=== PATIENT | female | born 1960 | race Caucasian/White ===

== ENCOUNTER 2019-07-09 10:36 | Emergency (ER) | payer SELFPAY ==
[~2019-07-09] VITALS: Ht 167.7 cm; Wt 79.4 kg
[2019-07-09 11:09] LABS: BASOPHILS % (AUTO) 0 % (0-10); EOSINOPHILS # (AUTO) 0.1 10^3/uL (0.0-0.3); EOSINOPHILS % (AUTO) 2 % (0-10); HEMATOCRIT 46 % (35-52); HEMOGLOBIN 15.2 G/DL (11.5-16.0); LYMPHOCYTES # (AUTO) 2.1 X 10^3 (1.0-4.0); LYMPHOCYTES % (AUTO) 29 % (12-44); MEAN CORPUSCULAR HEMOGLOBIN 31 PG (25-34); MEAN CORPUSCULAR HGB CONC 33 G/DL (32-36); MEAN CORPUSCULAR VOLUME 95 FL (80-99); MEAN PLATELET VOLUME 9.7 FL (7.4-10.4); MONOCYTES # (AUTO) 0.8 X 10^3 (0.0-1.0); MONOCYTES % (AUTO) 11 % (0-12); NEUTROPHILS # (AUTO) 4.1 X 10^3 (1.8-7.8); NEUTROPHILS % (AUTO) 57 % (42-75); PLATELET COUNT 349 10^3/uL (130-400); RED CELL DISTRIBUTION WIDTH 14.4 % (10.0-14.5); WHITE BLOOD COUNT 7.2 10^3/uL (4.3-11.0)
[2019-07-09] MEDS ORDERED: NS IV 1000 ML 1,000 ML ONE (11:12)
[2019-07-09] MEDS ORDERED: fentaNYL INJECTION 100 MCG/2 ML AMP IVP ONE (11:15)
[2019-07-09] MEDS ORDERED: NS IV 1000 ML 1,000 ML IV SCH (11:17)
--- NOTE | 2019-07-09 11:17 | ED General ---
General Chief Complaint: Respiratory Problems Stated Complaint: SOA Nursing Triage Note: pt amb to rm 9 with complaint of right sided rib pain and soa. states has been going on since june 06. has had a sore throat and fever during this time period. Nursing Sepsis Screen: No Definite Risk Source of Information: Patient Exam Limitations: No Limitations History of Present Illness Date Seen by Provider: Jul 09, 2019 Time Seen by Provider: 11:00 Initial Comments This 58-year-old woman presents to the emergency room with fairly excruciating pain in the right lower chest and chest wall. She first noticed the pain on June 06. She has a history of breast cancer and mastectomy on the right side. She has not seen an oncologist for 6 years and quit taking tamoxifen about 5 years ago because she could not afford it. She reports one day of fever in the past month. She is also had cough and sore throat which have now improved. She has no rash in the area of pain. Her chest wall is tender to palpation. Allergies and Home Medications Allergies Coded Allergies: No Known Drug Allergies (Unverified , 07/09/19) Home Medications Docusate Sodium 100 Mg Capsule, 100 MG PO DAILY Prescribed by: BLUE SANTOYO on 07/09/19 1312 Oxycodone HCl/Acetaminophen 1 Each Tablet, 1 TAB PO Q4H PRN for PAIN-MODERATE (5-7) Prescribed by: BLUE SANTOYO on 07/09/19 1313 Patient Home Medication List Home Medication List Reviewed: Yes Review of Systems Review of Systems Constitutional: see HPI EENTM: no symptoms reported Respiratory: see HPI Cardiovascular: no symptoms reported Gastrointestinal: no symptoms reported Genitourinary: no symptoms reported : No Musculoskeletal: see HPI Skin: no symptoms reported Psychiatric/Neurological: No Symptoms Reported Hematologic/Lymphatic: No Symptoms Reported Immunological/Allergic: no symptoms reported Past Yrzgwqz-Dzjxxu-Faxsjm Hx Past Med/Social Hx: Reviewed Nursing Past Med/Soc Hx Patient Social History Alcohol Use: Denies Use Recreational Drug Use: No Smoking Status: Current Everyday Smoker Type Used: Cigarettes Recent Foreign Travel: No Contact w/Someone Who Travel: No Recent Infectious Disease Expo: No Recent Hopitalizations: No Immunizations Up To Date Tetanus Booster (TDap): Unknown Seasonal Allergies Seasonal Allergies: No Past Medical History Surgeries: Yes Breast Respiratory: No Cardiac: No Neurological: No Genitourinary: No Gastrointestinal: No Musculoskeletal: No Endocrine: No HEENT: No Cancer: Yes Breast Did You Recieve Any Treatments: Yes What Type of Treatment Did You: Surgical Intervention Psychosocial: No Integumentary: No Blood Disorders: No Adverse Reaction/Blood Tranf: No Physical Exam Vital Signs Vital Signs - First Documented 07/09/19 10:36 Temp 36.2 Pulse 84 Resp 22 B/P (MAP) 118/79 (92) Pulse Ox 94 O2 Delivery Room Air Capillary Refill : Less Than 3 Seconds Height, Weight, BMI Height: '" Weight: lbs. oz. kg; 28.00 BMI Method: General Appearance: WD/WN, Mild Distress HEENT: PERRL/EOMI, TMs Normal, Normal ENT Inspection, Pharynx Normal Neck: Normal Inspection; No JVD Respiratory: No Accessory Muscle Use, No Respiratory Distress, Other (chest wall tender to palpation over the right lower anterior and lateral chest. No masses apparent. There are rubs and wheezes heard on the right. Left lung is clear.) Cardiovascular: Regular Rate, Rhythm, No Edema, No Murmur Gastrointestinal: Normal Bowel Sounds, Non Tender, Soft Extremity: Normal Inspection, No Pedal Edema Neurologic/Psychiatric: Alert, Oriented x3, No Motor/Sensory Deficits, Normal Mood/Affect, governor assembler hydraulic II-XII Norm as Tested Skin: Normal Color, Warm/Dry Progress/Results/Core Measures Suspected Sepsis Recent Fever Within 48 Hours: No Infection Criteria Present: None New/Unexplained Altered Menta: No Sepsis Screen: No Definite Risk SIRS Temperature: Pulse: 84 Respiratory Rate: 22 Laboratory Tests 07/09/19 10:49: White Blood Count 7.2 Blood Pressure 118 /79 Mean: 92 Laboratory Tests 07/09/19 10:49: Creatinine 0.81, Platelet Count 349, Total Bilirubin 0.5 Results/Orders Lab Results Laboratory Tests Test 07/09/19 10:49 Range/Units White Blood Count 7.2 4.3-11.0 10^3/uL Red Blood Count 4.86 4.35-5.85 10^6/uL Hemoglobin 15.2 11.5-16.0 G/DL Hematocrit 46 35-52 % Mean Corpuscular Volume 95 80-99 FL Mean Corpuscular Hemoglobin 31 25-34 PG Mean Corpuscular Hemoglobin Concent 33 32-36 G/DL Red Cell Distribution Width 14.4 10.0-14.5 % Platelet Count 349 130-400 10^3/uL Mean Platelet Volume 9.7 7.4-10.4 FL Neutrophils (%) (Auto) 57 42-75 % Lymphocytes (%) (Auto) 29 12-44 % Monocytes (%) (Auto) 11 0-12 % Eosinophils (%) (Auto) 2 0-10 % Basophils (%) (Auto) 0 0-10 % Neutrophils # (Auto) 4.1 1.8-7.8 X 10^3 Lymphocytes # (Auto) 2.1 1.0-4.0 X 10^3 Monocytes # (Auto) 0.8 0.0-1.0 X 10^3 Eosinophils # (Auto) 0.1 0.0-0.3 10^3/uL Basophils # (Auto) 0.0 0.0-0.1 10^3/uL D-Dimer < 0.27 0.00-0.49 UG/ML Sodium Level 141 135-145 MMOL/L Potassium Level 4.1 3.6-5.0 MMOL/L Chloride Level 107 98-107 MMOL/L Carbon Dioxide Level 21 21-32 MMOL/L Anion Gap 13 5-14 MMOL/L Blood Urea Nitrogen 13 7-18 MG/DL Creatinine 0.81 0.60-1.30 MG/DL Estimat Glomerular Filtration Rate > 60 BUN/Creatinine Ratio 16 Glucose Level 111 H 70-105 MG/DL Calcium Level 8.9 8.5-10.1 MG/DL Corrected Calcium 8.7 8.5-10.1 MG/DL Total Bilirubin 0.5 0.1-1.0 MG/DL Aspartate Amino Transf (AST/SGOT) 17 5-34 U/L Alanine Aminotransferase (ALT/SGPT) 13 0-55 U/L Alkaline Phosphatase 92 40-136 U/L C-Reactive Protein High Sensitivity 0.68 H 0.00-0.50 MG/DL Total Protein 7.0 6.4-8.2 GM/DL Albumin 4.3 3.2-4.5 GM/DL Group A Streptococcus Screen NEGATIVE NEGATIVE Micro Results Microbiology 07/09/19 Influenza Types A,B Antigen (ADRIAN) - Final, Complete My Orders Orders - BLUE RUDOLPH MD Cbc With Automated Diff (07/09/19 11:02) Comprehensive Metabolic Panel (07/09/19 11:02) Hs C Reactive Protein (07/09/19 11:02) Fibrin Degradation Products (07/09/19 11:02) Chest 1 View, Ap/Pa Only (07/09/19 11:02) Rapid Strep A Screen (07/09/19 11:02) Influenza A And B Antigens (07/09/19 11:02) Ed Iv/Invasive Line Start (07/09/19 11:02) Fentanyl Injection (Sublimaze Injection (07/09/19 11:15) Ns Iv 1000 Ml (Sodium Chloride 0.9%) (07/09/19 11:17) Ns Iv 1000 Ml (Sodium Chloride 0.9%) (07/09/19 11:12) Ct Chest W (07/09/19 11:39) Iohexol Injection (Omnipaque 350 Mg/Ml 1 (07/09/19 11:45) Received Contrast (Hold Metformin- Contr (07/09/19 11:45) Ns (Ivpb) (Sodium Chloride 0.9% Ivpb Bag (07/09/19 11:45) Oxycodone/Apap 5/325mg Tablet (Percocet (07/09/19 13:00) Ketorolac Injection (Toradol Injection) (07/09/19 13:00) Medications Given in ED Current Medications Medications Dose Ordered Sig/Ramona Route Start Time Stop Time Status Last Admin Dose Admin Fentanyl Citrate 50 mcg ONCE ONCE IVP 07/09/19 11:15 07/09/19 11:16 DC 07/09/19 11:24 50 MCG Iohexol 75 ml ONCE ONCE IV 07/09/19 11:45 07/09/19 11:50 DC 07/09/19 13:06 75 ML Ketorolac Tromethamine 15 mg ONCE ONCE IVP 07/09/19 13:00 07/09/19 13:01 DC 07/09/19 13:05 15 MG Oxycodone/ Acetaminophen 1 tab ONCE ONCE PO 07/09/19 13:00 07/09/19 13:01 DC 07/09/19 13:04 1 TAB Sodium Chloride 100 ml ONCE ONCE IV 07/09/19 11:45 07/09/19 11:50 DC 07/09/19 13:06 80 ML Vital Signs/I&O 07/09/19 10:36 Temp 36.2 Pulse 84 Resp 22 B/P (MAP) 118/79 (92) Pulse Ox 94 O2 Delivery Room Air Capillary Refill : Less Than 3 Seconds Blood Pressure Mean: 92 Progress Note #1: Time: 11:22 Progress Note Patient was seen and examined. Labs and x-ray have been ordered. Patient does desire pain control. Fentanyl was ordered. Progress Note #2: Time: 13:19 Progress Note Chest x-ray revealed a nodular density in the right lung. X-ray was followed by CT scan which showed multiple bilateral pulmonary nodules and bony lesions in the ribs and sternum as well as possibly the liver. This was highly suggestive of metastatic disease from her breast cancer. I discussed the findings with the patient and advised prompt follow-up with the Cancer Center. I spoke with Dr. Steel who would like to see her in the clinic. Patient will stop by the Cancer Center after leaving the emergency room to fill out paperwork and schedule the appointment. Patient's pain was treated with fentanyl followed by Toradol and Percocet. Diagnostic Imaging Diagonstic Imaging: CT Plain Films/CT/US/NM/MRI: chest Comments CT chest viewed by me and report reviewed. See report below: NAME: SANDY MCCALL [facility] REC#: [id number] PT STATUS: REG ER : 1960 PHYSICIAN: BLUE RUDOLPH MD ADMIT DATE: 07/09/19/ER Draft Date of Exam:07/09/19 CT CHEST W TECHNIQUE: Multiple contiguous axial images were obtained through the chest with the use of intravenous contrast. All CT scans use one or more of the following dose optimizing techniques: automated exposure control, MA and/or KvP adjustment based on a patient size and exam type, or iterative reconstruction. INDICATION: Right-sided chest pain. Further evaluation of pulmonary nodule seen on chest radiograph. COMPARISON: Chest radiograph performed earlier same day. FINDINGS: Lungs and airway: No endoluminal nodule within the trachea. There is a rounded right upper lobe pulmonary nodule measuring 2.4 x 2.1 x 2.4 cm. Additionally, there are bilateral lower lobe rounded pulmonary nodules. There are at least 2 nodules in the right lower lobe with the largest measuring 0.9 cm. The largest nodule in the left lower lobe measures 1.0 cm. Pleura: There is some soft tissue nodularity along the anterior and medial aspects of the right visceral pleura. No left pleural nodularity. No pleural effusion. Heart and mediastinum: No subclavicular or axillary lymphadenopathy. Right axillary lymph node dissection has been performed. There are a few mildly enlarged mediastinal lymph nodes with the largest patient accounting representative lymph node measuring 1.1 cm in the lower right paratracheal position. No hilar lymphadenopathy. No juxtaphrenic lymphadenopathy. Small sliding-type hiatal hernia. Normal caliber thoracic aorta. Heart is normal in size without pericardial effusion. Upper abdomen: Subcentimeter hypodensity in the left hepatic lobe is too small to characterize. Musculoskeletal: Erosive changes involving the right medial aspect of sternal body are noted. There is also ill-defined infiltrative type appearance of the anterior and lateral aspect of the right 3rd rib. No pathologic fracture within the thoracic spine. Subcutaneous soft tissue nodule in the middle one 3rd of the back, located just left of midline measures 1.1 x 2.1 cm and may represent a sebaceous cyst. IMPRESSION: 1. Numerous bilateral pulmonary nodules, mediastinal lymphadenopathy and right pleural nodular thickening are features highly suspicious for metastatic disease. Given the right mastectomy, breast cancer would be the most likely etiology. 2. Irregular destructive changes in the mediastinum and right anterior 3rd rib could represent metastatic disease involvement versus a radiation induced changes. 3. Subcentimeter nodule within the liver is incompletely evaluated on this exam. Recommend a follow-up CT abdomen without and with IV contrast utilizing the liver protocol. Alternatively, MRI of the abdomen utilizing liver protocol could be utilized. Dictated on workstation # [id number] Dict: 07/09/19 1222 Trans: 07/09/19 1239 [facility] [id number] Interpreted by: CLAIRE MEDINA MD Diagonstic Imaging: Xray Plain Films/CT/US/NM/MRI: chest Comments Chest x-ray viewed by me and report reviewed. See report below: NAME: SANDY MCCALL MED REC#: [id number] PT STATUS: REG ER : 1960 PHYSICIAN: BLUE RUDOLPH MD ADMIT DATE: 07/09/19/ER Signed Date of Exam:07/09/19 CHEST 1 VIEW, AP/PA ONLY INDICATION: Pain, shortness of air COMPARISON: None available TECHNIQUE: Single frontal radiograph of the chest dated 07/09/2019. FINDINGS: The cardiac silhouette is within normal limits in size. No significant pulmonary vascular congestion. Surgical clips are seen overlying the right axillary region. Asymmetric density overlying the right chest is noted which may relate to right breast surgery. 2.6 cm round nodule is noted overlying the right hilar region. Additional 1.2 cm nodule is noted overlying the right lung base. Additional questionable 0.7 cm nodule overlying the left upper lung. No pleural effusion. No pneumothorax. No acute osseous abnormality. IMPRESSION: Dominant 2.6 cm right-sided pulmonary nodule with additional questionable subcentimeter bilateral pulmonary nodules. These are of uncertain etiology, though metastatic disease/malignancy should be considered. Recommend a CT of the chest, preferably with contrast for further evaluation. Postsurgical changes associated with the right axilla and likely right breast. Report was called to [facility] ER by [email or web address] at 11:50 am. Dictated by: Dictated on workstation # [id number] Dict: 07/09/19 1144 Trans: 07/09/19 1158 YAZMIN [id number] Interpreted by: DAVID VARGAS MD Electronically signed by: DAVID VARGAS MD 07/09/19 1158 Departure Impression Primary Impression: Chest wall pain Additional Impressions: Pulmonary nodules Rib lesion History of breast cancer Disposition: HOME, SELF-CARE Condition: Stable Departure-Patient Inst. Decision time for Depature: 13:13 Referrals: VERNON STEEL Patient Instructions: Bone Metastasis Add. Discharge Instructions: Go directly to the Cancer Center from the emergency room to sign a release for medical information and to arrange an appointment time. Dr. Steel would like to see you tomorrow. For pain you may try ibuprofen up to 400 mg every 6 hours as needed. For pain not controlled by ibuprofen use Percocet as prescribed. When you take Percocet, use the Colace stool softener to prevent constipation. Return to care if you have worsening symptoms not controlled by your medications or you develop new concerning symptoms. All discharge instructions reviewed with patient and/or family. Voiced understanding. Scripts Docusate Sodium (Colace) 100 Mg Capsule 100 MG PO DAILY, #30 CAP Prov: BLUE RUDOLPH MD 07/09/19 Oxycodone HCl/Acetaminophen (Percocet 5-325 mg Tablet) 1 Each Tablet 1 TAB PO Q4H PRN for PAIN-MODERATE (5-7) MDD 6 TABS, #20 TAB Prov: BLUE RUDOLPH MD 07/09/19 Copy Copies To 1: VERNON STEEL JOSHUA T MD Jul 09, 2019 11:17
--- OUTSIDE RECORDS SUMMARY | 2019-07-09 11:24 | XMS REPORT ---
Author Author Lora Irvin Doctor Organization [facility] Address Unknown Phone Unavailable Care Team Providers Care Oil Well Directional Surveyor Name Role Phone Migration, Doctor Unavailable Unavailable PROBLEMS Type Condition ICD9-CM Code NZK43-IB Code Onset Dates Condition S tatus SNOMED Code Problem Cigarette nicotine dependence without complication F17.210 Active 96842652 Problem History of breast cancer Z85.3 Activ e 634656290 Problem Lumbago with sciatica, left side M54.42 Active 663451154 Problem Lumbago with sciatica, right side M54.41 Active [id number] ALLERGIES No Information ENCOUNTERS Encounter Location Date Diagnosis [place] [address] [address] May, [facility] [address] [address] Jan, [place] [address] [address] Jan, Right foot pain M79.671 ; History of tommy ast cancer Z85.3 ; Plantar fasciitis of left foot M72.2 and Cigarette nicotine dependence without complication F17.210 [facility]ALK [facility] [address] [facility] [id number] [place] [address] Jan, Lumbago with sciatica, left side M54.42 and Lumbago with sciatica, right side M54.41 [facility] [address] [address] Jul, [facility] [address] [address] Jul, Dylon CHAVEZ [address] [facility] [id number] [facility] [place] [id number] Feb, [facility] [address] [address] Feb, [facility] [address] [facility] [id number] [place] [id number] Feb, [facility] [address] [id number] [place] [address] Feb, [facility] [address] [id number] [place] [address] August, [facility] [address] [id number] [place] [address] August, [facility] [address] [id number] [place] [address] August, [facility] [address] [id number] [place] [address] August, [facility] [address] [id number] [place] [address] August, [facility] [address] [facility] [id number] [place] [id number] August, [facility] [address] [id number] [place] [address] Mar, [facility] [address] [facility] [place] [address] Mar, [facility] [address] [facility] [place] [address] Jan, [facility] [address] [facility] [place] [address] 15 Jan, 2013 [facility] [address] [facility] [place] [address] 14 Jan, 2013 [facility] [address] [facility] [place] [address] 14 Jan, 2013 [facility] [address] [facility] [place] [address] Jan, [facility] [address] [facility] [id number] [place] [id number] 07 Jan, 2013 [facility] [address] [facility] [place] [address] 23 Dec, 2012 [facility] [address] [place] [id number] [place] [id number] Dec, [facility] [address] [id number] [place] [address] 16 Dec, 2012 [facility] [address] [id number] [place] [address] Nov, [facility] [address] [facility] [place] [address] Oct, [facility] [address] [id number] [place] [address] Oct, [facility] [address] [place] [id number] [place] [address] Sep, [facility] [address] [place] [id number] [place] [address] 24 Sep, 2012 [facility] [address] [place] [id number] [place]AC[place] [id number] Sep, [facility] [address] [place] [id number] [place] [address] Sep, [facility] [address] [place] [id number] [place] [id number] Sep, [facility] [address] [place] [id number] [place] [address] 10 Sep, 2012 [facility] [address] [place] [id number] [place] [address] 07 Sep, 2012 [facility] [address] [place] [id number] [place] [id number] 04 Sep, 2012 [facility] [address] [facility] [place] [address] 03 Sep, 2012 [facility] [address] [place] [id number] [place] [address] August, [facility] [address] [id number] [place] [address] August, [facility] [address] [id number] [place] [address] Feb, Dylon CHAVEZ [address] [facility] [id number] JACQUI [place] [id number] Jan, [facility] [address] [id number] [place] [address] Jan, [facility] [address] [facility] [place] [address] Oct, [facility] [address] [facility] [place] [address] Oct, Dylon CHAVEZ [address] [facility] [id number] [place]AC[place] [id number] Sep, IMMUNIZATIONS No Known Immunizations SOCIAL HISTORY Never Assessed REASON FOR VISIT PLAN OF CARE VITAL SIGNS MEDICATIONS Unknown Medications RESULTS No Results PROCEDURES No Known procedures INSTRUCTIONS MEDICATIONS ADMINISTERED No Known Medications MEDICAL (GENERAL) HISTORY Type Description Date Medical History DDD Medical History COPD Medical History Breast cancer Medical History hiatal hernia Surgical History Rt breast mastectomy Surgical History Lt thumb
--- OUTSIDE RECORDS SUMMARY | 2019-07-09 11:24 | XMS REPORT ---
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 03910080785199527 Problem Lumbago with sciatica, left side M54.42 Active 313248346 Problem Lumbago with sciatica, right side M54.41 Active 579032669311449 Problem Cigarette nicotine dependence without complication F17.210 Active 82638446 ALLERGIES No Information ENCOUNTERS Encounter Location Date Diagnosis [facility] [id number] [place] [address] May, Chest wall pain R07.89 [place] [address] [address] May, Plantar fasciitis, bilateral M72.2 ; Tar eriberto coalition of left foot Q66.89 and Neuroma D36.10 [place] [address] [address] Jan, [address] [address] Jan, Right foot pain M79.671 ; History of tommy ast cancer Z85.3 ; Plantar fasciitis of left foot M72.2 and Cigarette nicotine dependence without complication F17.210 [facility] [id number] [place] [address] Jan, Lumbago with sciatica, left side M54.42 and Lumbago with sciatica, right side M54.41 [place] [address] [address] Jul, [facility] [address] [id number] [place] [address] Jul, Dylon [facility] [address] [facility] [place] [id number] [place] [id number] Feb, [facility] [address] [id number] [place] [address] Feb, zjorjeHUANG [facility] [address] [facility] [place] [id number] [place] [id number] Feb, [facility] [id number] [place] [address] Feb, [facility] [id number] [place] [address] August, [facility] [id number] [place] [address] August, [facility] [id number] [place] [address] August, [facility] [id number] [place] [address] August, [facility] [id number] [place] [address] August, lorrieHUANG [facility] [address] [facility] [place] [id number] [place] [id number] August, [facility] [id number] [place] [address] Mar, [facility] [address] [id number] [place] [address] Mar, [facility] [id number] [place] [address] Jan, [facility] [id number] [place] [address] Jan, [facility] [id number] [place] [address] 14 Jan, 2013 [facility] [address] [id number] [place] [address] 14 Jan, 2013 [facility] [address] [id number] [place] [address] 11 Jan, 2013 [facility] [address] [id number] COFFEYVIYady [place] [id number] Jan, [facility] [id number] [place] [address] 23 Dec, 2012 [facility] [address] [facility] [place] [id number] [place] [id number] Dec, [facility] [address] [id number] [place] [address] 16 Dec, 2012 [facility] [address] [id number] [place] [address] Nov, [facility] [id number] [place] [address] Oct, [facility] [address] [id number] [place] [address] Oct, [facility] [id number] [place] [address] Sep, [facility] [address] [id number] [place] [address] 24 Sep, 2012 [facility] [address] [id number] [place] [id number] 14 Sep, 2012 [facility] [address] [id number] [place] [address] 13 Sep, 2012 [facility] [address] [id number] [place] [id number] 12 Sep, 2012 [facility] [address] [id number] [place] [address] 10 Sep, 2012 [facility] [id number] [place] [address] Sep, [place] [id number] [facility] [place] [id number] [facility] [place] [id number] Sep, [facility] [address] [id number] [place] [address] Sep, [facility] [address] [id number] [place] [address] August, [facility] [id number] [place] [address] August, [facility] [address] [id number] [place] [address] Feb, [address] [id number] [place] [id number] Jan, [facility] [address] [id number] [place] [address] Jan, [facility] [address] [id number] [place] [address] Oct, [facility] [address] [id number] [place] [address] Oct, [place] [address] [facility] [place] [id number] [place] [id number] Sep, IMMUNIZATIONS No Known Immunizations SOCIAL HISTORY Never Assessed REASON FOR VISIT PLAN OF CARE VITAL SIGNS MEDICATIONS No Known Medications RESULTS No Results PROCEDURES No Known procedures INSTRUCTIONS MEDICATIONS ADMINISTERED No Known Medications MEDICAL (GENERAL) HISTORY Type Description Date Medical History DDD Medical History COPD Medical History Breast cancer Medical History hiatal hernia Surgical History Rt breast mastectomy Surgical History Lt thumb
--- OUTSIDE RECORDS SUMMARY | 2019-07-09 11:24 | XMS REPORT ---
Author Author Lora Irvin Doctor Organization [facility] Address Unknown Phone Unavailable Care Team Providers Care Automatic Drilling Machine Operator Name Role Phone Migration, Doctor Unavailable Unavailable PROBLEMS Type Condition ICD9-CM Code RPN46-JA Code Onset Dates Condition S tatus SNOMED Code Problem Cigarette nicotine dependence without complication F17.210 Active 63884465 Problem History of breast cancer Z85.3 Activ e 101790028 Problem Lumbago with sciatica, left side M54.42 Active 907434615 Problem Lumbago with sciatica, right side M54.41 Active [id number] ALLERGIES No Information ENCOUNTERS Encounter Location Date Diagnosis [place] [address] [address] May, [facility] [address] [address] Jan, [place] [address] [address] Jan, Right foot pain M79.671 ; History of tommy ast cancer Z85.3 ; Plantar fasciitis of left foot M72.2 and Cigarette nicotine dependence without complication F17.210 [facility] WALK IN [facility] [address] [facility] [id number] [address] [place] [address] Jan, Lumbago with sciatica, left side M54.42 and Lumbago with sciatica, right side M54.41 [facility] [address] [address] Jul, [facility] [address] [address] Jul, Dylon CHAVEZ [address] [facility] [id number] [facility] [place] [id number] Feb, [facility] [address] [address] Feb, [facility] [address] [facility] [id number] [place] [id number] Feb, [facility] [address] [id number] [place] [address] Feb, [facility] [address] [id number] [place] [address] August, [facility] [address] [id number] [place] [address] August, [facility] [address] [id number] [place] [address] August, [facility] [address] [id number] [place] [address] August, [facility] [address] [id number] [place] [address] August, [facility] [address] [facility] [id number] NISHJONATAN [place] [id number] August, [facility] [address] [id number] [place] [address] Mar, [facility] [address] [id number] [place] [address] Mar, [facility] [address] [id number] [place] [address] Jan, [facility] [address] [id number] [place] [address] 15 Jan, 2013 [facility] [address] [id number] [place] [address] 14 Jan, 2013 [facility] [address] [id number] [place] [address] 14 Jan, 2013 [facility] [address] [id number] [place] [address] Jan, [facility] [address] [facility] [id number] [place] [id number] 07 Jan, 2013 [facility] [address] [facility] [place] [address] 23 Dec, 2012 [facility] [address] [id number] COFFEYJONATAN [place] [id number] Dec, [facility] [address] [id number] [place] [address] 16 Dec, 2012 [facility] [address] [id number] [place] [address] Nov, [facility] [address] [id number] [place] [address] Oct, [facility] [address] [id number] [place] [address] Oct, [facility] [id number] [place] [address] Sep, [facility] [id number] [place] [address] 24 Sep, 2012 [facility] [address] [id number] JACQUI [place] [id number] Sep, [facility] [address] [id number] [place] [address] Sep, [facility] [address] [id number] [place] [address] Sep, [facility] [id number] [place] [address] 10 Sep, 2012 [facility] [address] [id number] [place] [address] 07 Sep, 2012 [facility] [address] [id number] [place] [id number] 04 Sep, 2012 [facility] [address] [facility] [place] [address] 03 Sep, 2012 [facility] [id number] [place] [address] August, [facility] [address] [facility] [place] [address] August, [facility] [address] [facility] [place] [address] Feb, Dylon CHAVEZ [address] [facility] [id number] [place]ACQUI [place] [id number] Jan, [facility] [address] [id number] [place] [address] Jan, [facility] [address] [id number] [place] [address] Oct, [facility] [address] [id number] [place] [address] Oct, Dylon CHAVEZ [address] [facility] [id number] JACQUI [place] [id number] Sep, IMMUNIZATIONS No Known Immunizations SOCIAL HISTORY [...]
--- OUTSIDE RECORDS SUMMARY | 2019-07-09 11:24 | XMS REPORT ---
Author Author Lora Irvin Doctor Organization [facility] Address Unknown Phone Unavailable Care Team Providers Care Supervisor Screen Making Name Role Phone Migration, Doctor Unavailable Unavailable PROBLEMS Type Condition ICD9-CM Code [id number] Code Onset Dates Condition S tatus SNOMED Code Problem History of breast cancer Z85.3 Activ e 992455168 Problem Tarsal coalition of left foot Q66.89 Active 97343440575732494 Problem Lumbago with sciatica, left side M54.42 Active 503864797 Problem Lumbago with sciatica, right side M54.41 Active 323531527621074 Problem Cigarette nicotine dependence without complication F17.210 Active 25275493 ALLERGIES No Information ENCOUNTERS Encounter Location Date Diagnosis [facility] WALK IN [facility] [id number] [address] [place] [address] May, Chest wall pain R07.89 [place] [address] [address] May, Plantar fasciitis, bilateral M72.2 ; Tar eriberto coalition of left foot Q66.89 and Neuroma D36.10 [place] [address] [address] Jan, [address] [address] Jan, Right foot pain M79.671 ; History of tommy ast cancer Z85.3 ; Plantar fasciitis of left foot M72.2 and Cigarette nicotine dependence without complication F17.210 [facility] WALK IN [facility] [id number] [place] [address] Jan, Lumbago with sciatica, left side M54.42 and Lumbago with sciatica, right side M54.41 [place] [address] [address] Jul, [facility] [address] [id number] [place] [address] Jul, [facility] [address] [facility] [id number] [place] [id number] Feb, [facility] [address] [id number] [place] [address] Feb, zjorjeHUANG SASSAFRAS [address] [facility] [id number] [place] [id number] Feb, [facility] [id number] [place] [address] Feb, [facility] [id number] [place] [address] August, [facility] [id number] [place] [address] August, [facility] [id number] [place] [address] August, [facility] [id number] [place] [address] August, [facility] [id number] [place] [address] August, [facility]HUANG [facility] [address] [facility] [id number] [place] [id number] August, [facility] [id number] [place] [address] Mar, [facility] [address] [id number] [place] [address] Mar, [facility] [id number] [place] [address] Jan, [facility] [id number] [place] [address] Jan, [facility] [id number] [place] [address] 14 Jan, 2013 [facility] [address] [id number] [place] [address] 14 Jan, 2013 [facility] [address] [id number] [place] [address] 11 Jan, 2013 [facility] [address] [id number] COFFEYVIYady [place] [id number] Jan, [facility] [id number] [place] [address] 23 Dec, 2012 [facility] [address] [facility] [id number] [place] [id number] Dec, [facility] [address] [id number] [place] [address] 16 Dec, 2012 [facility] [address] [id number] [place] [address] Nov, [facility] [id number] [place] [address] Oct, [facility] [address] [id number] [place] [address] Oct, [facility] [id number] [place] [address] Sep, [facility] [address] [id number] [place] [address] 24 Sep, 2012 [facility] [address] [id number] [place] [id number] 14 Sep, 2012 [facility] [address] [id number] [place] [address] 13 Sep, 2012 [facility] [address] [id number] [place] [id number] 12 Sep, 2012 [facility] [address] [id number] [place] [address] 10 Sep, 2012 [facility] [id number] [place] [address] Sep, [place] [id number] [facility] [id number] [facility] [place] [id number] Sep, [facility] [address] [id number] [place] [address] Sep, [facility] [address] [id number] [place] [address] August, [facility] [id number] [place] [address] August, [facility] [address] [id number] [place] [address] Feb, [address] [id number][place] [id number] Jan, [facility] [address] [id number] [place] [address] Jan, [facility] [address] [id number] [place] [address] Oct, [facility] [address] [id number] [place] [address] Oct, [place] [address] [facility] [id number] [place] [id number] Sep, IMMUNIZATIONS No Known Immunizations SOCIAL HISTORY [...]
--- OUTSIDE RECORDS SUMMARY | 2019-07-09 11:24 | XMS REPORT ---
Author Author Lora Irvin Doctor Organization [facility] Address Unknown Phone Unavailable Care Team Providers Care Oxygen Therapist Name Role Phone Migration, Doctor Unavailable Unavailable PROBLEMS Type Condition ICD9-CM Code BET33-FE Code Onset Dates Condition S tatus SNOMED Code Problem Cigarette nicotine dependence without complication F17.210 Active 17856686 Problem History of breast cancer Z85.3 Activ e 817628092 Problem Lumbago with sciatica, left side M54.42 Active 839323742 Problem Lumbago with sciatica, right side M54.41 Active [id number] ALLERGIES No Information ENCOUNTERS Encounter Location Date Diagnosis [place] [address] [address] May, [facility] [address] [address] Jan, [place] [address] [address] Jan, Right foot pain M79.671 ; History of tommy ast cancer Z85.3 ; Plantar fasciitis of left foot M72.2 and Cigarette nicotine dependence without complication F17.210 [facility] [address] [facility] [id number] [place] [address] Jan, Lumbago with sciatica, left side M54.42 and Lumbago with sciatica, right side M54.41 [facility] [address] [address] Jul, [facility] [address] [address] Jul, Dylon CHAVEZ [address] [facility] [id number] [facility] [place] [id number] Feb, [facility] [address] [address] Feb, [facility] [address] [facility] [id number] [place] [id number] Feb, [facility] [address] [id number] [place] [address] Feb, [facility] [address] [id number] [place] [address] August, [facility] [address] [id number] [place] [address] August, [facility] [address] [id number] [place] [address] August, [facility] [address] [id number] [place] [address] August, [facility] [address] [id number] [place] [address] August, [facility] [address] [facility] [id number] [place] [id number] August, [facility] [address] [id number] [place] [address] Mar, [facility] [address] [id number] [place] [address] Mar, [facility] [address] [id number] [place] [address] Jan, [facility] [address] [id number] [place] [address] 15 Jan, 2013 [facility] [address] [id number] [place] [address] 14 Jan, 2013 [facility] [address] [id number] [place] [address] 14 Jan, 2013 [facility] [address] [id number] [place] [address] Jan, [facility] [address] [facility] [id number] [place] [id number] 07 Jan, 2013 [facility] [address] [id number] [place] [address] 23 Dec, 2012 [facility] [address] [place] [id number] [place] [id number] Dec, [facility] [address] [id number] [place] [address] 16 Dec, 2012 [facility] [address] [id number] [place] [address] Nov, [facility] [address] [id number] [place] [address] Oct, [facility] [address] [id number] [place] [address] Oct, [facility] [address] [place] [id number] [place] [address] Sep, [facility] [address] [place] [id number] [place] [address] 24 Sep, 2012 [facility] [address] [place] [id number] [place] [id number] Sep, [facility] [address] [place] [id number] [place] [address] Sep, [facility] [address] [place] [id number] [place] [id number] Sep, [facility] [address] [place] [id number] [place] [address] 10 Sep, 2012 [facility] [address] [place] [id number] [place] [address] 07 Sep, 2012 [facility] [address] [place] [id number] [place] [id number] 04 Sep, 2012 [facility] [address] [id number] [place] [address] 03 Sep, 2012 [facility] [address] [place] [id number] [place] [address] August, [facility] [address] [facility] [id number] [place] [address] August, [facility] [address] [id number] [place] [address] Feb, [facility] [address] [facility] [id number] [place] [id number] Jan, [facility] [address] [id number] [place] [address] Jan, [facility] [address] [id number] [place] [address] Oct, [facility] [address] [id number] [place] [address] Oct, [facility] [address] [facility] [id number] [place] [id number] Sep, IMMUNIZATIONS No Known Immunizations SOCIAL HISTORY Never Assessed REASON FOR VISIT PLAN OF CARE VITAL SIGNS Height 64 in 2013-08-15 Weight 178.2 lbs 2013-08-15 Temperature 97.6 degrees Fahrenheit 2013-08-15 Heart Rate 80 bpm 2013-08-15 Respiratory Rate 20 2013-08-15 Blood pressure systolic 122 mmHg 2013-08-15 Blood pressure diastolic 78 mmHg 2013-08-15 MEDICATIONS Unknown Medications RESULTS No Results PROCEDURES Procedure Date Ordered Result Body Site MEASURE BLOOD OXYGEN LEVEL August 15, 2013 INSTRUCTIONS MEDICATIONS ADMINISTERED No Known Medications MEDICAL (GENERAL) HISTORY Type Description Date Medical History DDD Medical History COPD Medical History Breast cancer Medical History hiatal hernia Surgical History Rt breast mastectomy Surgical History Lt thumb
[2019-07-09 11:25] LABS: ALANINE AMINOTRANSFERASE 13 U/L (0-55); ALBUMIN 4.3 GM/DL (3.2-4.5); ALKALINE PHOSPHATASE 92 U/L (40-136); BILIRUBIN,TOTAL 0.5 MG/DL (0.1-1.0); BUN/CREATININE RATIO 16; CALCIUM 8.9 MG/DL (8.5-10.1); CARBON DIOXIDE 21 MMOL/L (21-32); CHLORIDE 107 MMOL/L (98-107); CREATININE SERUM 0.81 MG/DL (0.60-1.30); GFR ESTIMATED > 60; GLUCOSE 111 MG/DL (70-105); POTASSIUM 4.1 MMOL/L (3.6-5.0); SODIUM 141 MMOL/L (135-145)
--- NOTE | 2019-07-09 11:33 | NUR ---
Patient is awake and alert, sitting on bed. Fentanyl given IV and NS infusing. Call light within reach. Patient denies any other needs at this time.
[2019-07-09] MEDS ORDERED: HOLD METFORMIN - RECEIVED CONTRAST 20 ML VIAL IV SCH (11:45)
[2019-07-09] MEDS ORDERED: IOHEXOL 350 MG/ML 100 ML (OMNIPAQUE 350) VIAL IV ONE (11:45)
[2019-07-09] MEDS ORDERED: NS 100 ML (IVPB) BAG IV ONE (11:45)
--- NOTE | 2019-07-09 11:51 | Diagnostic Imaging Report ---
INDICATION: Pain, shortness of air COMPARISON: None available TECHNIQUE: Single frontal radiograph of the chest dated 07/09/2019. FINDINGS: The cardiac silhouette is within normal limits in size. No significant pulmonary vascular congestion. Surgical clips are seen overlying the right axillary region. Asymmetric density overlying the right chest is noted which may relate to right breast surgery. 2.6 cm round nodule is noted overlying the right hilar region. Additional 1.2 cm nodule is noted overlying the right lung base. Additional questionable 0.7 cm nodule overlying the left upper lung. No pleural effusion. No pneumothorax. No acute osseous abnormality. IMPRESSION: Dominant 2.6 cm right-sided pulmonary nodule with additional questionable subcentimeter bilateral pulmonary nodules. These are of uncertain etiology, though metastatic disease/malignancy should be considered. Recommend a CT of the chest, preferably with contrast for further evaluation. Postsurgical changes associated with the right axilla and likely right breast. Report was called to Ammon Amezquita/[facility] ER by neto at 11:50 am. Dictated by: Dictated on workstation # [id number]
--- NOTE | 2019-07-09 12:16 | NUR ---
RN went with patient to CT to assist physical therapy technician. Patient has difficulty with lying flat and states she can't breathe with lying flat. Patientplaced on NC at 4 LPM under her facemask and patient was able to tolerate the CT scan.
--- NOTE | 2019-07-09 12:39 | Diagnostic Imaging Report ---
CT CHEST W TECHNIQUE: Multiple contiguous axial images were obtained through the chest with the use of intravenous contrast. All CT scans use one or more of the following dose optimizing techniques: automated exposure control, MA and/or KvP adjustment based on a patient size and exam type, or iterative reconstruction. INDICATION: Right-sided chest pain. Further evaluation of pulmonary nodule seen on chest radiograph. COMPARISON: Chest radiograph performed earlier same day. FINDINGS: Lungs and airway: No endoluminal nodule within the trachea. There is a rounded right upper lobe pulmonary nodule measuring 2.4 x 2.1 x 2.4 cm. Additionally, there are bilateral lower lobe rounded pulmonary nodules. There are at least 2 nodules in the right lower lobe with the largest measuring 0.9 cm. The largest nodule in the left lower lobe measures 1.0 cm. Pleura: There is some soft tissue nodularity along the anterior and medial aspects of the right visceral pleura. No left pleural nodularity. No pleural effusion. Heart and mediastinum: No subclavicular or axillary lymphadenopathy. Right axillary lymph node dissection has been performed. There are a few mildly enlarged mediastinal lymph nodes with the largest construction sales representative lymph node measuring 1.1 cm in the lower right paratracheal position. No hilar lymphadenopathy. No juxtaphrenic lymphadenopathy. Small sliding-type hiatal hernia. Normal caliber thoracic aorta. Heart is normal in size without pericardial effusion. Upper abdomen: Subcentimeter hypodensity in the left hepatic lobe is too small to characterize. Musculoskeletal: Erosive changes involving the right medial aspect of sternal body are noted. There is also ill-defined infiltrative type appearance of the anterior and lateral aspect of the right 3rd rib. No pathologic fracture within the thoracic spine. Subcutaneous soft tissue nodule in the middle one 3rd of the back, located just left of midline measures 1.1 x 2.1 cm and may represent a sebaceous cyst. IMPRESSION: 1. Numerous bilateral pulmonary nodules, mediastinal lymphadenopathy and right pleural nodular thickening are features highly suspicious for metastatic disease. Given the right mastectomy, breast cancer would be the most likely etiology. 2. Irregular destructive changes in the mediastinum and right anterior 3rd rib could represent metastatic disease involvement versus a radiation induced changes. 3. Subcentimeter nodule within the liver is incompletely evaluated on this exam. Recommend a follow-up CT abdomen without and with IV contrast utilizing the liver protocol. Alternatively, MRI of the abdomen utilizing liver protocol could be utilized. Dictated by: Dictated on workstation # [id number]
[2019-07-09] MEDS ORDERED: KETOROLAC 30 MG/ML VIAL IVP ONE (13:00)
[2019-07-09] MEDS ORDERED: oxyCODONE/APAP 5/325MG (PERCOCET 5) TABLET PO ONE (13:00)
[2019-07-09] MEDS ORDERED: DOCU-143 PO (13:12)
[2019-07-09] MEDS ORDERED: OXYC1TAB87 PO (13:12)
[2019-07-09 13:29] VITALS: BP 151/99
== END 2019-07-09 13:30 | disposition home or self-care (01) ==
LOC: ER 10:37
DX: R07.89 Other chest pain (principal); R91.8 Other nonspecific abnormal finding of lung field; M89.9 Disorder of bone, unspecified; Z85.3 Personal history of malignant neoplasm of breast
CPT/HCPCS: 36415; 71045; 71260; 80053; 85025; 85379; 86141; 86300; 87430; 87804

== ENCOUNTER → 2019-07-12 | Outpatient (CLI) | payer OTHER ==
[~2019-07-12] MED LIST: CATHETER FLUSH 10 ML SYR IV PRN; DOCU-143 PO; OXYC1TAB87 PO
--- NOTE | 2019-07-12 08:12 | Diagnostic Imaging Report ---
PROCEDURE: CT abdomen and pelvis with and without contrast. TECHNIQUE: Precontrast acquisitions were acquired through the abdomen and pelvis. Multiple contiguous axial images were obtained through the abdomen and pelvis after the administration of intravenous contrast. Auto Exposure Controls were utilized during the CT exam to meet ALARA standards for radiation dose reduction. INDICATION: History breast cancer with metastatic disease. COMPARISON: 07/12/2019 FINDINGS: Included portions of the lung bases show small right effusion. Previously described right middle and lower lobe pulmonary nodules are again noted. These have been described in further detail on previous CT chest dated 07/09/2019. CT ABDOMEN: Moderate air and stool is noted scattered throughout the colon. Normal appendix is identified. Small bowel loops are nondistended. Area of abnormal hypodensity and hypoenhancement is noted within the inferior margins of the right lobe of the liver near the junction of segments 5 and 6. It measures 1.6 x 1.2 cm. Benign cyst is also noted within the lateral margins of segment 3 of the liver. The kidneys, adrenal glands, spleen, and pancreas have a normal CT appearance. There is no loculated fluid collection, free fluid, no free air within the abdomen. No abnormal mesenteric or retroperitoneal adenopathy is seen. Moderate scattered calcified aortic arterial atherosclerosis is noted. Osseous structures show no acute abnormalities. CT PELVIS: Urinary bladder is grossly unremarkable. There is no loculated fluid collection, free fluid, no free air within the pelvis. No abnormal adenopathy is seen. Osseous structures show no acute abnormalities. IMPRESSION: 1. Single suspicious lesion within the right lobe of the liver. Given the history of multiple pulmonary nodules seen on previous CT chest, findings are concerning for metastatic disease. 2. Moderate air and stool scattered throughout the colon. Please correlate for underlying constipation. 3. Redemonstration of previously described right middle and right lower lobe pulmonary nodules as well as small right pleural effusion. Dictated by: Dictated on workstation # [id number]
--- NOTE | 2019-07-12 10:33 | Diagnostic Imaging Report ---
Examination: Nuclear medicine whole body bone scan Indication: Right rib pain in patient with history of right breast cancer. Followup of abnormal findings on recent chest CT. Technique: Three hours following the intravenous administration of 26.70 mCi of Tc99m MDP, whole body imaging in the anterior and posterior views as well as spot images of the skull and thorax were performed. Comparison: Chest CT performed on 07/09/[address] abdomen and pelvis performed on 07/12/2019. Findings: There is mild increased activity in the right anterior 3rd rib, which corresponds with findings on prior chest CT. There is also mild increased low-level activity involving the left posterior 9th rib. More intense foci of activity are demonstrated in the right anterior 6th and 7th ribs near the costochondral junction. There is also a focus of increased activity in the inferior aspect of the sternum. There is suggestion of a small focus of increased activity in the left anterior calvarium. Distribution of radionuclide is otherwise homogenous throughout the visualized skeleton without focal areas of decreased or increased activity identified. Soft tissue activity is normal. Both kidneys excrete normally. Impression: Multifocal uptake involving the right 3rd, 6th and 7th ribs, the left 9th rib, inferior sternum, and left anterior calvarium are concerning for metastatic disease. More focal/intense activity involving the right anterior 6th and 7th ribs may reflect superimposed pathologic fractures. Dictated by: Dictated on workstation # [id number]
== END ==
LOC: CARD 06:33
PROVIDERS: ATTEND Internal Medicine Hematology & Oncology
DX: C50.919 Malignant neoplasm of unspecified site of unspecified female breast (principal); C79.51 Secondary malignant neoplasm of bone; R91.8 Other nonspecific abnormal finding of lung field; K76.9 Liver disease, unspecified; J90 Pleural effusion, not elsewhere classified
CPT/HCPCS: 74178; 78306

== ENCOUNTER 2019-07-15 08:32 | Outpatient (CLI) | payer SELFPAY ==
[2019-07-15] VITALS (14 sets, daily range): BP systolic 101–143; BP diastolic 63–95
[~2019-07-15] VITALS: Ht 170.2 cm; Wt 79.4 kg
[~2019-07-15 08:32] MED LIST changes: -CATHETER FLUSH 10 ML SYR IV PRN
[2019-07-15] MEDS ORDERED: NS IV 1000 ML 1,000 ML IV STA (08:37)
[2019-07-15] MEDS ORDERED: fentaNYL INJECTION 100 MCG/2 ML AMP IVP ONE (08:45)
[2019-07-15] MEDS ORDERED: LIDOCAINE 1% INJ 20 ML 20 ML VIAL INJ ONE (08:45)
[2019-07-15] MEDS ORDERED: MIDAZOLAM 2 MG/2 ML (VERSED) VIAL IVP ONE (08:45)
[2019-07-15 09:13] LABS: HEMOGLOBIN 14.1 G/DL (11.5-16.0); MEAN PLATELET VOLUME 9.4 FL (7.4-10.4); RED CELL DISTRIBUTION WIDTH 14.7 % (10.0-14.5); WHITE BLOOD COUNT 9.2 10^3/uL (4.3-11.0)
[2019-07-15 09:30] LABS: INR 0.9 (0.8-1.4); PROTHROMBIN TIME PATIENT 12.2 SEC (12.2-14.7)
[2019-07-15] MEDS ORDERED: fentaNYL INJECTION 100 MCG/2 ML AMP ONE (10:19)
[2019-07-15] MEDS ORDERED: MIDAZOLAM 2 MG/2 ML (VERSED) VIAL ONE (10:19)
[2019-07-15] MEDS ORDERED: NS IV 1000 ML 1,000 ML ONE (10:20)
[2019-07-15] MEDS ORDERED: HYDROcodone/APAP 5 MG/325 MG (LORTAB) TAB PO PRN (11:30)
--- NOTE | 2019-07-15 11:52 | Diagnostic Imaging Report ---
INDICATION: Liver mass. Patient presents for CT-guided biopsy. TECHNIQUE: All CT scans use one or more of the following dose optimizing techniques: automated exposure control, MA and/or KvP adjustment based on a patient size and exam type, or iterative reconstruction. Patient is brought to the CT suite placed on table in the supine position. Axial imaging through the abdomen was performed to evaluate appropriate entry site. Procedure was performed utilizing conscious sedation with radiology nursing and constant patient monitoring. Patient was administered a total of 100 mcg of fentanyl intravenously and 1 mg of Versed intravenously. Total procedure time was 18 minutes. Right abdomen was prepped and draped in usual sterile fashion. Small amount of 1% lidocaine was utilized for local anesthesia. A 18-gauge coaxial Temno needle was advanced into the right lobe of liver. Tip was placed along the margin of the low-density nodule in the inferior right lobe. Total of 3 core biopsies were obtained. Needle was then repositioned and 2 additional core biopsies were obtained. Needle was removed during injection of a blood patch. Hemostasis was obtained using manual compression. A follow-up imaging shows no complicating features. Patient tolerated procedure well and left the Department in stable condition. IMPRESSION: CT-guided core biopsy of a right lobe liver lesion, utilizing conscious sedation. Pathology results are currently pending. Dictated by: Dictated on workstation # [id number]
--- NOTE | 2019-07-15 12:10 | Pre-Op Note & Conscious Sedat ---
Pre-Operative Progress Note H&P Reviewed The H&P was reviewed, patient examined and no changes noted. Date H&P Reviewed: Jul 15, 2019 Time H&P Reviewed: 09:00 Pre-Op Diagnosis: Liver mass Conscious Sedation Pre-Proced Time 09:00 ASA Score 2 For ASA 3 and 4: Consider anesthesia and medical clearance. Also, for patients with a history of failed moderate sedation consider anesthesia. Airway Lungs Heart ASA score ASA 1: a normal healthy patient ASA 2: a patient with a mild systemic disease (mid diabetes, controlled hypertension, obesity ASA 3: a patient with a severe systemic disease that limits activity (angina, COPD, prior Myocardial infarction) ASA 4: a patient with an incapacitating disease that is a constant threat to life (CHF, renal failure) ASA 5: a moribund patient not expected to survive 24 hrs. (ruptured aneurysm) ASA 6: a declared brain- patient whose organs are being harvested. For emergent operations, add the letter E after the classification Mallampati Classification Grade 2 Sedation Plan Analgesia, Amnesia, Plan communicated to team members, Discussed options with patient/fam, Discussed risks with patient/fam The patient is an appropriate candidate to undergo the planned procedure, sedation, and anesthesia. The patient immediately re-assessed prior to indication. RONALD CHINCHILLA MD Jul 15, 2019 12:09
== END 2019-07-15 13:30 | disposition home or self-care (01) ==
LOC: SDC 08:32
PROVIDERS: ATTEND Internal Medicine Hematology & Oncology
DX: K76.9 Liver disease, unspecified (principal); C50.919 Malignant neoplasm of unspecified site of unspecified female breast; C79.51 Secondary malignant neoplasm of bone
CPT/HCPCS: 36415; 77012; 85027; 85610; 85730; 99156; 99157

== ENCOUNTER 2019-08-07 06:01 | Outpatient (RCR) | payer MEDICAID ==
[~2019-08-07] VITALS: Ht 165.1 cm; Wt 82.3 kg
== END 2019-08-07 10:49 | disposition home or self-care (01) ==
LOC: PREOP 06:01 → EDSTATUS 09:30 → PREOP 10:49
PROVIDERS: ATTEND Surgery
DX: Z01.818 Encounter for other preprocedural examination (principal)

== ENCOUNTER → 2019-09-10 | Outpatient (CLI) | payer MEDICAID ==
[~2019-09-10] MED LIST changes: +CATHETER FLUSH 10 ML SYR IV PRN; +HOLD METFORMIN - RECEIVED CONTRAST 20 ML VIAL IV SCH; +IOHEXOL 350 MG/ML 100 ML (OMNIPAQUE 350) VIAL IV ONE; +NS 100 ML (IVPB) BAG IV ONE
--- NOTE | 2019-09-10 16:17 | Diagnostic Imaging Report ---
PROCEDURE: CT angiography of the chest with contrast. TECHNIQUE: Multiple contiguous axial images were obtained through the chest after uneventful bolus administration of intravenous contrast. 3D reconstructed CTA MIP acquisitions were also performed. Auto Exposure Controls were utilized during the CT exam to meet ALARA standards for radiation dose reduction. INDICATION: Chest pain, shortness of air, and history of breast cancer. COMPARISON: Exam compared with chest CT 07/09/2019. FINDINGS: There are no intraluminal pulmonary arterial filling defects. There are no findings of pulmonary arterial embolus. The thoracic aorta is patent and nonaneurysmal. Chest wall irregularity and destructive changes to the distal right third rib, an unchanged finding. Presumed metastatic disease to the lower right sternum unchanged. There have been improvements in the pulmonary parenchymal metastatic disease. The dominant mass in the right middle lobe is 1.9 cm long axis today, previously 2.5 cm. Smaller lung nodules have either shown similar reduction or are no longer apparent. Paratracheal and precarinal mediastinal lymphadenopathy not convincingly changed. No abnormal tissue along the internal mammary chains. The right breast is surgically absent. The left breast extends outside the [id number]. No axillary adenopathy. No thoracic effusion or pneumothorax. Lateral sector low-density left hepatic lobe nodule unchanged, indeterminate. IMPRESSION: Improvements in pulmonary parenchymal metastatic disease. No real change in mediastinal adenopathy or destructive changes to the sternum and right third rib. Left hepatic lobe nodule indeterminate and unchanged. Negative for PE. Dictated by: Dictated on workstation # [id number]
== END ==
LOC: RAD 15:38
PROVIDERS: ATTEND Nurse Practitioner Adult Health
DX: C50.919 Malignant neoplasm of unspecified site of unspecified female breast (principal); C78.00 Secondary malignant neoplasm of unspecified lung; K76.89 Other specified diseases of liver
CPT/HCPCS: 71275

== ENCOUNTER 2019-10-01 12:26 | Outpatient (RCR) | payer MEDICAID, OTHER ==
[2019-08-01 13:59] LABS: BASOPHILS % (AUTO) 1 % (0-10); EOSINOPHILS # (AUTO) 0.2 10^3/uL (0.0-0.3); EOSINOPHILS % (AUTO) 3 % (0-10); HEMATOCRIT 44 % (35-52); HEMOGLOBIN 14.4 G/DL (11.5-16.0); LYMPHOCYTES # (AUTO) 1.7 X 10^3 (1.0-4.0); LYMPHOCYTES % (AUTO) 26 % (12-44); MEAN CORPUSCULAR HEMOGLOBIN 31 PG (25-34); MEAN CORPUSCULAR HGB CONC 32 G/DL (32-36); MEAN CORPUSCULAR VOLUME 96 FL (80-99); MEAN PLATELET VOLUME 9.3 FL (7.4-10.4); MONOCYTES # (AUTO) 0.7 X 10^3 (0.0-1.0); MONOCYTES % (AUTO) 10 % (0-12); NEUTROPHILS # (AUTO) 4.1 X 10^3 (1.8-7.8); NEUTROPHILS % (AUTO) 61 % (42-75); PLATELET COUNT 307 10^3/uL (130-400); RED CELL DISTRIBUTION WIDTH 14.7 % (10.0-14.5); WHITE BLOOD COUNT 6.7 10^3/uL (4.3-11.0)
[2019-08-01 14:18] LABS: ALANINE AMINOTRANSFERASE 14 U/L (0-55); ALBUMIN 4.2 GM/DL (3.2-4.5); ALKALINE PHOSPHATASE 80 U/L (40-136); BILIRUBIN,TOTAL 0.4 MG/DL (0.1-1.0); BUN/CREATININE RATIO 16; CALCIUM 9.1 MG/DL (8.5-10.1); CARBON DIOXIDE 27 MMOL/L (21-32); CHLORIDE 103 MMOL/L (98-107); CREATININE SERUM 0.73 MG/DL (0.60-1.30); GFR ESTIMATED > 60; GLUCOSE 102 MG/DL (70-105); POTASSIUM 4.5 MMOL/L (3.6-5.0); SODIUM 139 MMOL/L (135-145); TOTAL PROTEIN 6.9 GM/DL (6.4-8.2)
[2019-08-20 14:22] LABS: BASOPHILS # (AUTO) 0.1 10^3/uL (0.0-0.1); BASOPHILS % (AUTO) 1 % (0-10); EOSINOPHILS # (AUTO) 0.1 10^3/uL (0.0-0.3); EOSINOPHILS % (AUTO) 3 % (0-10); HEMATOCRIT 41 % (35-52); HEMOGLOBIN 13.3 G/DL (11.5-16.0); LYMPHOCYTES # (AUTO) 1.7 X 10^3 (1.0-4.0); LYMPHOCYTES % (AUTO) 32 % (12-44); MEAN CORPUSCULAR HEMOGLOBIN 31 PG (25-34); MEAN CORPUSCULAR HGB CONC 32 G/DL (32-36); MEAN CORPUSCULAR VOLUME 97 FL (80-99); MEAN PLATELET VOLUME 9.3 FL (7.4-10.4); MONOCYTES # (AUTO) 0.4 X 10^3 (0.0-1.0); MONOCYTES % (AUTO) 8 % (0-12); NEUTROPHILS # (AUTO) 2.9 X 10^3 (1.8-7.8); NEUTROPHILS % (AUTO) 56 % (42-75); PLATELET COUNT 274 10^3/uL (130-400); RED CELL DISTRIBUTION WIDTH 14.4 % (10.0-14.5); WHITE BLOOD COUNT 5.2 10^3/uL (4.3-11.0)
[2019-08-20 14:40] LABS: BUN/CREATININE RATIO 22; CALCIUM 8.7 MG/DL (8.5-10.1); CARBON DIOXIDE 26 MMOL/L (21-32); CHLORIDE 103 MMOL/L (98-107); CREATININE SERUM 0.73 MG/DL (0.60-1.30); GFR ESTIMATED > 60; GLUCOSE 92 MG/DL (70-105); POTASSIUM 4.2 MMOL/L (3.6-5.0); SODIUM 138 MMOL/L (135-145)
[2019-08-27 14:25] LABS: BASOPHILS % (AUTO) 1 % (0-10); EOSINOPHILS # (AUTO) 0.2 10^3/uL (0.0-0.3); EOSINOPHILS % (AUTO) 3 % (0-10); HEMATOCRIT 38 % (35-52); HEMOGLOBIN 12.3 G/DL (11.5-16.0); LYMPHOCYTES # (AUTO) 1.7 X 10^3 (1.0-4.0); LYMPHOCYTES % (AUTO) 38 % (12-44); MEAN CORPUSCULAR HEMOGLOBIN 31 PG (25-34); MEAN CORPUSCULAR HGB CONC 32 G/DL (32-36); MEAN CORPUSCULAR VOLUME 97 FL (80-99); MEAN PLATELET VOLUME 9.1 FL (7.4-10.4); MONOCYTES # (AUTO) 0.3 X 10^3 (0.0-1.0); MONOCYTES % (AUTO) 7 % (0-12); NEUTROPHILS # (AUTO) 2.2 X 10^3 (1.8-7.8); NEUTROPHILS % (AUTO) 50 % (42-75); PLATELET COUNT 321 10^3/uL (130-400); RED CELL DISTRIBUTION WIDTH 14.4 % (10.0-14.5); WHITE BLOOD COUNT 4.4 10^3/uL (4.3-11.0)
[2019-08-27 14:41] LABS: BUN/CREATININE RATIO 16; CALCIUM 8.7 MG/DL (8.5-10.1); CARBON DIOXIDE 27 MMOL/L (21-32); CHLORIDE 107 MMOL/L (98-107); CREATININE SERUM 0.74 MG/DL (0.60-1.30); GFR ESTIMATED > 60; GLUCOSE 94 MG/DL (70-105); SODIUM 141 MMOL/L (135-145)
[2019-09-03 11:32] LABS: BASOPHILS # (AUTO) 0.1 10^3/uL (0.0-0.1); BASOPHILS % (AUTO) 1 % (0-10); EOSINOPHILS # (AUTO) 0.1 10^3/uL (0.0-0.3); EOSINOPHILS % (AUTO) 2 % (0-10); HEMATOCRIT 41 % (35-52); HEMOGLOBIN 13.4 G/DL (11.5-16.0); LYMPHOCYTES # (AUTO) 1.3 X 10^3 (1.0-4.0); LYMPHOCYTES % (AUTO) 32 % (12-44); MEAN CORPUSCULAR HEMOGLOBIN 32 PG (25-34); MEAN CORPUSCULAR HGB CONC 33 G/DL (32-36); MEAN CORPUSCULAR VOLUME 98 FL (80-99); MEAN PLATELET VOLUME 9.5 FL (7.4-10.4); MONOCYTES # (AUTO) 0.4 X 10^3 (0.0-1.0); MONOCYTES % (AUTO) 9 % (0-12); NEUTROPHILS # (AUTO) 2.3 X 10^3 (1.8-7.8); NEUTROPHILS % (AUTO) 56 % (42-75); PLATELET COUNT 310 10^3/uL (130-400); RED CELL DISTRIBUTION WIDTH 15.1 % (10.0-14.5); WHITE BLOOD COUNT 4.1 10^3/uL (4.3-11.0)
[2019-09-03 11:52] LABS: BUN/CREATININE RATIO 17; CALCIUM 8.9 MG/DL (8.5-10.1); CARBON DIOXIDE 25 MMOL/L (21-32); CHLORIDE 107 MMOL/L (98-107); CREATININE SERUM 0.78 MG/DL (0.60-1.30); GFR ESTIMATED > 60; GLUCOSE 127 MG/DL (70-105); POTASSIUM 4.2 MMOL/L (3.6-5.0); SODIUM 142 MMOL/L (135-145)
[2019-09-10 14:47] LABS: BASOPHILS % (AUTO) 1 % (0-10); EOSINOPHILS # (AUTO) 0.1 10^3/uL (0.0-0.3); EOSINOPHILS % (AUTO) 1 % (0-10); HEMATOCRIT 41 % (35-52); HEMOGLOBIN 13.2 G/DL (11.5-16.0); LYMPHOCYTES # (AUTO) 1.5 X 10^3 (1.0-4.0); LYMPHOCYTES % (AUTO) 22 % (12-44); MEAN CORPUSCULAR HEMOGLOBIN 32 PG (25-34); MEAN CORPUSCULAR HGB CONC 33 G/DL (32-36); MEAN CORPUSCULAR VOLUME 98 FL (80-99); MEAN PLATELET VOLUME 9.2 FL (7.4-10.4); MONOCYTES # (AUTO) 1.1 X 10^3 (0.0-1.0); MONOCYTES % (AUTO) 16 % (0-12); NEUTROPHILS # (AUTO) 4.1 X 10^3 (1.8-7.8); NEUTROPHILS % (AUTO) 60 % (42-75); PLATELET COUNT 294 10^3/uL (130-400); RED CELL DISTRIBUTION WIDTH 15.6 % (10.0-14.5); WHITE BLOOD COUNT 6.8 10^3/uL (4.3-11.0)
[2019-09-10 15:18] LABS: ALANINE AMINOTRANSFERASE 29 U/L (0-55); ALKALINE PHOSPHATASE 77 U/L (40-136); BILIRUBIN,TOTAL 0.3 MG/DL (0.1-1.0); BUN/CREATININE RATIO 21; CARBON DIOXIDE 26 MMOL/L (21-32); CHLORIDE 105 MMOL/L (98-107); GFR ESTIMATED > 60; GLUCOSE 104 MG/DL (70-105); POTASSIUM 4.4 MMOL/L (3.6-5.0); SODIUM 141 MMOL/L (135-145); TOTAL PROTEIN 6.7 GM/DL (6.4-8.2)
[2019-09-17 15:09] LABS: BASOPHILS # (AUTO) 0.1 10^3/uL (0.0-0.1); BASOPHILS % (AUTO) 1 % (0-10); EOSINOPHILS # (AUTO) 0.1 10^3/uL (0.0-0.3); EOSINOPHILS % (AUTO) 2 % (0-10); HEMATOCRIT 38 % (35-52); HEMOGLOBIN 12.5 G/DL (11.5-16.0); LYMPHOCYTES # (AUTO) 1.3 X 10^3 (1.0-4.0); LYMPHOCYTES % (AUTO) 16 % (12-44); MEAN CORPUSCULAR HEMOGLOBIN 32 PG (25-34); MEAN CORPUSCULAR HGB CONC 33 G/DL (32-36); MEAN CORPUSCULAR VOLUME 97 FL (80-99); MEAN PLATELET VOLUME 9.3 FL (7.4-10.4); MONOCYTES # (AUTO) 0.6 X 10^3 (0.0-1.0); MONOCYTES % (AUTO) 8 % (0-12); NEUTROPHILS # (AUTO) 6.3 X 10^3 (1.8-7.8); NEUTROPHILS % (AUTO) 74 % (42-75); PLATELET COUNT 290 10^3/uL (130-400); RED CELL DISTRIBUTION WIDTH 15.3 % (10.0-14.5); WHITE BLOOD COUNT 8.5 10^3/uL (4.3-11.0)
[2019-09-17 15:26] LABS: BUN/CREATININE RATIO 11; CALCIUM 8.4 MG/DL (8.5-10.1); CARBON DIOXIDE 26 MMOL/L (21-32); CHLORIDE 105 MMOL/L (98-107); CREATININE SERUM 0.72 MG/DL (0.60-1.30); GFR ESTIMATED > 60; GLUCOSE 93 MG/DL (70-105); POTASSIUM 3.9 MMOL/L (3.6-5.0); SODIUM 139 MMOL/L (135-145)
[2019-09-24 14:54] LABS: BASOPHILS # (AUTO) 0.1 10^3/uL (0.0-0.1); BASOPHILS % (AUTO) 2 % (0-10); EOSINOPHILS # (AUTO) 0.2 10^3/uL (0.0-0.3); EOSINOPHILS % (AUTO) 4 % (0-10); HEMATOCRIT 37 % (35-52); HEMOGLOBIN 12.3 G/DL (11.5-16.0); LYMPHOCYTES # (AUTO) 1.5 X 10^3 (1.0-4.0); LYMPHOCYTES % (AUTO) 29 % (12-44); MEAN CORPUSCULAR HEMOGLOBIN 32 PG (25-34); MEAN CORPUSCULAR HGB CONC 33 G/DL (32-36); MEAN CORPUSCULAR VOLUME 98 FL (80-99); MEAN PLATELET VOLUME 9.4 FL (7.4-10.4); MONOCYTES # (AUTO) 0.6 X 10^3 (0.0-1.0); MONOCYTES % (AUTO) 11 % (0-12); NEUTROPHILS # (AUTO) 2.9 X 10^3 (1.8-7.8); NEUTROPHILS % (AUTO) 55 % (42-75); PLATELET COUNT 391 10^3/uL (130-400); RED CELL DISTRIBUTION WIDTH 15.8 % (10.0-14.5); WHITE BLOOD COUNT 5.3 10^3/uL (4.3-11.0)
[2019-09-24 15:14] LABS: BUN/CREATININE RATIO 20; CALCIUM 9.6 MG/DL (8.5-10.1); CARBON DIOXIDE 27 MMOL/L (21-32); CHLORIDE 104 MMOL/L (98-107); CREATININE SERUM 0.81 MG/DL (0.60-1.30); GFR ESTIMATED > 60; GLUCOSE 110 MG/DL (70-105); SODIUM 141 MMOL/L (135-145)
[~2019-10-01] VITALS: Ht 165.1 cm; Wt 80.7 kg
[~2019-10-01 12:26] MED LIST changes: -CATHETER FLUSH 10 ML SYR IV PRN; -HOLD METFORMIN - RECEIVED CONTRAST 20 ML VIAL IV SCH; -IOHEXOL 350 MG/ML 100 ML (OMNIPAQUE 350) VIAL IV ONE; -NS 100 ML (IVPB) BAG IV ONE; +NS IV 1000 ML (CANCER CTR) IV SCH; +ONDANSETRON MDV (CANCER CENTER 16 MG, DEXAMETHASONE INJECTION 10 MG in NS (IVPB) CANCER... IV SCH; +PACLitaxel PROTEIN 170 MG in EMPTY IV BAG (PVC) CANCER CTR 1 EA IV SCH; +ZOLEDRONIC ACID (CANCER CTR) 4 MG in NS (IVPB) CANCER CENTER 100 ML IV SCH
[2019-10-01 12:41] LABS: BASOPHILS # (AUTO) 0.1 10^3/uL (0.0-0.1); BASOPHILS % (AUTO) 2 % (0-10); EOSINOPHILS # (AUTO) 0.1 10^3/uL (0.0-0.3); EOSINOPHILS % (AUTO) 3 % (0-10); HEMATOCRIT 38 % (35-52); HEMOGLOBIN 12.3 G/DL (11.5-16.0); LYMPHOCYTES # (AUTO) 1.5 X 10^3 (1.0-4.0); LYMPHOCYTES % (AUTO) 32 % (12-44); MEAN CORPUSCULAR HEMOGLOBIN 32 PG (25-34); MEAN CORPUSCULAR HGB CONC 32 G/DL (32-36); MEAN CORPUSCULAR VOLUME 100 FL (80-99); MEAN PLATELET VOLUME 9.6 FL (7.4-10.4); MONOCYTES # (AUTO) 0.4 X 10^3 (0.0-1.0); MONOCYTES % (AUTO) 8 % (0-12); NEUTROPHILS # (AUTO) 2.5 X 10^3 (1.8-7.8); NEUTROPHILS % (AUTO) 55 % (42-75); PLATELET COUNT 322 10^3/uL (130-400); WHITE BLOOD COUNT 4.6 10^3/uL (4.3-11.0)
[2019-10-01 12:57] LABS: BUN/CREATININE RATIO 17; CALCIUM 8.3 MG/DL (8.5-10.1); CARBON DIOXIDE 27 MMOL/L (21-32); CHLORIDE 107 MMOL/L (98-107); CREATININE SERUM 0.78 MG/DL (0.60-1.30); GFR ESTIMATED > 60; GLUCOSE 116 MG/DL (70-105); POTASSIUM 4.6 MMOL/L (3.6-5.0); SODIUM 141 MMOL/L (135-145)
== END 2019-10-08 | disposition home or self-care (01) ==
LOC: ONC 12:26
PROVIDERS: ATTEND Internal Medicine Hematology & Oncology
DX: Z51.0 Encounter for antineoplastic radiation therapy (principal); C50.919 Malignant neoplasm of unspecified site of unspecified female breast; C79.51 Secondary malignant neoplasm of bone
CPT/HCPCS: 36591; 77290; 77295; 77300; 77334; 77336; 77417; 80048; 80053; 82306; 85025; 96367; 96375; 96413; 99204; 99213; 99214

== ENCOUNTER → 2019-10-31 | Outpatient (CLI) | payer MEDICAID ==
[~2019-10-31] MED LIST changes: +BARIUM SUSPENSION 2.1% (VANILLA SILQ) 450 ML PO ONE; +CATHETER FLUSH 10 ML SYR IV PRN; +HOLD METFORMIN - RECEIVED CONTRAST 20 ML VIAL IV SCH; +IOHEXOL 350 MG/ML 100 ML (OMNIPAQUE 350) VIAL IV ONE; +NS 100 ML (IVPB) BAG IV ONE; -NS IV 1000 ML (CANCER CTR) IV SCH; -ONDANSETRON MDV (CANCER CENTER 16 MG, DEXAMETHASONE INJECTION 10 MG in NS (IVPB) CANCER... IV SCH; -PACLitaxel PROTEIN 170 MG in EMPTY IV BAG (PVC) CANCER CTR 1 EA IV SCH; -ZOLEDRONIC ACID (CANCER CTR) 4 MG in NS (IVPB) CANCER CENTER 100 ML IV SCH
--- NOTE | 2019-10-31 14:11 | Diagnostic Imaging Report ---
EXAMINATION: CT chest with contrast, CT abdomen with and without contrast. TECHNIQUE: Precontrast acquisitions were acquired through the abdomen. Multiple contiguous axial images were obtained through the chest and abdomen after administration of intravenous contrast. All CT scans use one or more of the following dose optimizing techniques: automated exposure control, MA and/or KvP adjustment based on a patient size and exam type, or iterative reconstruction. HISTORY: Breast cancer. COMPARISON: 09/10/2019, 07/12/2019. FINDINGS: There is no edema or pneumonia. No pleural effusion. No pneumothorax. There is a stable right upper lobe nodule measuring 16 x 13 mm, unchanged from prior study. There is a stable right lower lobe nodule measuring 7 mm. There is a stable 6 mm left lower lobe. No new nodules are seen. There has been a right mastectomy and right axillary lymph node dissection. Left port catheter tip terminates in the superior vena cava. Heart size is normal. There are no coronary artery calcifications. No pericardial effusion. Aorta is normal in caliber. There is no axillary or supraclavicular lymphadenopathy. 12 mm right upper paratracheal lymph node is stable. 7 mm segment two lesion in the liver is unchanged. No new liver lesions are seen. 12 mm segment six lesion is also stable. There is no biliary ductal dilation. Gallbladder is normal. Pancreas is normal. Spleen is normal. Adrenal glands are normal. The kidneys are normal. There is no hydronephrosis. Visualized bowel is normal in caliber without obstruction or inflammation. No free fluid or air. No abdominal lymphadenopathy. Aorta is normal in caliber without aneurysm. Sternal lesion is unchanged. Right third rib lesion is also unchanged. There is a healing pathologic fracture of the right fourth rib. IMPRESSION: 1. Stable pulmonary and hepatic metastatic disease. Stable mediastinal lymphadenopathy and osseous lesions. Dictated by: Dictated on workstation # [id number]
--- NOTE | 2019-10-31 17:10 | Diagnostic Imaging Report ---
INDICATION: Breast cancer. COMPARISON: Nuclear medicine bone scan of 07/12/2019. CT chest, abdomen, and pelvis from 10/31/2019. TECHNIQUE: Anterior and posterior scintigraphic images of the whole body were obtained 3 hours after the intravenous injection of 27.0 mCi of Tc-99m MDP. FINDINGS: Abnormal radiotracer uptake involving anterior right third rib is unchanged. Abnormal uptake in the right anterior sixth and seventh rib persists and is associated with healing fractures seen on CT. Abnormal avid tracer activity in the sternum, corresponding to blastic sclerotic lesions. No abnormal radiotracer activity in the calvarium. No new left-sided rib lesions. No appendicular skeletal abnormal radiotracer artery. IMPRESSION: 1. The right-sided rib and sternal lesions are all stable since 07/29/2019. Dictated by: Dictated on workstation # [id number]
== END ==
LOC: CARD 11:35
PROVIDERS: ATTEND Internal Medicine Hematology & Oncology
DX: C50.919 Malignant neoplasm of unspecified site of unspecified female breast (principal); C78.00 Secondary malignant neoplasm of unspecified lung; C79.51 Secondary malignant neoplasm of bone
CPT/HCPCS: 71260; 74170; 78306; A9503

== ENCOUNTER → 2019-12-17 | Outpatient (CLI) | payer MEDICAID ==
[~2019-12-17] MED LIST changes: -BARIUM SUSPENSION 2.1% (VANILLA SILQ) 450 ML PO ONE; -CATHETER FLUSH 10 ML SYR IV PRN; -HOLD METFORMIN - RECEIVED CONTRAST 20 ML VIAL IV SCH; -IOHEXOL 350 MG/ML 100 ML (OMNIPAQUE 350) VIAL IV ONE; -NS 100 ML (IVPB) BAG IV ONE; +RT-ALBUTEROL SULF 2.5 MG/3 ML PRE-MIX VIAL INH ONE
== END ==
LOC: RT 10:10
PROVIDERS: ATTEND Nurse Practitioner Family
DX: J44.9 Chronic obstructive pulmonary disease, unspecified (principal); C50.919 Malignant neoplasm of unspecified site of unspecified female breast; R91.8 Other nonspecific abnormal finding of lung field
CPT/HCPCS: 94060; 94726; 94729

== ENCOUNTER → 2019-12-31 | Outpatient (CLI) | payer MEDICAID ==
[~2019-12-31] MED LIST changes: -RT-ALBUTEROL SULF 2.5 MG/3 ML PRE-MIX VIAL INH ONE
--- NOTE | 2019-12-31 18:39 | Diagnostic Imaging Report ---
HISTORY: Left foot pain and swelling. History of bone metastases. COMPARISON: None. TECHNIQUE: Three views of the left foot. FINDINGS: There is moderate soft tissue swelling about the left foot. Alignment appears normal. Joint spaces are preserved. No cortical erosions are seen. An os peroneum is noted. No sclerotic or lytic lesions are identified in the left foot. IMPRESSION: 1. Soft tissue swelling about the left foot with no acute osseous abnormality seen. Dictated by: Dictated on workstation # [id number]
== END ==
LOC: RAD 15:26
PROVIDERS: ATTEND Nurse Practitioner Adult Health
DX: M79.89 Other specified soft tissue disorders (principal); M79.672 Pain in left foot; C50.919 Malignant neoplasm of unspecified site of unspecified female breast; C78.00 Secondary malignant neoplasm of unspecified lung; C78.7 Secondary malignant neoplasm of liver and intrahepatic bile duct; Z85.830 Personal history of malignant neoplasm of bone
CPT/HCPCS: 73630

== ENCOUNTER → 2020-01-07 | Outpatient (RCR) | payer MEDICAID ==
[2019-10-09 10:00] LABS: BASOPHILS # (AUTO) 0.1 10^3/uL (0.0-0.1); BASOPHILS % (AUTO) 1 % (0-10); EOSINOPHILS # (AUTO) 0.1 10^3/uL (0.0-0.3); EOSINOPHILS % (AUTO) 2 % (0-10); HEMATOCRIT 40 % (35-52); HEMOGLOBIN 13.2 G/DL (11.5-16.0); LYMPHOCYTES # (AUTO) 1.5 X 10^3 (1.0-4.0); LYMPHOCYTES % (AUTO) 21 % (12-44); MEAN CORPUSCULAR HEMOGLOBIN 33 PG (25-34); MEAN CORPUSCULAR HGB CONC 33 G/DL (32-36); MEAN CORPUSCULAR VOLUME 100 FL (80-99); MONOCYTES % (AUTO) 15 % (0-12); NEUTROPHILS # (AUTO) 4.2 X 10^3 (1.8-7.8); NEUTROPHILS % (AUTO) 61 % (42-75); PLATELET COUNT 308 10^3/uL (130-400); WHITE BLOOD COUNT 6.9 10^3/uL (4.3-11.0)
[2019-10-09 10:20] LABS: ALANINE AMINOTRANSFERASE 35 U/L (0-55); ALKALINE PHOSPHATASE 74 U/L (40-136); BILIRUBIN,TOTAL 0.3 MG/DL (0.1-1.0); BUN/CREATININE RATIO 13; CALCIUM 8.8 MG/DL (8.5-10.1); CARBON DIOXIDE 24 MMOL/L (21-32); CHLORIDE 108 MMOL/L (98-107); CREATININE SERUM 0.78 MG/DL (0.60-1.30); GFR ESTIMATED > 60; GLUCOSE 95 MG/DL (70-105); POTASSIUM 4.3 MMOL/L (3.6-5.0); SODIUM 143 MMOL/L (135-145); TOTAL PROTEIN 6.8 GM/DL (6.4-8.2)
[2019-10-15 13:58] LABS: BASOPHILS # (AUTO) 0.1 10^3/uL (0.0-0.1); BASOPHILS % (AUTO) 1 % (0-10); EOSINOPHILS # (AUTO) 0.1 10^3/uL (0.0-0.3); EOSINOPHILS % (AUTO) 2 % (0-10); HEMATOCRIT 38 % (35-52); HEMOGLOBIN 12.7 G/DL (11.5-16.0); LYMPHOCYTES # (AUTO) 1.5 X 10^3 (1.0-4.0); LYMPHOCYTES % (AUTO) 22 % (12-44); MEAN CORPUSCULAR HEMOGLOBIN 33 PG (25-34); MEAN CORPUSCULAR HGB CONC 34 G/DL (32-36); MEAN CORPUSCULAR VOLUME 99 FL (80-99); MEAN PLATELET VOLUME 9.7 FL (7.4-10.4); MONOCYTES # (AUTO) 0.7 X 10^3 (0.0-1.0); MONOCYTES % (AUTO) 10 % (0-12); NEUTROPHILS # (AUTO) 4.5 X 10^3 (1.8-7.8); NEUTROPHILS % (AUTO) 65 % (42-75); PLATELET COUNT 299 10^3/uL (130-400); WHITE BLOOD COUNT 6.9 10^3/uL (4.3-11.0)
[2019-10-15 14:21] LABS: BUN/CREATININE RATIO 14; CALCIUM 8.7 MG/DL (8.5-10.1); CARBON DIOXIDE 25 MMOL/L (21-32); CHLORIDE 106 MMOL/L (98-107); CREATININE SERUM 0.79 MG/DL (0.60-1.30); GFR ESTIMATED > 60; GLUCOSE 107 MG/DL (70-105); POTASSIUM 4.2 MMOL/L (3.6-5.0); SODIUM 141 MMOL/L (135-145)
[2019-10-22 14:09] LABS: BASOPHILS # (AUTO) 0.1 10^3/uL (0.0-0.1); BASOPHILS % (AUTO) 1 % (0-10); EOSINOPHILS # (AUTO) 0.2 10^3/uL (0.0-0.3); EOSINOPHILS % (AUTO) 2 % (0-10); HEMATOCRIT 38 % (35-52); HEMOGLOBIN 12.8 G/DL (11.5-16.0); LYMPHOCYTES # (AUTO) 1.9 X 10^3 (1.0-4.0); LYMPHOCYTES % (AUTO) 29 % (12-44); MEAN CORPUSCULAR HEMOGLOBIN 34 PG (25-34); MEAN CORPUSCULAR HGB CONC 34 G/DL (32-36); MEAN CORPUSCULAR VOLUME 101 FL (80-99); MEAN PLATELET VOLUME 9.3 FL (7.4-10.4); MONOCYTES # (AUTO) 0.5 X 10^3 (0.0-1.0); MONOCYTES % (AUTO) 7 % (0-12); NEUTROPHILS % (AUTO) 60 % (42-75); PLATELET COUNT 326 10^3/uL (130-400); WHITE BLOOD COUNT 6.6 10^3/uL (4.3-11.0)
[2019-10-22 14:40] LABS: BUN/CREATININE RATIO 11; CALCIUM 8.5 MG/DL (8.5-10.1); CARBON DIOXIDE 25 MMOL/L (21-32); CHLORIDE 109 MMOL/L (98-107); CREATININE SERUM 0.76 MG/DL (0.60-1.30); GFR ESTIMATED > 60; GLUCOSE 92 MG/DL (70-105); SODIUM 142 MMOL/L (135-145)
[2019-10-29 10:00] LABS: BASOPHILS # (AUTO) 0.1 10^3/uL (0.0-0.1); BASOPHILS % (AUTO) 1 % (0-10); EOSINOPHILS # (AUTO) 0.1 10^3/uL (0.0-0.3); EOSINOPHILS % (AUTO) 2 % (0-10); HEMATOCRIT 39 % (35-52); HEMOGLOBIN 12.6 G/DL (11.5-16.0); LYMPHOCYTES # (AUTO) 1.2 X 10^3 (1.0-4.0); LYMPHOCYTES % (AUTO) 22 % (12-44); MEAN CORPUSCULAR HEMOGLOBIN 33 PG (25-34); MEAN CORPUSCULAR HGB CONC 32 G/DL (32-36); MEAN CORPUSCULAR VOLUME 101 FL (80-99); MEAN PLATELET VOLUME 9.6 FL (7.4-10.4); MONOCYTES # (AUTO) 0.6 X 10^3 (0.0-1.0); MONOCYTES % (AUTO) 10 % (0-12); NEUTROPHILS # (AUTO) 3.5 X 10^3 (1.8-7.8); NEUTROPHILS % (AUTO) 65 % (42-75); PLATELET COUNT 339 10^3/uL (130-400); WHITE BLOOD COUNT 5.4 10^3/uL (4.3-11.0)
[2019-10-29 10:14] LABS: BUN/CREATININE RATIO 13; CALCIUM 8.7 MG/DL (8.5-10.1); CARBON DIOXIDE 25 MMOL/L (21-32); CHLORIDE 109 MMOL/L (98-107); GFR ESTIMATED > 60; GLUCOSE 97 MG/DL (70-105); POTASSIUM 4.7 MMOL/L (3.6-5.0); SODIUM 141 MMOL/L (135-145)
[2019-11-05 14:37] LABS: BASOPHILS # (AUTO) 0.1 10^3/uL (0.0-0.1); BASOPHILS % (AUTO) 1 % (0-10); EOSINOPHILS # (AUTO) 0.1 10^3/uL (0.0-0.3); EOSINOPHILS % (AUTO) 2 % (0-10); HEMATOCRIT 40 % (35-52); LYMPHOCYTES # (AUTO) 1.9 X 10^3 (1.0-4.0); LYMPHOCYTES % (AUTO) 24 % (12-44); MEAN CORPUSCULAR HEMOGLOBIN 33 PG (25-34); MEAN CORPUSCULAR HGB CONC 33 G/DL (32-36); MEAN CORPUSCULAR VOLUME 102 FL (80-99); MEAN PLATELET VOLUME 9.4 FL (7.4-10.4); MONOCYTES % (AUTO) 13 % (0-12); NEUTROPHILS # (AUTO) 4.6 X 10^3 (1.8-7.8); NEUTROPHILS % (AUTO) 60 % (42-75); PLATELET COUNT 300 10^3/uL (130-400); WHITE BLOOD COUNT 7.7 10^3/uL (4.3-11.0)
[2019-11-05 15:01] LABS: ALANINE AMINOTRANSFERASE 24 U/L (0-55); ALBUMIN 4.1 GM/DL (3.2-4.5); ALKALINE PHOSPHATASE 74 U/L (40-136); BILIRUBIN,TOTAL 0.4 MG/DL (0.1-1.0); BUN/CREATININE RATIO 14; CALCIUM 9.2 MG/DL (8.5-10.1); CARBON DIOXIDE 26 MMOL/L (21-32); CHLORIDE 109 MMOL/L (98-107); CREATININE SERUM 0.84 MG/DL (0.60-1.30); GFR ESTIMATED > 60; GLUCOSE 88 MG/DL (70-105); POTASSIUM 4.6 MMOL/L (3.6-5.0); SODIUM 143 MMOL/L (135-145); TOTAL PROTEIN 6.6 GM/DL (6.4-8.2)
[2019-11-12 13:34] LABS: BASOPHILS # (AUTO) 0.1 10^3/uL (0.0-0.1); BASOPHILS % (AUTO) 2 % (0-10); EOSINOPHILS # (AUTO) 0.2 10^3/uL (0.0-0.3); EOSINOPHILS % (AUTO) 2 % (0-10); HEMATOCRIT 37 % (35-52); HEMOGLOBIN 12.3 G/DL (11.5-16.0); LYMPHOCYTES # (AUTO) 1.9 X 10^3 (1.0-4.0); LYMPHOCYTES % (AUTO) 29 % (12-44); MEAN CORPUSCULAR HEMOGLOBIN 33 PG (25-34); MEAN CORPUSCULAR HGB CONC 33 G/DL (32-36); MEAN CORPUSCULAR VOLUME 101 FL (80-99); MEAN PLATELET VOLUME 9.7 FL (7.4-10.4); MONOCYTES # (AUTO) 0.6 X 10^3 (0.0-1.0); MONOCYTES % (AUTO) 9 % (0-12); NEUTROPHILS # (AUTO) 3.8 X 10^3 (1.8-7.8); NEUTROPHILS % (AUTO) 58 % (42-75); PLATELET COUNT 289 10^3/uL (130-400); WHITE BLOOD COUNT 6.6 10^3/uL (4.3-11.0)
[2019-11-12 13:54] LABS: BUN/CREATININE RATIO 14; CALCIUM 8.3 MG/DL (8.5-10.1); CARBON DIOXIDE 23 MMOL/L (21-32); CHLORIDE 110 MMOL/L (98-107); CREATININE SERUM 0.78 MG/DL (0.60-1.30); GFR ESTIMATED > 60; GLUCOSE 145 MG/DL (70-105); POTASSIUM 3.7 MMOL/L (3.6-5.0); SODIUM 143 MMOL/L (135-145)
[2019-11-19 13:57] LABS: BASOPHILS # (AUTO) 0.1 10^3/uL (0.0-0.1); BASOPHILS % (AUTO) 1 % (0-10); EOSINOPHILS # (AUTO) 0.1 10^3/uL (0.0-0.3); EOSINOPHILS % (AUTO) 3 % (0-10); HEMATOCRIT 36 % (35-52); HEMOGLOBIN 11.8 G/DL (11.5-16.0); LYMPHOCYTES # (AUTO) 1.6 X 10^3 (1.0-4.0); LYMPHOCYTES % (AUTO) 36 % (12-44); MEAN CORPUSCULAR HEMOGLOBIN 34 PG (25-34); MEAN CORPUSCULAR HGB CONC 33 G/DL (32-36); MEAN CORPUSCULAR VOLUME 103 FL (80-99); MEAN PLATELET VOLUME 9.6 FL (7.4-10.4); MONOCYTES # (AUTO) 0.3 X 10^3 (0.0-1.0); MONOCYTES % (AUTO) 8 % (0-12); NEUTROPHILS # (AUTO) 2.3 X 10^3 (1.8-7.8); NEUTROPHILS % (AUTO) 52 % (42-75); PLATELET COUNT 298 10^3/uL (130-400); WHITE BLOOD COUNT 4.3 10^3/uL (4.3-11.0)
[2019-11-19 14:15] LABS: BUN/CREATININE RATIO 14; CARBON DIOXIDE 24 MMOL/L (21-32); CHLORIDE 110 MMOL/L (98-107); CREATININE SERUM 0.83 MG/DL (0.60-1.30); GFR ESTIMATED > 60; GLUCOSE 150 MG/DL (70-105); POTASSIUM 3.9 MMOL/L (3.6-5.0); SODIUM 142 MMOL/L (135-145)
[2019-11-26 08:25] LABS: BASOPHILS # (AUTO) 0.1 10^3/uL (0.0-0.1); BASOPHILS % (AUTO) 2 % (0-10); EOSINOPHILS # (AUTO) 0.1 10^3/uL (0.0-0.3); EOSINOPHILS % (AUTO) 2 % (0-10); HEMATOCRIT 37 % (35-52); HEMOGLOBIN 12.1 G/DL (11.5-16.0); LYMPHOCYTES # (AUTO) 1.5 X 10^3 (1.0-4.0); LYMPHOCYTES % (AUTO) 27 % (12-44); MEAN CORPUSCULAR HEMOGLOBIN 33 PG (25-34); MEAN CORPUSCULAR HGB CONC 32 G/DL (32-36); MEAN CORPUSCULAR VOLUME 102 FL (80-99); MEAN PLATELET VOLUME 9.5 FL (7.4-10.4); MONOCYTES # (AUTO) 0.5 X 10^3 (0.0-1.0); MONOCYTES % (AUTO) 8 % (0-12); NEUTROPHILS # (AUTO) 3.3 X 10^3 (1.8-7.8); NEUTROPHILS % (AUTO) 61 % (42-75); PLATELET COUNT 298 10^3/uL (130-400); WHITE BLOOD COUNT 5.4 10^3/uL (4.3-11.0)
[2019-11-26 08:42] LABS: BUN/CREATININE RATIO 20; CALCIUM 8.7 MG/DL (8.5-10.1); CARBON DIOXIDE 23 MMOL/L (21-32); CHLORIDE 110 MMOL/L (98-107); CREATININE SERUM 0.75 MG/DL (0.60-1.30); GFR ESTIMATED > 60; GLUCOSE 112 MG/DL (70-105); POTASSIUM 4.2 MMOL/L (3.6-5.0); SODIUM 140 MMOL/L (135-145)
[2019-12-03 14:16] LABS: BASOPHILS # (AUTO) 0.1 10^3/uL (0.0-0.1); BASOPHILS % (AUTO) 2 % (0-10); EOSINOPHILS # (AUTO) 0.1 10^3/uL (0.0-0.3); EOSINOPHILS % (AUTO) 2 % (0-10); HEMATOCRIT 37 % (35-52); HEMOGLOBIN 11.8 G/DL (11.5-16.0); LYMPHOCYTES # (AUTO) 1.6 X 10^3 (1.0-4.0); LYMPHOCYTES % (AUTO) 24 % (12-44); MEAN CORPUSCULAR HEMOGLOBIN 33 PG (25-34); MEAN CORPUSCULAR HGB CONC 32 G/DL (32-36); MEAN CORPUSCULAR VOLUME 103 FL (80-99); MEAN PLATELET VOLUME 9.3 FL (7.4-10.4); MONOCYTES # (AUTO) 0.9 X 10^3 (0.0-1.0); MONOCYTES % (AUTO) 14 % (0-12); NEUTROPHILS # (AUTO) 3.8 X 10^3 (1.8-7.8); NEUTROPHILS % (AUTO) 59 % (42-75); PLATELET COUNT 298 10^3/uL (130-400); WHITE BLOOD COUNT 6.5 10^3/uL (4.3-11.0)
[2019-12-03 14:39] LABS: ALANINE AMINOTRANSFERASE 19 U/L (0-55); ALBUMIN 3.9 GM/DL (3.2-4.5); ALKALINE PHOSPHATASE 62 U/L (40-136); BILIRUBIN,TOTAL 0.3 MG/DL (0.1-1.0); BUN/CREATININE RATIO 13; CALCIUM 9.3 MG/DL (8.5-10.1); CARBON DIOXIDE 29 MMOL/L (21-32); CHLORIDE 108 MMOL/L (98-107); CREATININE SERUM 0.88 MG/DL (0.60-1.30); GFR ESTIMATED > 60; GLUCOSE 124 MG/DL (70-105); POTASSIUM 4.1 MMOL/L (3.6-5.0); SODIUM 144 MMOL/L (135-145); TOTAL PROTEIN 6.4 GM/DL (6.4-8.2)
[2019-12-10 13:26] LABS: BASOPHILS # (AUTO) 0.1 10^3/uL (0.0-0.1); BASOPHILS % (AUTO) 1 % (0-10); EOSINOPHILS # (AUTO) 0.2 10^3/uL (0.0-0.3); EOSINOPHILS % (AUTO) 2 % (0-10); HEMATOCRIT 41 % (35-52); HEMOGLOBIN 13.2 G/DL (11.5-16.0); LYMPHOCYTES # (AUTO) 2.3 X 10^3 (1.0-4.0); LYMPHOCYTES % (AUTO) 27 % (12-44); MEAN CORPUSCULAR HEMOGLOBIN 33 PG (25-34); MEAN CORPUSCULAR HGB CONC 33 G/DL (32-36); MEAN CORPUSCULAR VOLUME 102 FL (80-99); MONOCYTES # (AUTO) 0.7 X 10^3 (0.0-1.0); MONOCYTES % (AUTO) 8 % (0-12); NEUTROPHILS # (AUTO) 5.4 X 10^3 (1.8-7.8); NEUTROPHILS % (AUTO) 63 % (42-75); PLATELET COUNT 283 10^3/uL (130-400); WHITE BLOOD COUNT 8.7 10^3/uL (4.3-11.0)
[2019-12-10 13:47] LABS: BUN/CREATININE RATIO 16; CARBON DIOXIDE 27 MMOL/L (21-32); CHLORIDE 105 MMOL/L (98-107); CREATININE SERUM 0.82 MG/DL (0.60-1.30); GFR ESTIMATED > 60; GLUCOSE 126 MG/DL (70-105); POTASSIUM 3.8 MMOL/L (3.6-5.0); SODIUM 141 MMOL/L (135-145)
[2019-12-31 15:48] LABS: BASOPHILS # (AUTO) 0.1 10^3/uL (0.0-0.1); BASOPHILS % (AUTO) 1 % (0-10); EOSINOPHILS # (AUTO) 0.2 10^3/uL (0.0-0.3); EOSINOPHILS % (AUTO) 3 % (0-10); HEMATOCRIT 39 % (35-52); HEMOGLOBIN 12.4 g/dL (11.5-16.0); LYMPHOCYTES % (AUTO) 32 % (12-44); MEAN CORPUSCULAR HEMOGLOBIN 32 pg (25-34); MEAN CORPUSCULAR HGB CONC 32 g/dL (32-36); MEAN CORPUSCULAR VOLUME 102 fL (80-99); MEAN PLATELET VOLUME 9.4 fL (9.0-12.2); MONOCYTES # (AUTO) 0.5 10^3/uL (0.0-1.0); MONOCYTES % (AUTO) 9 % (0-12); NEUTROPHILS # (AUTO) 3.3 10^3/uL (1.8-7.8); NEUTROPHILS % (AUTO) 53 % (42-75); PLATELET COUNT 266 10^3/uL (130-400); WHITE BLOOD COUNT 6.3 10^3/uL (4.3-11.0)
[2019-12-31 16:01] LABS: ALANINE AMINOTRANSFERASE 12 U/L (0-55); ALBUMIN 3.7 GM/DL (3.2-4.5); ALKALINE PHOSPHATASE 65 U/L (40-136); BILIRUBIN,TOTAL 0.3 MG/DL (0.1-1.0); BUN/CREATININE RATIO 11; CALCIUM 8.5 MG/DL (8.5-10.1); CARBON DIOXIDE 26 MMOL/L (21-32); CHLORIDE 108 MMOL/L (98-107); GFR ESTIMATED > 60; GLUCOSE 94 MG/DL (70-105); POTASSIUM 4.2 MMOL/L (3.6-5.0); SODIUM 144 MMOL/L (135-145); TOTAL PROTEIN 6.1 GM/DL (6.4-8.2); URIC ACID 4.2 MG/DL (2.6-7.2)
[~2020-01-07] MED LIST changes: +ALTEPLASE 2 MG (CATHFLO) CANCER CENTER IV ONE; +NS IV 1000 ML (CANCER CTR) IV SCH; +PACLitaxel PROTEIN 150 MG in EMPTY IV BAG (PVC) CANCER CTR 1 EA IV SCH; +PACLitaxel PROTEIN 170 MG in EMPTY IV BAG (PVC) CANCER CTR 1 EA IV SCH; +ZOLEDRONIC ACID (CANCER CTR) 4 MG in NS (IVPB) CANCER CENTER 100 ML IV SCH
[2020-01-07 09:20] LABS: BASOPHILS % (AUTO) 1 % (0-10); EOSINOPHILS # (AUTO) 0.1 10^3/uL (0.0-0.3); EOSINOPHILS % (AUTO) 1 % (0-10); HEMATOCRIT 44 % (35-52); HEMOGLOBIN 14.1 g/dL (11.5-16.0); LYMPHOCYTES # (AUTO) 1.5 10^3/uL (1.0-4.0); LYMPHOCYTES % (AUTO) 31 % (12-44); MEAN CORPUSCULAR HEMOGLOBIN 33 pg (25-34); MEAN CORPUSCULAR HGB CONC 32 g/dL (32-36); MEAN CORPUSCULAR VOLUME 103 fL (80-99); MEAN PLATELET VOLUME 9.1 fL (9.0-12.2); MONOCYTES # (AUTO) 0.2 10^3/uL (0.0-1.0); MONOCYTES % (AUTO) 4 % (0-12); NEUTROPHILS # (AUTO) 3.1 10^3/uL (1.8-7.8); NEUTROPHILS % (AUTO) 63 % (42-75); PLATELET COUNT 284 10^3/uL (130-400); WHITE BLOOD COUNT 4.9 10^3/uL (4.3-11.0)
[2020-01-07 09:35] LABS: CALCIUM 8.6 MG/DL (8.5-10.1); CREATININE SERUM 1.07 MG/DL (0.60-1.30); POTASSIUM 4.5 MMOL/L (3.6-5.0)
== END | disposition home or self-care (01) ==
LOC: ONC 10-09 09:39
PROVIDERS: ATTEND Internal Medicine Hematology & Oncology
DX: C50.919 Malignant neoplasm of unspecified site of unspecified female breast (principal); C79.51 Secondary malignant neoplasm of bone
CPT/HCPCS: 80053; 85025; 96367; 96375; 96413; G0463; 36591; 36593; 80048; 82306; 84550; 86300; 96365

== ENCOUNTER 2020-04-07 10:20 | Outpatient (RCR) | payer MEDICAID ==
[2020-01-14 09:00] LABS: BASOPHILS % (AUTO) 1 % (0-10); EOSINOPHILS % (AUTO) 1 % (0-10); HEMATOCRIT 40 % (35-52); HEMOGLOBIN 13.2 g/dL (11.5-16.0); LYMPHOCYTES # (AUTO) 1.4 10^3/uL (1.0-4.0); LYMPHOCYTES % (AUTO) 42 % (12-44); MEAN CORPUSCULAR HEMOGLOBIN 33 pg (25-34); MEAN CORPUSCULAR HGB CONC 33 g/dL (32-36); MEAN CORPUSCULAR VOLUME 100 fL (80-99); MEAN PLATELET VOLUME 9.2 fL (9.0-12.2); MONOCYTES # (AUTO) 0.2 10^3/uL (0.0-1.0); MONOCYTES % (AUTO) 6 % (0-12); NEUTROPHILS # (AUTO) 1.6 10^3/uL (1.8-7.8); NEUTROPHILS % (AUTO) 50 % (42-75); PLATELET COUNT 160 10^3/uL (130-400); WHITE BLOOD COUNT 3.3 10^3/uL (4.3-11.0)
[2020-01-14 09:15] LABS: BUN/CREATININE RATIO 18; CALCIUM 8.4 MG/DL (8.5-10.1); CARBON DIOXIDE 19 MMOL/L (21-32); CHLORIDE 109 MMOL/L (98-107); CREATININE SERUM 0.85 MG/DL (0.60-1.30); GFR ESTIMATED > 60; GLUCOSE 104 MG/DL (70-105); POTASSIUM 3.9 MMOL/L (3.6-5.0); SODIUM 140 MMOL/L (135-145)
[2020-01-21 09:34] LABS: BASOPHILS # (AUTO) 0.1 10^3/uL (0.0-0.1); BASOPHILS % (AUTO) 2 % (0-10); EOSINOPHILS % (AUTO) 2 % (0-10); HEMATOCRIT 42 % (35-52); HEMOGLOBIN 13.5 g/dL (11.5-16.0); LYMPHOCYTES # (AUTO) 1.1 10^3/uL (1.0-4.0); LYMPHOCYTES % (AUTO) 41 % (12-44); MEAN CORPUSCULAR HEMOGLOBIN 33 pg (25-34); MEAN CORPUSCULAR HGB CONC 32 g/dL (32-36); MEAN CORPUSCULAR VOLUME 103 fL (80-99); MEAN PLATELET VOLUME 9.6 fL (9.0-12.2); MONOCYTES # (AUTO) 0.2 10^3/uL (0.0-1.0); MONOCYTES % (AUTO) 7 % (0-12); NEUTROPHILS # (AUTO) 1.3 10^3/uL (1.8-7.8); NEUTROPHILS % (AUTO) 49 % (42-75); PLATELET COUNT 184 10^3/uL (130-400); WHITE BLOOD COUNT 2.7 10^3/uL (4.3-11.0)
[2020-01-21 09:59] LABS: ALANINE AMINOTRANSFERASE 15 U/L (0-55); ALBUMIN 4.2 GM/DL (3.2-4.5); ALKALINE PHOSPHATASE 59 U/L (40-136); BILIRUBIN,TOTAL 0.4 MG/DL (0.1-1.0); BUN/CREATININE RATIO 17; CALCIUM 8.7 MG/DL (8.5-10.1); CARBON DIOXIDE 24 MMOL/L (21-32); CHLORIDE 108 MMOL/L (98-107); CREATININE SERUM 0.84 MG/DL (0.60-1.30); GFR ESTIMATED > 60; GLUCOSE 107 MG/DL (70-105); POTASSIUM 4.3 MMOL/L (3.6-5.0); SODIUM 143 MMOL/L (135-145); TOTAL PROTEIN 6.9 GM/DL (6.4-8.2)
[2020-01-29 08:22] LABS: BASOPHILS # (AUTO) 0.1 10^3/uL (0.0-0.1); BASOPHILS % (AUTO) 2 % (0-10); EOSINOPHILS # (AUTO) 0.1 10^3/uL (0.0-0.3); EOSINOPHILS % (AUTO) 1 % (0-10); HEMATOCRIT 43 % (35-52); HEMOGLOBIN 13.8 g/dL (11.5-16.0); LYMPHOCYTES % (AUTO) 37 % (12-44); MEAN CORPUSCULAR HEMOGLOBIN 33 pg (25-34); MEAN CORPUSCULAR HGB CONC 32 g/dL (32-36); MEAN CORPUSCULAR VOLUME 103 fL (80-99); MONOCYTES # (AUTO) 0.7 10^3/uL (0.0-1.0); MONOCYTES % (AUTO) 12 % (0-12); NEUTROPHILS # (AUTO) 2.6 10^3/uL (1.8-7.8); NEUTROPHILS % (AUTO) 48 % (42-75); PLATELET COUNT 320 10^3/uL (130-400); WHITE BLOOD COUNT 5.4 10^3/uL (4.3-11.0)
[2020-01-29 08:34] LABS: BUN/CREATININE RATIO 15; CARBON DIOXIDE 25 MMOL/L (21-32); CHLORIDE 104 MMOL/L (98-107); CREATININE SERUM 0.84 MG/DL (0.60-1.30); GFR ESTIMATED > 60; GLUCOSE 117 MG/DL (70-105); POTASSIUM 4.1 MMOL/L (3.6-5.0); SODIUM 140 MMOL/L (135-145)
[2020-02-05 09:20] LABS: BASOPHILS # (AUTO) 0.1 10^3/uL (0.0-0.1); BASOPHILS % (AUTO) 2 % (0-10); EOSINOPHILS # (AUTO) 0.1 10^3/uL (0.0-0.3); EOSINOPHILS % (AUTO) 2 % (0-10); HEMATOCRIT 42 % (35-52); HEMOGLOBIN 13.4 g/dL (11.5-16.0); LYMPHOCYTES # (AUTO) 1.4 10^3/uL (1.0-4.0); LYMPHOCYTES % (AUTO) 32 % (12-44); MEAN CORPUSCULAR HEMOGLOBIN 33 pg (25-34); MEAN CORPUSCULAR HGB CONC 32 g/dL (32-36); MEAN CORPUSCULAR VOLUME 105 fL (80-99); MONOCYTES # (AUTO) 0.2 10^3/uL (0.0-1.0); MONOCYTES % (AUTO) 6 % (0-12); NEUTROPHILS # (AUTO) 2.4 10^3/uL (1.8-7.8); NEUTROPHILS % (AUTO) 57 % (42-75); PLATELET COUNT 333 10^3/uL (130-400); WHITE BLOOD COUNT 4.2 10^3/uL (4.3-11.0)
[2020-02-05 09:47] LABS: CALCIUM 8.5 MG/DL (8.5-10.1); CREATININE SERUM 0.99 MG/DL (0.60-1.30); POTASSIUM 4.6 MMOL/L (3.6-5.0)
[2020-02-12 08:31] LABS: BASOPHILS # (AUTO) 0.1 10^3/uL (0.0-0.1); BASOPHILS % (AUTO) 2 % (0-10); EOSINOPHILS # (AUTO) 0.1 10^3/uL (0.0-0.3); EOSINOPHILS % (AUTO) 2 % (0-10); HEMATOCRIT 42 % (35-52); HEMOGLOBIN 13.7 g/dL (11.5-16.0); LYMPHOCYTES # (AUTO) 1.3 10^3/uL (1.0-4.0); LYMPHOCYTES % (AUTO) 36 % (12-44); MEAN CORPUSCULAR HEMOGLOBIN 33 pg (25-34); MEAN CORPUSCULAR HGB CONC 33 g/dL (32-36); MEAN CORPUSCULAR VOLUME 102 fL (80-99); MONOCYTES # (AUTO) 0.3 10^3/uL (0.0-1.0); MONOCYTES % (AUTO) 7 % (0-12); NEUTROPHILS # (AUTO) 1.9 10^3/uL (1.8-7.8); NEUTROPHILS % (AUTO) 53 % (42-75); PLATELET COUNT 266 10^3/uL (130-400); WHITE BLOOD COUNT 3.7 10^3/uL (4.3-11.0)
[2020-02-12 08:55] LABS: CALCIUM 9.1 MG/DL (8.5-10.1); POTASSIUM 4.3 MMOL/L (3.6-5.0)
[2020-02-19 11:48] LABS: BASOPHILS # (AUTO) 0.1 10^3/uL (0.0-0.1); BASOPHILS % (AUTO) 2 % (0-10); EOSINOPHILS % (AUTO) 1 % (0-10); HEMATOCRIT 40 % (35-52); HEMOGLOBIN 13.2 g/dL (11.5-16.0); LYMPHOCYTES # (AUTO) 1.7 10^3/uL (1.0-4.0); LYMPHOCYTES % (AUTO) 48 % (12-44); MEAN CORPUSCULAR HEMOGLOBIN 34 pg (25-34); MEAN CORPUSCULAR HGB CONC 33 g/dL (32-36); MEAN CORPUSCULAR VOLUME 102 fL (80-99); MEAN PLATELET VOLUME 9.1 fL (9.0-12.2); MONOCYTES # (AUTO) 0.3 10^3/uL (0.0-1.0); MONOCYTES % (AUTO) 7 % (0-12); NEUTROPHILS # (AUTO) 1.5 10^3/uL (1.8-7.8); NEUTROPHILS % (AUTO) 42 % (42-75); PLATELET COUNT 177 10^3/uL (130-400); WHITE BLOOD COUNT 3.5 10^3/uL (4.3-11.0)
[2020-02-19 12:06] LABS: ALANINE AMINOTRANSFERASE 19 U/L (0-55); ALBUMIN 4.1 GM/DL (3.2-4.5); ALKALINE PHOSPHATASE 62 U/L (40-136); BILIRUBIN,TOTAL 0.4 MG/DL (0.1-1.0); BUN/CREATININE RATIO 15; CALCIUM 8.9 MG/DL (8.5-10.1); CARBON DIOXIDE 27 MMOL/L (21-32); CHLORIDE 106 MMOL/L (98-107); CREATININE SERUM 0.92 MG/DL (0.60-1.30); GFR ESTIMATED > 60; GLUCOSE 113 MG/DL (70-105); SODIUM 141 MMOL/L (135-145); TOTAL PROTEIN 6.7 GM/DL (6.4-8.2)
[2020-02-25 09:35] LABS: BASOPHILS # (AUTO) 0.1 10^3/uL (0.0-0.1); BASOPHILS % (AUTO) 2 % (0-10); EOSINOPHILS # (AUTO) 0.1 10^3/uL (0.0-0.3); EOSINOPHILS % (AUTO) 1 % (0-10); HEMATOCRIT 41 % (35-52); HEMOGLOBIN 13.2 g/dL (11.5-16.0); LYMPHOCYTES # (AUTO) 2.5 10^3/uL (1.0-4.0); LYMPHOCYTES % (AUTO) 49 % (12-44); MEAN CORPUSCULAR HEMOGLOBIN 34 pg (25-34); MEAN CORPUSCULAR HGB CONC 32 g/dL (32-36); MEAN CORPUSCULAR VOLUME 104 fL (80-99); MONOCYTES # (AUTO) 0.6 10^3/uL (0.0-1.0); MONOCYTES % (AUTO) 12 % (0-12); NEUTROPHILS # (AUTO) 1.8 10^3/uL (1.8-7.8); NEUTROPHILS % (AUTO) 36 % (42-75); PLATELET COUNT 246 10^3/uL (130-400); WHITE BLOOD COUNT 5.1 10^3/uL (4.3-11.0)
[2020-02-25 09:51] LABS: BUN/CREATININE RATIO 12; CARBON DIOXIDE 25 MMOL/L (21-32); CHLORIDE 105 MMOL/L (98-107); CREATININE SERUM 0.83 MG/DL (0.60-1.30); GFR ESTIMATED > 60; GLUCOSE 106 MG/DL (70-105); POTASSIUM 4.5 MMOL/L (3.6-5.0); SODIUM 140 MMOL/L (135-145)
[2020-03-03 09:13] LABS: BASOPHILS # (AUTO) 0.1 10^3/uL (0.0-0.1); BASOPHILS % (AUTO) 3 % (0-10); EOSINOPHILS # (AUTO) 0.1 10^3/uL (0.0-0.3); EOSINOPHILS % (AUTO) 2 % (0-10); HEMATOCRIT 41 % (35-52); HEMOGLOBIN 13.4 g/dL (11.5-16.0); LYMPHOCYTES # (AUTO) 1.6 10^3/uL (1.0-4.0); LYMPHOCYTES % (AUTO) 34 % (12-44); MEAN CORPUSCULAR HEMOGLOBIN 33 pg (25-34); MEAN CORPUSCULAR HGB CONC 33 g/dL (32-36); MEAN CORPUSCULAR VOLUME 102 fL (80-99); MEAN PLATELET VOLUME 8.8 fL (9.0-12.2); MONOCYTES # (AUTO) 0.3 10^3/uL (0.0-1.0); MONOCYTES % (AUTO) 6 % (0-12); NEUTROPHILS # (AUTO) 2.6 10^3/uL (1.8-7.8); NEUTROPHILS % (AUTO) 55 % (42-75); PLATELET COUNT 357 10^3/uL (130-400); WHITE BLOOD COUNT 4.7 10^3/uL (4.3-11.0)
[2020-03-03 09:22] LABS: CREATININE SERUM 1.04 MG/DL (0.60-1.30); POTASSIUM 4.4 MMOL/L (3.6-5.0)
[2020-03-03 14:44] LABS: SMEAR SCAN COMMENT YES
[2020-03-10 09:42] LABS: BASOPHILS # (AUTO) 0.1 10^3/uL (0.0-0.1); BASOPHILS % (AUTO) 2 % (0-10); EOSINOPHILS # (AUTO) 0.1 10^3/uL (0.0-0.3); EOSINOPHILS % (AUTO) 1 % (0-10); HEMATOCRIT 41 % (35-52); HEMOGLOBIN 13.5 g/dL (11.5-16.0); LYMPHOCYTES # (AUTO) 1.9 10^3/uL (1.0-4.0); LYMPHOCYTES % (AUTO) 40 % (12-44); MEAN CORPUSCULAR HEMOGLOBIN 34 pg (25-34); MEAN CORPUSCULAR HGB CONC 33 g/dL (32-36); MEAN CORPUSCULAR VOLUME 103 fL (80-99); MEAN PLATELET VOLUME 8.9 fL (9.0-12.2); MONOCYTES # (AUTO) 0.3 10^3/uL (0.0-1.0); MONOCYTES % (AUTO) 6 % (0-12); NEUTROPHILS # (AUTO) 2.4 10^3/uL (1.8-7.8); NEUTROPHILS % (AUTO) 51 % (42-75); PLATELET COUNT 334 10^3/uL (130-400); WHITE BLOOD COUNT 4.7 10^3/uL (4.3-11.0)
[2020-03-10 10:00] LABS: CREATININE SERUM 0.95 MG/DL (0.60-1.30); POTASSIUM 3.9 MMOL/L (3.6-5.0)
[2020-03-17 09:58] LABS: BASOPHILS # (AUTO) 0.1 10^3/uL (0.0-0.1); BASOPHILS % (AUTO) 2 % (0-10); EOSINOPHILS % (AUTO) 1 % (0-10); HEMATOCRIT 40 % (35-52); HEMOGLOBIN 13.3 g/dL (11.5-16.0); LYMPHOCYTES # (AUTO) 1.6 10^3/uL (1.0-4.0); LYMPHOCYTES % (AUTO) 44 % (12-44); MEAN CORPUSCULAR HEMOGLOBIN 34 pg (25-34); MEAN CORPUSCULAR HGB CONC 33 g/dL (32-36); MEAN CORPUSCULAR VOLUME 104 fL (80-99); MEAN PLATELET VOLUME 9.1 fL (9.0-12.2); MONOCYTES # (AUTO) 0.3 10^3/uL (0.0-1.0); MONOCYTES % (AUTO) 7 % (0-12); NEUTROPHILS # (AUTO) 1.7 10^3/uL (1.8-7.8); NEUTROPHILS % (AUTO) 46 % (42-75); PLATELET COUNT 191 10^3/uL (130-400); WHITE BLOOD COUNT 3.6 10^3/uL (4.3-11.0)
[2020-03-17 10:19] LABS: BUN/CREATININE RATIO 15; CARBON DIOXIDE 25 MMOL/L (21-32); CHLORIDE 105 MMOL/L (98-107); CREATININE SERUM 0.92 MG/DL (0.60-1.30); GFR ESTIMATED > 60; GLUCOSE 124 MG/DL (70-105); POTASSIUM 4.4 MMOL/L (3.6-5.0); SODIUM 140 MMOL/L (135-145)
[2020-03-24 14:45] LABS: BASOPHILS # (AUTO) 0.1 10^3/uL (0.0-0.1); BASOPHILS % (AUTO) 2 % (0-10); EOSINOPHILS # (AUTO) 0.1 10^3/uL (0.0-0.3); EOSINOPHILS % (AUTO) 1 % (0-10); HEMATOCRIT 39 % (35-52); HEMOGLOBIN 12.6 g/dL (11.5-16.0); LYMPHOCYTES # (AUTO) 2.2 10^3/uL (1.0-4.0); LYMPHOCYTES % (AUTO) 49 % (12-44); MEAN CORPUSCULAR HEMOGLOBIN 34 pg (25-34); MEAN CORPUSCULAR HGB CONC 33 g/dL (32-36); MEAN CORPUSCULAR VOLUME 103 fL (80-99); MEAN PLATELET VOLUME 8.9 fL (9.0-12.2); MONOCYTES # (AUTO) 0.6 10^3/uL (0.0-1.0); MONOCYTES % (AUTO) 13 % (0-12); NEUTROPHILS # (AUTO) 1.6 10^3/uL (1.8-7.8); NEUTROPHILS % (AUTO) 35 % (42-75); PLATELET COUNT 241 10^3/uL (130-400); WHITE BLOOD COUNT 4.5 10^3/uL (4.3-11.0)
[2020-03-24 15:09] LABS: ALANINE AMINOTRANSFERASE 30 U/L (0-55); ALBUMIN 4.1 GM/DL (3.2-4.5); ALKALINE PHOSPHATASE 67 U/L (40-136); BILIRUBIN,TOTAL 0.5 MG/DL (0.1-1.0); BUN/CREATININE RATIO 17; CALCIUM 8.5 MG/DL (8.5-10.1); CARBON DIOXIDE 26 MMOL/L (21-32); CHLORIDE 105 MMOL/L (98-107); CREATININE SERUM 0.81 MG/DL (0.60-1.30); GFR ESTIMATED > 60; GLUCOSE 88 MG/DL (70-105); SODIUM 141 MMOL/L (135-145); TOTAL PROTEIN 6.8 GM/DL (6.4-8.2)
[2020-03-31 10:07] LABS: BASOPHILS # (AUTO) 0.1 10^3/uL (0.0-0.1); BASOPHILS % (AUTO) 2 % (0-10); EOSINOPHILS # (AUTO) 0.1 10^3/uL (0.0-0.3); EOSINOPHILS % (AUTO) 2 % (0-10); HEMATOCRIT 42 % (35-52); HEMOGLOBIN 13.9 g/dL (11.5-16.0); LYMPHOCYTES # (AUTO) 1.9 10^3/uL (1.0-4.0); LYMPHOCYTES % (AUTO) 37 % (12-44); MEAN CORPUSCULAR HEMOGLOBIN 34 pg (25-34); MEAN CORPUSCULAR HGB CONC 33 g/dL (32-36); MEAN CORPUSCULAR VOLUME 103 fL (80-99); MEAN PLATELET VOLUME 9.1 fL (9.0-12.2); MONOCYTES # (AUTO) 0.4 10^3/uL (0.0-1.0); MONOCYTES % (AUTO) 7 % (0-12); NEUTROPHILS # (AUTO) 2.6 10^3/uL (1.8-7.8); NEUTROPHILS % (AUTO) 51 % (42-75); PLATELET COUNT 338 10^3/uL (130-400)
[2020-03-31 10:23] LABS: CALCIUM 8.5 MG/DL (8.5-10.1); CREATININE SERUM 0.95 MG/DL (0.60-1.30); POTASSIUM 4.3 MMOL/L (3.6-5.0)
[~2020-04-07 10:20] MED LIST changes: -NS IV 1000 ML (CANCER CTR) IV SCH; -PACLitaxel PROTEIN 150 MG in EMPTY IV BAG (PVC) CANCER CTR 1 EA IV SCH; -PACLitaxel PROTEIN 170 MG in EMPTY IV BAG (PVC) CANCER CTR 1 EA IV SCH
[2020-04-07 10:32] LABS: BASOPHILS # (AUTO) 0.1 10^3/uL (0.0-0.1); BASOPHILS % (AUTO) 2 % (0-10); EOSINOPHILS # (AUTO) 0.1 10^3/uL (0.0-0.3); EOSINOPHILS % (AUTO) 2 % (0-10); HEMATOCRIT 40 % (35-52); HEMOGLOBIN 13.3 g/dL (11.5-16.0); LYMPHOCYTES # (AUTO) 1.6 10^3/uL (1.0-4.0); LYMPHOCYTES % (AUTO) 41 % (12-44); MEAN CORPUSCULAR HEMOGLOBIN 35 pg (25-34); MEAN CORPUSCULAR HGB CONC 34 g/dL (32-36); MEAN CORPUSCULAR VOLUME 103 fL (80-99); MEAN PLATELET VOLUME 8.9 fL (9.0-12.2); MONOCYTES # (AUTO) 0.3 10^3/uL (0.0-1.0); MONOCYTES % (AUTO) 7 % (0-12); NEUTROPHILS # (AUTO) 1.9 10^3/uL (1.8-7.8); NEUTROPHILS % (AUTO) 48 % (42-75); PLATELET COUNT 279 10^3/uL (130-400)
[2020-04-07 10:46] LABS: BUN/CREATININE RATIO 20; CALCIUM 8.9 MG/DL (8.5-10.1); CARBON DIOXIDE 28 MMOL/L (21-32); CHLORIDE 106 MMOL/L (98-107); CREATININE SERUM 0.85 MG/DL (0.60-1.30); GFR ESTIMATED > 60; GLUCOSE 99 MG/DL (70-105); POTASSIUM 4.1 MMOL/L (3.6-5.0); SODIUM 138 MMOL/L (135-145)
== END 2020-04-13 15:08 | disposition home or self-care (01) ==
LOC: ONC 10:20
PROVIDERS: ATTEND Internal Medicine Hematology & Oncology
DX: C50.919 Malignant neoplasm of unspecified site of unspecified female breast (principal); C79.51 Secondary malignant neoplasm of bone; C78.00 Secondary malignant neoplasm of unspecified lung; C78.7 Secondary malignant neoplasm of liver and intrahepatic bile duct
CPT/HCPCS: 36591; 36593; 80048; 80053; 82306; 85025

== ENCOUNTER → 2020-04-20 | Outpatient (CLI) | payer MEDICAID ==
[~2020-04-20] MED LIST changes: -ALTEPLASE 2 MG (CATHFLO) CANCER CENTER IV ONE; +CATHETER FLUSH 10 ML SYR IV PRN; +HOLD METFORMIN - RECEIVED CONTRAST 20 ML VIAL IV SCH; +IOHEXOL 350 MG/ML 100 ML (OMNIPAQUE 350) VIAL IV ONE; +NS 100 ML (IVPB) BAG IV ONE; -ZOLEDRONIC ACID (CANCER CTR) 4 MG in NS (IVPB) CANCER CENTER 100 ML IV SCH
[2020-04-20] MEDS: CATHETER FLUSH 10 ML SYR IV PRN ×2 (10:54→11:11)
--- NOTE | 2020-04-20 12:06 | Diagnostic Imaging Report ---
PROCEDURE: CT chest and abdomen with contrast. TECHNIQUE: Multiple contiguous axial images were obtained through the chest and abdomen after the administration of intravenous contrast. Auto Exposure Controls were utilized during the CT exam to meet ALARA standards for radiation dose reduction. INDICATION: Secondary malignant neoplasm of the bone, breast cancer with metastatic disease. COMPARISON: 12/13/2019 and 07/09/2019 FINDINGS: Left-sided Port-A-Cath is in place. 1.1 cm right paratracheal lymph node is again identified and stable from the prior examination. 1.8 x 1.2 cm precarinal lymph node is present, not significantly changed from the prior exam. No new adenopathy within the chest. Right mastectomy with associated right axillary node dissection with multiple surgical clips placed within the right axilla. Scattered vascular calcifications without aneurysmal dilatation of the thoracic aorta. The heart is within normal limits in size. No pericardial effusion. Small hiatal hernia. No left pleural effusion. Small right pleural effusion is again identified, slightly improved since the prior examination. No pneumothorax. Minimal background emphysematous changes. The left lung is clear. 1.5 x 1.2 cm pulmonary nodule within the right upper lobe is present, slightly decreased in size since the prior examination. Pleural thickening with underlying reticular opacities within the most anterior aspect of the right lung is noted, increased since the prior examination, though felt to relate to postradiation changes. 0.6 cm right lower lobe pulmonary nodule, appearing minimally decreased in size since the prior examination. 0.6 cm right middle lobe pulmonary nodule, series 2, image 41 appearing minimally more prominent than the prior examination. Mild nodularity along the right hemidiaphragm within the right lower lobe is present, appearing minimally increased. The trachea is patent. Extensive sclerosis within the sternum is noted, increased since the prior examination. Irregularity and sclerosis associated with the anterolateral right third rib is again identified, appearing similar. Multiple subacute to chronic right anterolateral rib fractures are again identified, appearing similar to the prior examination. Innumerable peripherally enhancing hypodense mass lesions are noted throughout the liver, significantly increased in size and number when compared to the prior examination. In particular, mass lesion within the inferior right hepatic lobe measures 4.2 x 3.0 cm and previously measured 2.0 x 1.5 cm. These mass lesions are identified throughout both the right and left hepatic lobes. The spleen is unremarkable. The adrenal glands are unremarkable. The pancreas is unremarkable. The gallbladder is unremarkable. The kidneys are unremarkable. Advanced vascular calcifications without aneurysmal dilatation of the abdominal aorta. No bowel obstruction within the [id number]. No significant adenopathy, free air, or free fluid within the abdomen. Scattered osseous degenerative changes without acute osseous abnormality. IMPRESSION: Findings consistent with a mixed interval response to therapy. In particular, innumerable mass lesions throughout the liver are identified which are increased in size and number since the prior examination. However, the majority of previously noted pulmonary nodules have slightly decreased in size since the prior examination. Mild pulmonary nodularity along the right hemidiaphragm however has increased since the prior exam. Mediastinal adenopathy appears similar to the prior examination. Right mastectomy with associated axillary node dissection. Slightly improved small right-sided pleural effusion. Postradiation changes associated with the anterior right lung. Dictated by: Dictated on workstation # [id number]
--- NOTE | 2020-04-20 15:55 | Diagnostic Imaging Report ---
EXAM: Whole body bone scan INDICATION: Bilateral anterior rib pain. This study was performed following administration of 25.7 mCi of 99 technetium MDP. Anterior and posterior whole body images as well as lateral views of the skull, thorax and cervical spine were obtained. The prior nuclear medicine bone scan of 12/13/2019 noted abnormal uptake in the right thoracic cage and sternum. The uptake in the right 3rd rib and the sternum was felt to be suspicious for metastatic disease related to the patient's diagnosis of breast cancer. The other areas of abnormal uptake in the 6th and 7th ribs were felt to be posttraumatic in nature. On this exam, the areas of abnormal uptake seen on the prior study are again visualized and do not appear to have changed significantly. No new bony abnormality has developed. However, there is a vague area of slightly increased uptake in the soft tissues just lateral to the right kidney. This finding is of uncertain etiology but could be related to the suspected metastatic lesion seen in the right lobe of the liver on the CT abdomen/pelvis exam performed earlier today in conjunction with the study. Both kidneys do show excretion of the radiotracer. IMPRESSION: 1. The areas of abnormal uptake involving the sternum and right ribs seen previously are again evident and no different. No new bony abnormality has developed. 2. The vague area of slightly increased uptake in the soft tissues lateral to the right kidney is of uncertain etiology. The possibility that this is related to metastatic disease involving the liver should be considered. Dictated by: Dictated on workstation # [id number]
== END ==
LOC: CARD 10:36
PROVIDERS: ATTEND Nurse Practitioner Adult Health
DX: C50.911 Malignant neoplasm of unspecified site of right female breast (principal); C79.51 Secondary malignant neoplasm of bone; C78.7 Secondary malignant neoplasm of liver and intrahepatic bile duct; C78.00 Secondary malignant neoplasm of unspecified lung; R91.8 Other nonspecific abnormal finding of lung field
CPT/HCPCS: 71260; 74160; 78306; A9503

== ENCOUNTER → 2020-04-24 | Outpatient (CLI) | payer MEDICAID ==
[~2020-04-24] MED LIST changes: -CATHETER FLUSH 10 ML SYR IV PRN; -HOLD METFORMIN - RECEIVED CONTRAST 20 ML VIAL IV SCH; -IOHEXOL 350 MG/ML 100 ML (OMNIPAQUE 350) VIAL IV ONE; -NS 100 ML (IVPB) BAG IV ONE
== END ==
LOC: CARD 09:00
PROVIDERS: ATTEND Internal Medicine Hematology & Oncology
DX: C50.519 Malignant neoplasm of lower-outer quadrant of unspecified female breast (principal); I51.9 Heart disease, unspecified
CPT/HCPCS: 93306

== ENCOUNTER 2020-07-07 09:01 | Outpatient (RCR) | payer MEDICAID ==
[2020-04-14 09:42] LABS: BASOPHILS # (AUTO) 0.1 10^3/uL (0.0-0.1); BASOPHILS % (AUTO) 2 % (0-10); EOSINOPHILS % (AUTO) 1 % (0-10); HEMATOCRIT 41 % (35-52); HEMOGLOBIN 13.4 g/dL (11.5-16.0); LYMPHOCYTES # (AUTO) 1.4 10^3/uL (1.0-4.0); LYMPHOCYTES % (AUTO) 37 % (12-44); MEAN CORPUSCULAR HEMOGLOBIN 35 pg (25-34); MEAN CORPUSCULAR HGB CONC 33 g/dL (32-36); MEAN CORPUSCULAR VOLUME 106 fL (80-99); MEAN PLATELET VOLUME 9.2 fL (9.0-12.2); MONOCYTES # (AUTO) 0.3 10^3/uL (0.0-1.0); MONOCYTES % (AUTO) 8 % (0-12); NEUTROPHILS # (AUTO) 1.9 10^3/uL (1.8-7.8); NEUTROPHILS % (AUTO) 51 % (42-75); PLATELET COUNT 191 10^3/uL (130-400); WHITE BLOOD COUNT 3.7 10^3/uL (4.3-11.0)
[2020-04-14 09:56] LABS: CALCIUM 8.8 MG/DL (8.5-10.1); CREATININE SERUM 0.95 MG/DL (0.60-1.30); POTASSIUM 4.1 MMOL/L (3.6-5.0)
[2020-04-22 09:00] LABS: BASOPHILS # (AUTO) 0.1 10^3/uL (0.0-0.1); BASOPHILS % (AUTO) 1 % (0-10); EOSINOPHILS # (AUTO) 0.1 10^3/uL (0.0-0.3); EOSINOPHILS % (AUTO) 2 % (0-10); HEMATOCRIT 41 % (35-52); HEMOGLOBIN 13.5 g/dL (11.5-16.0); LYMPHOCYTES # (AUTO) 1.8 10^3/uL (1.0-4.0); LYMPHOCYTES % (AUTO) 38 % (12-44); MEAN CORPUSCULAR HEMOGLOBIN 35 pg (25-34); MEAN CORPUSCULAR HGB CONC 33 g/dL (32-36); MEAN CORPUSCULAR VOLUME 107 fL (80-99); MONOCYTES # (AUTO) 0.6 10^3/uL (0.0-1.0); MONOCYTES % (AUTO) 13 % (0-12); NEUTROPHILS # (AUTO) 2.2 10^3/uL (1.8-7.8); NEUTROPHILS % (AUTO) 46 % (42-75); PLATELET COUNT 234 10^3/uL (130-400); WHITE BLOOD COUNT 4.9 10^3/uL (4.3-11.0)
[2020-04-22 09:19] LABS: ALANINE AMINOTRANSFERASE 60 U/L (0-55); ALBUMIN 4.3 GM/DL (3.2-4.5); ALKALINE PHOSPHATASE 96 U/L (40-136); BILIRUBIN,TOTAL 0.3 MG/DL (0.1-1.0); BUN/CREATININE RATIO 18; CALCIUM 8.8 MG/DL (8.5-10.1); CARBON DIOXIDE 27 MMOL/L (21-32); CHLORIDE 104 MMOL/L (98-107); CREATININE SERUM 0.88 MG/DL (0.60-1.30); GFR ESTIMATED > 60; GLUCOSE 112 MG/DL (70-105); POTASSIUM 4.1 MMOL/L (3.6-5.0); SODIUM 139 MMOL/L (135-145); TOTAL PROTEIN 7.3 GM/DL (6.4-8.2)
--- NOTE | 2020-04-28 15:08 | Diagnostic Imaging Report ---
INDICATION: Malfunctioning port. DETAILS OF THE PROCEDURE: The patient was brought to the fluoroscopy suite and placed on the table in the supine position. The port was accessed by Oncology nursing. 20 cc of Omnipaque 300 was injected through the port during fluoroscopic observation. A total of 33 seconds of fluoroscopic time was utilized. A preliminary radiograph does show a left chest wall port with the tip overlying the SVC. No definite fracture or interruption of the port tubing is identified. The injection images demonstrate contrast flowing through the port without evidence of extravasation. There is flow of contrast from the catheter tip; however, this was met with some resistance. There does appear to be some collection of contrast along the distal aspect of the port, suggestive of a fibrin sheath. IMPRESSION: Findings are most suggestive of a fibrin sheath at the tip of the port. No fracture or interruption of the port tubing is identified. Dictated by: Dictated on workstation # [id number]
[2020-05-05 08:34] LABS: BASOPHILS # (AUTO) 0.1 10^3/uL (0.0-0.1); BASOPHILS % (AUTO) 1 % (0-10); EOSINOPHILS # (AUTO) 0.2 10^3/uL (0.0-0.3); EOSINOPHILS % (AUTO) 2 % (0-10); HEMATOCRIT 42 % (35-52); HEMOGLOBIN 13.9 g/dL (11.5-16.0); LYMPHOCYTES % (AUTO) 25 % (12-44); MEAN CORPUSCULAR HEMOGLOBIN 35 pg (25-34); MEAN CORPUSCULAR HGB CONC 33 g/dL (32-36); MEAN CORPUSCULAR VOLUME 105 fL (80-99); MONOCYTES # (AUTO) 0.6 10^3/uL (0.0-1.0); MONOCYTES % (AUTO) 8 % (0-12); NEUTROPHILS # (AUTO) 5.1 10^3/uL (1.8-7.8); NEUTROPHILS % (AUTO) 64 % (42-75); PLATELET COUNT 309 10^3/uL (130-400)
[2020-05-05 08:54] LABS: BUN/CREATININE RATIO 19; CALCIUM 8.6 MG/DL (8.5-10.1); CARBON DIOXIDE 21 MMOL/L (21-32); CHLORIDE 105 MMOL/L (98-107); CREATININE SERUM 0.81 MG/DL (0.60-1.30); GFR ESTIMATED > 60; GLUCOSE 102 MG/DL (70-105); POTASSIUM 4.4 MMOL/L (3.6-5.0); SODIUM 139 MMOL/L (135-145)
[2020-05-12 09:48] LABS: BASOPHILS # (AUTO) 0.1 10^3/uL (0.0-0.1); BASOPHILS % (AUTO) 1 % (0-10); EOSINOPHILS # (AUTO) 0.1 10^3/uL (0.0-0.3); EOSINOPHILS % (AUTO) 2 % (0-10); HEMATOCRIT 40 % (35-52); HEMOGLOBIN 13.3 g/dL (11.5-16.0); LYMPHOCYTES # (AUTO) 1.7 10^3/uL (1.0-4.0); LYMPHOCYTES % (AUTO) 25 % (12-44); MEAN CORPUSCULAR HEMOGLOBIN 36 pg (25-34); MEAN CORPUSCULAR HGB CONC 33 g/dL (32-36); MEAN CORPUSCULAR VOLUME 107 fL (80-99); MEAN PLATELET VOLUME 9.3 fL (9.0-12.2); MONOCYTES # (AUTO) 0.5 10^3/uL (0.0-1.0); MONOCYTES % (AUTO) 7 % (0-12); NEUTROPHILS # (AUTO) 4.4 10^3/uL (1.8-7.8); NEUTROPHILS % (AUTO) 65 % (42-75); PLATELET COUNT 292 10^3/uL (130-400); WHITE BLOOD COUNT 6.9 10^3/uL (4.3-11.0)
[2020-05-12 10:17] LABS: BUN/CREATININE RATIO 14; CALCIUM 8.8 MG/DL (8.5-10.1); CARBON DIOXIDE 25 MMOL/L (21-32); CHLORIDE 106 MMOL/L (98-107); CREATININE SERUM 0.83 MG/DL (0.60-1.30); GFR ESTIMATED > 60; GLUCOSE 102 MG/DL (70-105); POTASSIUM 4.2 MMOL/L (3.6-5.0); SODIUM 141 MMOL/L (135-145)
[2020-05-19 14:03] LABS: BASOPHILS # (AUTO) 0.1 10^3/uL (0.0-0.1); BASOPHILS % (AUTO) 2 % (0-10); EOSINOPHILS # (AUTO) 0.1 10^3/uL (0.0-0.3); EOSINOPHILS % (AUTO) 2 % (0-10); HEMATOCRIT 41 % (35-52); HEMOGLOBIN 13.6 g/dL (11.5-16.0); LYMPHOCYTES # (AUTO) 1.8 10^3/uL (1.0-4.0); LYMPHOCYTES % (AUTO) 27 % (12-44); MEAN CORPUSCULAR HEMOGLOBIN 35 pg (25-34); MEAN CORPUSCULAR HGB CONC 33 g/dL (32-36); MEAN CORPUSCULAR VOLUME 107 fL (80-99); MEAN PLATELET VOLUME 9.6 fL (9.0-12.2); MONOCYTES # (AUTO) 0.9 10^3/uL (0.0-1.0); MONOCYTES % (AUTO) 14 % (0-12); NEUTROPHILS # (AUTO) 3.7 10^3/uL (1.8-7.8); NEUTROPHILS % (AUTO) 55 % (42-75); PLATELET COUNT 263 10^3/uL (130-400); WHITE BLOOD COUNT 6.7 10^3/uL (4.3-11.0)
[2020-05-19 14:22] LABS: BUN/CREATININE RATIO 15; CALCIUM 9.2 MG/DL (8.5-10.1); CARBON DIOXIDE 24 MMOL/L (21-32); CHLORIDE 108 MMOL/L (98-107); CREATININE SERUM 0.79 MG/DL (0.60-1.30); GFR ESTIMATED > 60; GLUCOSE 94 MG/DL (70-105); POTASSIUM 4.2 MMOL/L (3.6-5.0); SODIUM 141 MMOL/L (135-145)
[2020-05-26 14:22] LABS: BASOPHILS # (AUTO) 0.1 10^3/uL (0.0-0.1); BASOPHILS % (AUTO) 1 % (0-10); EOSINOPHILS # (AUTO) 0.1 10^3/uL (0.0-0.3); EOSINOPHILS % (AUTO) 2 % (0-10); HEMATOCRIT 43 % (35-52); HEMOGLOBIN 14.2 g/dL (11.5-16.0); LYMPHOCYTES # (AUTO) 1.9 10^3/uL (1.0-4.0); LYMPHOCYTES % (AUTO) 26 % (12-44); MEAN CORPUSCULAR HEMOGLOBIN 35 pg (25-34); MEAN CORPUSCULAR HGB CONC 33 g/dL (32-36); MEAN CORPUSCULAR VOLUME 106 fL (80-99); MEAN PLATELET VOLUME 9.8 fL (9.0-12.2); MONOCYTES % (AUTO) 13 % (0-12); NEUTROPHILS # (AUTO) 4.4 10^3/uL (1.8-7.8); NEUTROPHILS % (AUTO) 58 % (42-75); PLATELET COUNT 263 10^3/uL (130-400); WHITE BLOOD COUNT 7.5 10^3/uL (4.3-11.0)
[2020-05-26 14:42] LABS: ALANINE AMINOTRANSFERASE 56 U/L (0-55); ALBUMIN 4.1 GM/DL (3.2-4.5); ALKALINE PHOSPHATASE 126 U/L (40-136); BILIRUBIN,TOTAL 0.4 MG/DL (0.1-1.0); BUN/CREATININE RATIO 15; CARBON DIOXIDE 24 MMOL/L (21-32); CHLORIDE 104 MMOL/L (98-107); CREATININE SERUM 0.89 MG/DL (0.60-1.30); GFR ESTIMATED > 60; GLUCOSE 95 MG/DL (70-105); POTASSIUM 4.4 MMOL/L (3.6-5.0); SODIUM 140 MMOL/L (135-145); TOTAL PROTEIN 7.1 GM/DL (6.4-8.2)
[2020-06-02 09:20] LABS: BASOPHILS # (AUTO) 0.1 10^3/uL (0.0-0.1); BASOPHILS % (AUTO) 1 % (0-10); EOSINOPHILS # (AUTO) 0.1 10^3/uL (0.0-0.3); EOSINOPHILS % (AUTO) 2 % (0-10); HEMATOCRIT 44 % (35-52); HEMOGLOBIN 14.4 g/dL (11.5-16.0); LYMPHOCYTES # (AUTO) 1.7 10^3/uL (1.0-4.0); LYMPHOCYTES % (AUTO) 24 % (12-44); MEAN CORPUSCULAR HEMOGLOBIN 35 pg (25-34); MEAN CORPUSCULAR HGB CONC 33 g/dL (32-36); MEAN CORPUSCULAR VOLUME 107 fL (80-99); MEAN PLATELET VOLUME 9.5 fL (9.0-12.2); MONOCYTES # (AUTO) 0.5 10^3/uL (0.0-1.0); MONOCYTES % (AUTO) 8 % (0-12); NEUTROPHILS # (AUTO) 4.5 10^3/uL (1.8-7.8); NEUTROPHILS % (AUTO) 65 % (42-75); PLATELET COUNT 239 10^3/uL (130-400)
[2020-06-02 09:50] LABS: BUN/CREATININE RATIO 14; CALCIUM 9.1 MG/DL (8.5-10.1); CARBON DIOXIDE 27 MMOL/L (21-32); CHLORIDE 104 MMOL/L (98-107); CREATININE SERUM 0.93 MG/DL (0.60-1.30); GFR ESTIMATED > 60; GLUCOSE 118 MG/DL (70-105); POTASSIUM 4.6 MMOL/L (3.6-5.0); SODIUM 140 MMOL/L (135-145)
[2020-06-09 14:38] LABS: BASOPHILS # (AUTO) 0.1 10^3/uL (0.0-0.1); BASOPHILS % (AUTO) 1 % (0-10); EOSINOPHILS # (AUTO) 0.2 10^3/uL (0.0-0.3); EOSINOPHILS % (AUTO) 3 % (0-10); HEMATOCRIT 43 % (35-52); HEMOGLOBIN 13.9 g/dL (11.5-16.0); LYMPHOCYTES # (AUTO) 1.8 10^3/uL (1.0-4.0); LYMPHOCYTES % (AUTO) 30 % (12-44); MEAN CORPUSCULAR HEMOGLOBIN 35 pg (25-34); MEAN CORPUSCULAR HGB CONC 33 g/dL (32-36); MEAN CORPUSCULAR VOLUME 107 fL (80-99); MEAN PLATELET VOLUME 9.5 fL (9.0-12.2); MONOCYTES # (AUTO) 0.5 10^3/uL (0.0-1.0); MONOCYTES % (AUTO) 8 % (0-12); NEUTROPHILS # (AUTO) 3.5 10^3/uL (1.8-7.8); NEUTROPHILS % (AUTO) 59 % (42-75); PLATELET COUNT 253 10^3/uL (130-400)
[2020-06-09 14:50] LABS: BUN/CREATININE RATIO 14; CALCIUM 8.8 MG/DL (8.5-10.1); CARBON DIOXIDE 24 MMOL/L (21-32); CHLORIDE 107 MMOL/L (98-107); CREATININE SERUM 0.81 MG/DL (0.60-1.30); GFR ESTIMATED > 60; GLUCOSE 114 MG/DL (70-105); POTASSIUM 3.5 MMOL/L (3.6-5.0); SODIUM 141 MMOL/L (135-145)
[2020-06-16 09:14] LABS: BASOPHILS # (AUTO) 0.1 10^3/uL (0.0-0.1); BASOPHILS % (AUTO) 2 % (0-10); EOSINOPHILS # (AUTO) 0.1 10^3/uL (0.0-0.3); EOSINOPHILS % (AUTO) 1 % (0-10); HEMATOCRIT 42 % (35-52); LYMPHOCYTES # (AUTO) 1.4 10^3/uL (1.0-4.0); LYMPHOCYTES % (AUTO) 28 % (12-44); MEAN CORPUSCULAR HEMOGLOBIN 35 pg (25-34); MEAN CORPUSCULAR HGB CONC 33 g/dL (32-36); MEAN CORPUSCULAR VOLUME 105 fL (80-99); MEAN PLATELET VOLUME 9.3 fL (9.0-12.2); MONOCYTES # (AUTO) 0.6 10^3/uL (0.0-1.0); MONOCYTES % (AUTO) 12 % (0-12); NEUTROPHILS # (AUTO) 2.7 10^3/uL (1.8-7.8); NEUTROPHILS % (AUTO) 57 % (42-75); PLATELET COUNT 267 10^3/uL (130-400); WHITE BLOOD COUNT 4.8 10^3/uL (4.3-11.0)
[2020-06-16 09:32] LABS: BUN/CREATININE RATIO 18; CALCIUM 8.8 MG/DL (8.5-10.1); CARBON DIOXIDE 22 MMOL/L (21-32); CHLORIDE 107 MMOL/L (98-107); CREATININE SERUM 0.85 MG/DL (0.60-1.30); GFR ESTIMATED > 60; GLUCOSE 110 MG/DL (70-105); POTASSIUM 4.3 MMOL/L (3.6-5.0); SODIUM 139 MMOL/L (135-145)
[2020-06-23 10:08] LABS: BASOPHILS # (AUTO) 0.1 10^3/uL (0.0-0.1); BASOPHILS % (AUTO) 1 % (0-10); EOSINOPHILS # (AUTO) 0.1 10^3/uL (0.0-0.3); EOSINOPHILS % (AUTO) 1 % (0-10); HEMATOCRIT 44 % (35-52); HEMOGLOBIN 14.3 g/dL (11.5-16.0); LYMPHOCYTES # (AUTO) 1.9 10^3/uL (1.0-4.0); LYMPHOCYTES % (AUTO) 28 % (12-44); MEAN CORPUSCULAR HEMOGLOBIN 34 pg (25-34); MEAN CORPUSCULAR HGB CONC 33 g/dL (32-36); MEAN CORPUSCULAR VOLUME 105 fL (80-99); MEAN PLATELET VOLUME 9.4 fL (9.0-12.2); MONOCYTES # (AUTO) 0.8 10^3/uL (0.0-1.0); MONOCYTES % (AUTO) 12 % (0-12); NEUTROPHILS # (AUTO) 3.7 10^3/uL (1.8-7.8); NEUTROPHILS % (AUTO) 57 % (42-75); PLATELET COUNT 283 10^3/uL (130-400); WHITE BLOOD COUNT 6.6 10^3/uL (4.3-11.0)
[2020-06-23 10:24] LABS: ALANINE AMINOTRANSFERASE 42 U/L (0-55); ALKALINE PHOSPHATASE 105 U/L (40-136); BILIRUBIN,TOTAL 0.4 MG/DL (0.1-1.0); BUN/CREATININE RATIO 17; CALCIUM 8.9 MG/DL (8.5-10.1); CARBON DIOXIDE 25 MMOL/L (21-32); CHLORIDE 105 MMOL/L (98-107); CREATININE SERUM 0.89 MG/DL (0.60-1.30); GFR ESTIMATED > 60; GLUCOSE 97 MG/DL (70-105); POTASSIUM 4.6 MMOL/L (3.6-5.0); SODIUM 140 MMOL/L (135-145)
[2020-06-30 09:39] LABS: BASOPHILS # (AUTO) 0.1 10^3/uL (0.0-0.1); BASOPHILS % (AUTO) 2 % (0-10); EOSINOPHILS # (AUTO) 0.1 10^3/uL (0.0-0.3); EOSINOPHILS % (AUTO) 2 % (0-10); HEMATOCRIT 45 % (35-52); HEMOGLOBIN 14.9 g/dL (11.5-16.0); LYMPHOCYTES # (AUTO) 1.7 10^3/uL (1.0-4.0); LYMPHOCYTES % (AUTO) 25 % (12-44); MEAN CORPUSCULAR HEMOGLOBIN 34 pg (25-34); MEAN CORPUSCULAR HGB CONC 33 g/dL (32-36); MEAN CORPUSCULAR VOLUME 103 fL (80-99); MEAN PLATELET VOLUME 9.6 fL (9.0-12.2); MONOCYTES # (AUTO) 0.8 10^3/uL (0.0-1.0); MONOCYTES % (AUTO) 12 % (0-12); NEUTROPHILS # (AUTO) 4.1 10^3/uL (1.8-7.8); NEUTROPHILS % (AUTO) 59 % (42-75); PLATELET COUNT 236 10^3/uL (130-400); WHITE BLOOD COUNT 6.9 10^3/uL (4.3-11.0)
[2020-06-30 09:56] LABS: BUN/CREATININE RATIO 15; CARBON DIOXIDE 22 MMOL/L (21-32); CHLORIDE 106 MMOL/L (98-107); CREATININE SERUM 0.82 MG/DL (0.60-1.30); GFR ESTIMATED > 60; GLUCOSE 99 MG/DL (70-105); POTASSIUM 4.3 MMOL/L (3.6-5.0); SODIUM 137 MMOL/L (135-145)
[~2020-07-07] VITALS: Ht 165.1 cm; Wt 88.0 kg
[~2020-07-07 09:01] MED LIST changes: +ALTEPLASE 2 MG (CATHFLO) CANCER CENTER IV ONE; +D5W 500 ML IV (CANCER CTR) 500 ML IV SCH; +DOXORUBICIN LIPOSOMAL INJECT IV SCH; +FAMOTIDINE 20MG/2ML IV (CANCER CTR) IV SCH; +IOHEXOL 300 MG/ML 50 ML (OMNIPAQUE 300) VIAL IV ONE; +[UNRECOGNIZED DRUG - OTHER] IV SCH; +diphenhydrAMINE 50 MG/ML INJ (CANCER CENTER) IV PRN
[2020-07-07 09:15] LABS: BASOPHILS # (AUTO) 0.1 10^3/uL (0.0-0.1); BASOPHILS % (AUTO) 1 % (0-10); EOSINOPHILS # (AUTO) 0.1 10^3/uL (0.0-0.3); EOSINOPHILS % (AUTO) 1 % (0-10); HEMATOCRIT 44 % (35-52); HEMOGLOBIN 14.8 g/dL (11.5-16.0); LYMPHOCYTES # (AUTO) 1.2 10^3/uL (1.0-4.0); LYMPHOCYTES % (AUTO) 20 % (12-44); MEAN CORPUSCULAR HEMOGLOBIN 34 pg (25-34); MEAN CORPUSCULAR HGB CONC 34 g/dL (32-36); MEAN CORPUSCULAR VOLUME 102 fL (80-99); MEAN PLATELET VOLUME 9.6 fL (9.0-12.2); MONOCYTES # (AUTO) 0.5 10^3/uL (0.0-1.0); MONOCYTES % (AUTO) 9 % (0-12); NEUTROPHILS # (AUTO) 4.2 10^3/uL (1.8-7.8); NEUTROPHILS % (AUTO) 70 % (42-75); PLATELET COUNT 239 10^3/uL (130-400)
[2020-07-07 09:36] LABS: BUN/CREATININE RATIO 14; CARBON DIOXIDE 20 MMOL/L (21-32); CHLORIDE 107 MMOL/L (98-107); CREATININE SERUM 0.83 MG/DL (0.60-1.30); GFR ESTIMATED > 60; GLUCOSE 122 MG/DL (70-105); POTASSIUM 3.8 MMOL/L (3.6-5.0); SODIUM 139 MMOL/L (135-145)
== END 2020-07-13 | disposition home or self-care (01) ==
LOC: ONC 09:01
PROVIDERS: ATTEND Internal Medicine Hematology & Oncology
DX: C50.519 Malignant neoplasm of lower-outer quadrant of unspecified female breast (principal); C79.51 Secondary malignant neoplasm of bone; C78.00 Secondary malignant neoplasm of unspecified lung; C78.7 Secondary malignant neoplasm of liver and intrahepatic bile duct; Z90.11 Acquired absence of right breast and nipple; Z92.3 Personal history of irradiation
CPT/HCPCS: 36591; 36593; 36598; 80048; 80053; 85025; 96375; 96413; 99213

== ENCOUNTER → 2020-07-16 | Outpatient (CLI) | payer MEDICAID ==
[~2020-07-16] MED LIST changes: -ALTEPLASE 2 MG (CATHFLO) CANCER CENTER IV ONE; +CATHETER FLUSH 10 ML SYR IV PRN; -D5W 500 ML IV (CANCER CTR) 500 ML IV SCH; -DOXORUBICIN LIPOSOMAL INJECT IV SCH; -FAMOTIDINE 20MG/2ML IV (CANCER CTR) IV SCH; +HOLD METFORMIN - RECEIVED CONTRAST 20 ML VIAL IV SCH; -IOHEXOL 300 MG/ML 50 ML (OMNIPAQUE 300) VIAL IV ONE; +IOHEXOL 350 MG/ML 100 ML (OMNIPAQUE 350) VIAL IV ONE; +NS 100 ML (IVPB) BAG IV ONE; -[UNRECOGNIZED DRUG - OTHER] IV SCH; -diphenhydrAMINE 50 MG/ML INJ (CANCER CENTER) IV PRN
[2020-07-16] MEDS: CATHETER FLUSH 10 ML SYR IV PRN ×2 (10:59→11:18)
--- NOTE | 2020-07-16 12:06 | Diagnostic Imaging Report ---
PROCEDURE: CT chest and abdomen with contrast. TECHNIQUE: Multiple contiguous axial images were obtained through the chest and abdomen after the administration of intravenous contrast. Auto Exposure Controls were utilized during the CT exam to meet ALARA standards for radiation dose reduction. INDICATION: Malignant neoplasm involving lower outer quadrant of right breast. Patient is post right mastectomy. COMPARISON: 04/20/2020 Similar to the previous study, there are numerous scattered subpleural nodules in the right lung. Dominant subpleural nodule in the right middle lobe reaches 0.6 cm in diameter and is not appreciably changed. The dominant anterior nodule in the right upper lobe measures 1.2 x 1.1 cm. This previously measured 1.4 x 1.1 cm. Surgical findings in the right anterior chest wall from mastectomy and lymph node dissection are stable. Occasional prominent mediastinal lymph nodes are again noted with largest in the precarinal region measuring 1.9 x 1.4 cm. This compares with 1.8 x 1.2 cm on the previous examination. There is extensive sclerosis in the sternum similar to previous study as well. No destructive osseous lesion is identified. There is a small amount of right pleural fluid and/or thickening. IMPRESSION: Generally stable pulmonary nodules and mediastinal lymph nodes. There may be slight interval increase in size of several nodules and nodes with interval development of small amount of right pleural fluid or thickening. Below the diaphragm, there appear to be mild overall increase in number and size of numerous low-density peripherally enhancing hepatic nodules and background fatty infiltration. No biliary ductal dilatation, gallbladder or pancreatic lesion is identified. Adrenal glands and spleen are also stable. There is no evidence of pathologically enlarged abdominal adenopathy. IMPRESSION: Apparent mild overall increase in number and size of numerous hepatic lesions compatible with widespread hepatic metastatic disease. Dictated by: Dictated on workstation # [id number]
--- NOTE | 2020-07-16 15:08 | Diagnostic Imaging Report ---
INDICATION: Breast carcinoma. Patient was administered 25.2 mCi technetium 99m MDP intravenously and whole-body imaging was performed after a 3 hour delay. COMPARISON: Correlation is made with prior whole body bone scan from 04/20/2020. FINDINGS: There continues to be abnormal activity involving the right anterior 3rd rib. Activity at the level of the 6th and 7th ribs on the right is unchanged. There is intense uptake in the sternum. No new foci of tracer accumulation is seen. IMPRESSION: Stable whole body bone scan and stable uptake in the sternum and right-sided ribs when compared with exam from 04/20/2020. Dictated by: Dictated on workstation # [id number]
== END ==
LOC: CARD 10:36
PROVIDERS: ATTEND Internal Medicine Hematology & Oncology
DX: C50.511 Malignant neoplasm of lower-outer quadrant of right female breast (principal); R91.8 Other nonspecific abnormal finding of lung field; Z90.11 Acquired absence of right breast and nipple
CPT/HCPCS: 71260; 74160; 78306; A9503

== ENCOUNTER → 2020-08-18 | Outpatient (CLI) | payer MEDICAID ==
[~2020-08-18] MED LIST changes: -CATHETER FLUSH 10 ML SYR IV PRN; -HOLD METFORMIN - RECEIVED CONTRAST 20 ML VIAL IV SCH; +IOHEXOL 240 MGI/ML 50 ML (OMNIPAQUE) VIAL IV ONE; -IOHEXOL 350 MG/ML 100 ML (OMNIPAQUE 350) VIAL IV ONE; -NS 100 ML (IVPB) BAG IV ONE
--- NOTE | 2020-08-18 14:04 | Diagnostic Imaging Report ---
INDICATION: Evaluate port patency. Patient brought to the procedure and placed on the table in the supine position. The patient's left chest wall port was accessed by oncology nursing. 20 mL of Omnipaque 240 contrast was injected under fluoroscopic observation. A total of 42 seconds of fluoroscopy time was utilized. 3 images were obtained fluoroscopically. The port does appear to be patent. There is no kinking or interruption of the port tubing. No extravasation of contrast is seen. There is some minimal accumulation of contrast about the distal aspect of the port consistent with a fibrin sheath. IMPRESSION: There does appear to be a fibrin sheath about the distal aspect of the port. No port fracture or hole is identified. Dictated by: Dictated on workstation # [id number]
== END ==
LOC: RAD 10:56
PROVIDERS: ATTEND Internal Medicine Hematology & Oncology
DX: T82.594A Other mechanical complication of infusion catheter, initial encounter (principal)
CPT/HCPCS: 36598

== ENCOUNTER → 2020-09-21 | Outpatient (CLI) | payer MEDICAID ==
[~2020-09-21] MED LIST changes: +BARIUM SUSPENSION 2.1% (VANILLA SILQ) 450 ML PO ONE; +HOLD METFORMIN - RECEIVED CONTRAST 20 ML VIAL IV SCH; -IOHEXOL 240 MGI/ML 50 ML (OMNIPAQUE) VIAL IV ONE; +IOHEXOL 350 MG/ML 100 ML (OMNIPAQUE 350) VIAL IV ONE; +NS 100 ML (IVPB) BAG IV ONE
[2020-09-21] MEDS: CATHETER FLUSH 10 ML SYR IV PRN ×2 (11:33→11:42)
--- NOTE | 2020-09-21 12:02 | Diagnostic Imaging Report ---
PROCEDURE: CT chest with contrast, CT abdomen and pelvis with and without contrast. TECHNIQUE: Pre and post intravenous contrast axial imaging of the abdomen and pelvis and post contrast axial imaging of the chest were performed. Auto Exposure Controls were utilized during the CT exam to meet ALARA standards for radiation dose reduction. INDICATION: Breast carcinoma with metastatic disease. Study is performed for follow-up. Correlation is made with prior CT chest and abdomen study from 07/16/2020. CT CHEST: Left chest wall port has the tip in the SVC. There are postoperative changes of right mastectomy and right axillary lymph node dissection. No axillary lymphadenopathy is identified. No internal mammary lymphadenopathy is detected. Right paratracheal lymph node at the level of the liliana measures 18 mm x 11 mm compared with 19 mm x 14 mm on prior. No hilar lymphadenopathy is detected. There is no pericardial or pleural fluid identified. Subpleural nodularity throughout the right lung is again noted. The nodule in the anterior right upper lobe measures 15 mm x 11 mm compared with 12 mm x 10 mm. Right middle lobe nodule now measures 8 mm compared with 5 mm. Numerous nodules throughout the right lower lobe are noted similar to prior exam. Dense sclerosis of the sternum is again seen. Sclerosis of the right 3rd rib anteriorly is similar to prior exam. IMPRESSION: A slight decrease in size of precarinal lymph node when compared with prior study from 07/16/2020. There has been slight increase in size of pulmonary nodules, however when compared with prior exam. CT abdomen and pelvis: Numerous low-density masses throughout the liver are noted consistent with hepatic metastatic disease. A lesion in the inferior right lobe of the liver measures 4.0 x 2.1 cm compared with 5.2 x 2.2 cm. Numerous additional hepatic masses appear to be decreased in size as well. Gallbladder is unremarkable. There is no biliary ductal dilatation. The pancreas and spleen are unremarkable. No adrenal mass is identified. Kidneys are unremarkable. Aorta is nonaneurysmal. No definite central retroperitoneal or mesenteric lymphadenopathy is seen. No pelvic lymphadenopathy is detected. Small bowel loops are normal caliber. Colon is normal caliber. No obstruction. There is no free fluid or fluid collection. Uterus and bladder are unremarkable. IMPRESSION: Decrease in size of numerous hepatic solid masses when compared with prior study from 07/16/2020. No new abdominal or pelvic mass or evidence of lymphadenopathy is detected. Dictated by: Dictated on workstation # [id number]
--- NOTE | 2020-09-21 14:43 | Diagnostic Imaging Report ---
INDICATION: Right breast cancer. EXAMINATION: Whole body bone scan. COMPARISON: 07/16/2020. FINDINGS: There is intense activity in the sternum. There is activity in the right thoracic cage involving the 1st, 2nd, 3rd 6th, 7th, and 8th ribs. These areas were present on the comparison exam. There is no new activity seen. IMPRESSION: Stable whole body bone scan. Dictated by: Dictated on workstation # [id number]
== END ==
LOC: CARD 11:00
PROVIDERS: ATTEND Nurse Practitioner Adult Health
DX: C50.519 Malignant neoplasm of lower-outer quadrant of unspecified female breast (principal); C79.51 Secondary malignant neoplasm of bone; C78.7 Secondary malignant neoplasm of liver and intrahepatic bile duct; R91.8 Other nonspecific abnormal finding of lung field
CPT/HCPCS: 71260; 74178; 78306; A9503

== ENCOUNTER 2020-10-05 09:47 | Outpatient (RCR) | payer MEDICAID ==
[2020-07-14 09:59] LABS: BASOPHILS # (AUTO) 0.1 10^3/uL (0.0-0.1); BASOPHILS % (AUTO) 1 % (0-10); EOSINOPHILS # (AUTO) 0.1 10^3/uL (0.0-0.3); EOSINOPHILS % (AUTO) 1 % (0-10); HEMATOCRIT 42 % (35-52); LYMPHOCYTES # (AUTO) 1.3 10^3/uL (1.0-4.0); LYMPHOCYTES % (AUTO) 23 % (12-44); MEAN CORPUSCULAR HEMOGLOBIN 35 pg (25-34); MEAN CORPUSCULAR HGB CONC 33 g/dL (32-36); MEAN CORPUSCULAR VOLUME 104 fL (80-99); MEAN PLATELET VOLUME 9.5 fL (9.0-12.2); MONOCYTES # (AUTO) 0.7 10^3/uL (0.0-1.0); MONOCYTES % (AUTO) 12 % (0-12); NEUTROPHILS # (AUTO) 3.6 10^3/uL (1.8-7.8); NEUTROPHILS % (AUTO) 62 % (42-75); PLATELET COUNT 248 10^3/uL (130-400); WHITE BLOOD COUNT 5.8 10^3/uL (4.3-11.0)
[2020-07-14 10:17] LABS: BUN/CREATININE RATIO 13; CALCIUM 8.5 MG/DL (8.5-10.1); CARBON DIOXIDE 22 MMOL/L (21-32); CHLORIDE 106 MMOL/L (98-107); CREATININE SERUM 0.79 MG/DL (0.60-1.30); GFR ESTIMATED > 60; GLUCOSE 103 MG/DL (70-105); POTASSIUM 4.3 MMOL/L (3.6-5.0); SODIUM 139 MMOL/L (135-145)
[2020-07-21 09:17] LABS: BASOPHILS # (AUTO) 0.1 10^3/uL (0.0-0.1); BASOPHILS % (AUTO) 1 % (0-10); EOSINOPHILS # (AUTO) 0.1 10^3/uL (0.0-0.3); EOSINOPHILS % (AUTO) 2 % (0-10); HEMATOCRIT 45 % (35-52); HEMOGLOBIN 14.9 g/dL (11.5-16.0); LYMPHOCYTES # (AUTO) 1.4 10^3/uL (1.0-4.0); LYMPHOCYTES % (AUTO) 24 % (12-44); MEAN CORPUSCULAR HEMOGLOBIN 34 pg (25-34); MEAN CORPUSCULAR HGB CONC 33 g/dL (32-36); MEAN CORPUSCULAR VOLUME 103 fL (80-99); MEAN PLATELET VOLUME 9.5 fL (9.0-12.2); MONOCYTES # (AUTO) 0.7 10^3/uL (0.0-1.0); MONOCYTES % (AUTO) 13 % (0-12); NEUTROPHILS # (AUTO) 3.3 10^3/uL (1.8-7.8); NEUTROPHILS % (AUTO) 60 % (42-75); PLATELET COUNT 252 10^3/uL (130-400); WHITE BLOOD COUNT 5.6 10^3/uL (4.3-11.0)
[2020-07-21 09:40] LABS: ALANINE AMINOTRANSFERASE 41 U/L (0-55); ALBUMIN 4.1 GM/DL (3.2-4.5); ALKALINE PHOSPHATASE 94 U/L (40-136); BILIRUBIN,TOTAL 0.4 MG/DL (0.1-1.0); BUN/CREATININE RATIO 18; CALCIUM 8.8 MG/DL (8.5-10.1); CARBON DIOXIDE 20 MMOL/L (21-32); CHLORIDE 107 MMOL/L (98-107); CREATININE SERUM 0.82 MG/DL (0.60-1.30); GFR ESTIMATED > 60; GLUCOSE 103 MG/DL (70-105); POTASSIUM 4.3 MMOL/L (3.6-5.0); SODIUM 139 MMOL/L (135-145); TOTAL PROTEIN 6.8 GM/DL (6.4-8.2)
[2020-07-29 09:13] LABS: BASOPHILS # (AUTO) 0.1 10^3/uL (0.0-0.1); BASOPHILS % (AUTO) 1 % (0-10); EOSINOPHILS # (AUTO) 0.1 10^3/uL (0.0-0.3); EOSINOPHILS % (AUTO) 1 % (0-10); HEMATOCRIT 47 % (35-52); HEMOGLOBIN 15.2 g/dL (11.5-16.0); LYMPHOCYTES # (AUTO) 1.5 10^3/uL (1.0-4.0); LYMPHOCYTES % (AUTO) 18 % (12-44); MEAN CORPUSCULAR HEMOGLOBIN 34 pg (25-34); MEAN CORPUSCULAR HGB CONC 32 g/dL (32-36); MEAN CORPUSCULAR VOLUME 106 fL (80-99); MONOCYTES # (AUTO) 0.6 10^3/uL (0.0-1.0); MONOCYTES % (AUTO) 8 % (0-12); NEUTROPHILS # (AUTO) 5.7 10^3/uL (1.8-7.8); NEUTROPHILS % (AUTO) 72 % (42-75); PLATELET COUNT 253 10^3/uL (130-400)
[2020-07-29 09:33] LABS: BUN/CREATININE RATIO 18; CALCIUM 8.4 MG/DL (8.5-10.1); CARBON DIOXIDE 18 MMOL/L (21-32); CHLORIDE 105 MMOL/L (98-107); CREATININE SERUM 0.82 MG/DL (0.60-1.30); GFR ESTIMATED > 60; GLUCOSE 100 MG/DL (70-105); SODIUM 134 MMOL/L (135-145)
[2020-08-04 08:58] LABS: BASOPHILS # (AUTO) 0.1 10^3/uL (0.0-0.1); BASOPHILS % (AUTO) 1 % (0-10); EOSINOPHILS # (AUTO) 0.1 10^3/uL (0.0-0.3); EOSINOPHILS % (AUTO) 1 % (0-10); HEMATOCRIT 45 % (35-52); HEMOGLOBIN 14.7 g/dL (11.5-16.0); LYMPHOCYTES # (AUTO) 1.2 10^3/uL (1.0-4.0); LYMPHOCYTES % (AUTO) 20 % (12-44); MEAN CORPUSCULAR HEMOGLOBIN 34 pg (25-34); MEAN CORPUSCULAR HGB CONC 33 g/dL (32-36); MEAN CORPUSCULAR VOLUME 104 fL (80-99); MEAN PLATELET VOLUME 9.4 fL (9.0-12.2); MONOCYTES # (AUTO) 0.4 10^3/uL (0.0-1.0); MONOCYTES % (AUTO) 8 % (0-12); NEUTROPHILS % (AUTO) 70 % (42-75); PLATELET COUNT 239 10^3/uL (130-400); WHITE BLOOD COUNT 5.8 10^3/uL (4.3-11.0)
[2020-08-04 09:11] LABS: BUN/CREATININE RATIO 15; CALCIUM 8.9 MG/DL (8.5-10.1); CARBON DIOXIDE 23 MMOL/L (21-32); CHLORIDE 108 MMOL/L (98-107); CREATININE SERUM 0.81 MG/DL (0.60-1.30); GFR ESTIMATED > 60; GLUCOSE 135 MG/DL (70-105); POTASSIUM 3.8 MMOL/L (3.6-5.0); SODIUM 142 MMOL/L (135-145)
[2020-08-12 09:11] LABS: BASOPHILS # (AUTO) 0.1 10^3/uL (0.0-0.1); BASOPHILS % (AUTO) 1 % (0-10); EOSINOPHILS # (AUTO) 0.1 10^3/uL (0.0-0.3); EOSINOPHILS % (AUTO) 1 % (0-10); HEMATOCRIT 45 % (35-52); HEMOGLOBIN 14.6 g/dL (11.5-16.0); LYMPHOCYTES # (AUTO) 1.6 10^3/uL (1.0-4.0); LYMPHOCYTES % (AUTO) 29 % (12-44); MEAN CORPUSCULAR HEMOGLOBIN 33 pg (25-34); MEAN CORPUSCULAR HGB CONC 32 g/dL (32-36); MEAN CORPUSCULAR VOLUME 104 fL (80-99); MEAN PLATELET VOLUME 9.3 fL (9.0-12.2); MONOCYTES # (AUTO) 0.7 10^3/uL (0.0-1.0); MONOCYTES % (AUTO) 12 % (0-12); NEUTROPHILS # (AUTO) 3.3 10^3/uL (1.8-7.8); NEUTROPHILS % (AUTO) 58 % (42-75); PLATELET COUNT 266 10^3/uL (130-400); WHITE BLOOD COUNT 5.8 10^3/uL (4.3-11.0)
[2020-08-12 09:28] LABS: BUN/CREATININE RATIO 16; CALCIUM 8.7 MG/DL (8.5-10.1); CARBON DIOXIDE 23 MMOL/L (21-32); CHLORIDE 106 MMOL/L (98-107); CREATININE SERUM 0.82 MG/DL (0.60-1.30); GFR ESTIMATED > 60; GLUCOSE 132 MG/DL (70-105); POTASSIUM 3.9 MMOL/L (3.6-5.0); SODIUM 139 MMOL/L (135-145)
[2020-08-18 12:42] LABS: BASOPHILS # (AUTO) 0.1 10^3/uL (0.0-0.1); BASOPHILS % (AUTO) 1 % (0-10); EOSINOPHILS # (AUTO) 0.1 10^3/uL (0.0-0.3); EOSINOPHILS % (AUTO) 2 % (0-10); HEMATOCRIT 44 % (35-52); HEMOGLOBIN 14.2 g/dL (11.5-16.0); LYMPHOCYTES # (AUTO) 1.9 10^3/uL (1.0-4.0); LYMPHOCYTES % (AUTO) 29 % (12-44); MEAN CORPUSCULAR HEMOGLOBIN 34 pg (25-34); MEAN CORPUSCULAR HGB CONC 32 g/dL (32-36); MEAN CORPUSCULAR VOLUME 103 fL (80-99); MEAN PLATELET VOLUME 9.6 fL (9.0-12.2); MONOCYTES % (AUTO) 15 % (0-12); NEUTROPHILS # (AUTO) 3.4 10^3/uL (1.8-7.8); NEUTROPHILS % (AUTO) 52 % (42-75); PLATELET COUNT 273 10^3/uL (130-400); WHITE BLOOD COUNT 6.4 10^3/uL (4.3-11.0)
[2020-08-18 13:02] LABS: ALANINE AMINOTRANSFERASE 50 U/L (0-55); ALBUMIN 3.8 GM/DL (3.2-4.5); ALKALINE PHOSPHATASE 96 U/L (40-136); BILIRUBIN,TOTAL 0.3 MG/DL (0.1-1.0); BUN/CREATININE RATIO 16; CALCIUM 8.3 MG/DL (8.5-10.1); CARBON DIOXIDE 27 MMOL/L (21-32); CHLORIDE 104 MMOL/L (98-107); CREATININE SERUM 0.76 MG/DL (0.60-1.30); GFR ESTIMATED > 60; GLUCOSE 112 MG/DL (70-105); POTASSIUM 3.9 MMOL/L (3.6-5.0); SODIUM 140 MMOL/L (135-145); TOTAL PROTEIN 6.5 GM/DL (6.4-8.2)
[2020-08-25 08:57] LABS: BASOPHILS # (AUTO) 0.1 10^3/uL (0.0-0.1); BASOPHILS % (AUTO) 1 % (0-10); EOSINOPHILS # (AUTO) 0.1 10^3/uL (0.0-0.3); EOSINOPHILS % (AUTO) 1 % (0-10); HEMATOCRIT 45 % (35-52); HEMOGLOBIN 14.7 g/dL (11.5-16.0); LYMPHOCYTES # (AUTO) 1.5 X 10^3 (1.0-4.0); LYMPHOCYTES % (AUTO) 18 % (12-44); MEAN CORPUSCULAR HEMOGLOBIN 33 pg (25-34); MEAN CORPUSCULAR HGB CONC 33 g/dL (32-36); MEAN CORPUSCULAR VOLUME 102 fL (80-99); MONOCYTES # (AUTO) 0.8 X 10^3 (0.0-1.0); MONOCYTES % (AUTO) 10 % (0-12); NEUTROPHILS # (AUTO) 5.7 X 10^3 (1.8-7.8); NEUTROPHILS % (AUTO) 70 % (42-75); PLATELET COUNT 250 10^3/uL (130-400); WHITE BLOOD COUNT 8.2 10^3/uL (4.3-11.0)
[2020-08-25 09:09] LABS: BUN/CREATININE RATIO 20; CALCIUM 9.1 MG/DL (8.5-10.1); CARBON DIOXIDE 24 MMOL/L (21-32); CHLORIDE 104 MMOL/L (98-107); CREATININE SERUM 0.85 MG/DL (0.60-1.30); GFR ESTIMATED > 60; GLUCOSE 123 MG/DL (70-105); POTASSIUM 4.3 MMOL/L (3.6-5.0); SODIUM 137 MMOL/L (135-145)
[2020-09-01 09:50] LABS: BASOPHILS # (AUTO) 0.1 10^3/uL (0.0-0.1); BASOPHILS % (AUTO) 2 % (0-10); EOSINOPHILS # (AUTO) 0.1 10^3/uL (0.0-0.3); EOSINOPHILS % (AUTO) 2 % (0-10); HEMATOCRIT 45 % (35-52); HEMOGLOBIN 14.9 g/dL (11.5-16.0); LYMPHOCYTES # (AUTO) 1.3 10^3/uL (1.0-4.0); LYMPHOCYTES % (AUTO) 25 % (12-44); MEAN CORPUSCULAR HEMOGLOBIN 34 pg (25-34); MEAN CORPUSCULAR HGB CONC 33 g/dL (32-36); MEAN CORPUSCULAR VOLUME 101 fL (80-99); MEAN PLATELET VOLUME 9.6 fL (9.0-12.2); MONOCYTES # (AUTO) 0.5 10^3/uL (0.0-1.0); MONOCYTES % (AUTO) 10 % (0-12); NEUTROPHILS # (AUTO) 3.1 10^3/uL (1.8-7.8); NEUTROPHILS % (AUTO) 61 % (42-75); PLATELET COUNT 240 10^3/uL (130-400); WHITE BLOOD COUNT 5.1 10^3/uL (4.3-11.0)
[2020-09-01 10:08] LABS: BUN/CREATININE RATIO 19; CALCIUM 8.8 MG/DL (8.5-10.1); CARBON DIOXIDE 24 MMOL/L (21-32); CHLORIDE 106 MMOL/L (98-107); CREATININE SERUM 0.85 MG/DL (0.60-1.30); GFR ESTIMATED > 60; GLUCOSE 114 MG/DL (70-105); POTASSIUM 3.9 MMOL/L (3.6-5.0); SODIUM 139 MMOL/L (135-145)
[2020-09-08 10:26] LABS: BASOPHILS # (AUTO) 0.1 10^3/uL (0.0-0.1); BASOPHILS % (AUTO) 2 % (0-10); EOSINOPHILS # (AUTO) 0.1 10^3/uL (0.0-0.3); EOSINOPHILS % (AUTO) 2 % (0-10); HEMATOCRIT 45 % (35-52); HEMOGLOBIN 14.9 g/dL (11.5-16.0); LYMPHOCYTES # (AUTO) 1.3 10^3/uL (1.0-4.0); LYMPHOCYTES % (AUTO) 29 % (12-44); MEAN CORPUSCULAR HEMOGLOBIN 34 pg (25-34); MEAN CORPUSCULAR HGB CONC 33 g/dL (32-36); MEAN CORPUSCULAR VOLUME 101 fL (80-99); MEAN PLATELET VOLUME 9.4 fL (9.0-12.2); MONOCYTES # (AUTO) 0.5 10^3/uL (0.0-1.0); MONOCYTES % (AUTO) 11 % (0-12); NEUTROPHILS # (AUTO) 2.6 10^3/uL (1.8-7.8); NEUTROPHILS % (AUTO) 56 % (42-75); PLATELET COUNT 245 10^3/uL (130-400); WHITE BLOOD COUNT 4.7 10^3/uL (4.3-11.0)
[2020-09-08 10:52] LABS: BUN/CREATININE RATIO 14; CALCIUM 9.4 MG/DL (8.5-10.1); CARBON DIOXIDE 25 MMOL/L (21-32); CHLORIDE 106 MMOL/L (98-107); CREATININE SERUM 0.84 MG/DL (0.60-1.30); GFR ESTIMATED > 60; GLUCOSE 124 MG/DL (70-105); POTASSIUM 4.2 MMOL/L (3.6-5.0); SODIUM 140 MMOL/L (135-145)
[2020-09-15 09:16] LABS: BASOPHILS # (AUTO) 0.1 10^3/uL (0.0-0.1); BASOPHILS % (AUTO) 2 % (0-10); EOSINOPHILS # (AUTO) 0.1 10^3/uL (0.0-0.3); EOSINOPHILS % (AUTO) 2 % (0-10); HEMATOCRIT 45 % (35-52); HEMOGLOBIN 14.8 g/dL (11.5-16.0); LYMPHOCYTES # (AUTO) 1.1 10^3/uL (1.0-4.0); LYMPHOCYTES % (AUTO) 21 % (12-44); MEAN CORPUSCULAR HEMOGLOBIN 34 pg (25-34); MEAN CORPUSCULAR HGB CONC 33 g/dL (32-36); MEAN CORPUSCULAR VOLUME 102 fL (80-99); MEAN PLATELET VOLUME 9.1 fL (9.0-12.2); MONOCYTES # (AUTO) 0.6 10^3/uL (0.0-1.0); MONOCYTES % (AUTO) 11 % (0-12); NEUTROPHILS # (AUTO) 3.4 10^3/uL (1.8-7.8); NEUTROPHILS % (AUTO) 64 % (42-75); PLATELET COUNT 243 10^3/uL (130-400); WHITE BLOOD COUNT 5.4 10^3/uL (4.3-11.0)
[2020-09-15 09:36] LABS: ALANINE AMINOTRANSFERASE 37 U/L (0-55); ALBUMIN 3.6 GM/DL (3.2-4.5); ALKALINE PHOSPHATASE 107 U/L (40-136); BILIRUBIN,TOTAL 0.4 MG/DL (0.1-1.0); BUN/CREATININE RATIO 12; CALCIUM 8.5 MG/DL (8.5-10.1); CARBON DIOXIDE 24 MMOL/L (21-32); CHLORIDE 107 MMOL/L (98-107); CREATININE SERUM 0.81 MG/DL (0.60-1.30); GFR ESTIMATED > 60; GLUCOSE 169 MG/DL (70-105); POTASSIUM 3.7 MMOL/L (3.6-5.0); SODIUM 140 MMOL/L (135-145); TOTAL PROTEIN 6.1 GM/DL (6.4-8.2)
[2020-10-01 14:56] LABS: BASOPHILS # (AUTO) 0.1 10^3/uL (0.0-0.1); BASOPHILS % (AUTO) 1 % (0-10); EOSINOPHILS # (AUTO) 0.3 10^3/uL (0.0-0.3); EOSINOPHILS % (AUTO) 3 % (0-10); HEMATOCRIT 43 % (35-52); HEMOGLOBIN 14.2 g/dL (11.5-16.0); LYMPHOCYTES # (AUTO) 2.2 10^3/uL (1.0-4.0); LYMPHOCYTES % (AUTO) 27 % (12-44); MEAN CORPUSCULAR HEMOGLOBIN 34 pg (25-34); MEAN CORPUSCULAR HGB CONC 33 g/dL (32-36); MEAN CORPUSCULAR VOLUME 102 fL (80-99); MEAN PLATELET VOLUME 9.4 fL (9.0-12.2); MONOCYTES # (AUTO) 1.2 10^3/uL (0.0-1.0); MONOCYTES % (AUTO) 15 % (0-12); NEUTROPHILS # (AUTO) 4.2 10^3/uL (1.8-7.8); NEUTROPHILS % (AUTO) 53 % (42-75); PLATELET COUNT 239 10^3/uL (130-400)
[2020-10-01 15:14] LABS: ALBUMIN 3.7 GM/DL (3.2-4.5); BILIRUBIN,TOTAL 0.4 MG/DL (0.1-1.0); CALCIUM 9.3 MG/DL (8.5-10.1); CREATININE SERUM 0.96 MG/DL (0.60-1.30); POTASSIUM 4.4 MMOL/L (3.6-5.0)
[~2020-10-05 09:47] MED LIST changes: +ALTEPLASE 2 MG (CATHFLO) CANCER CENTER IV ONE; -BARIUM SUSPENSION 2.1% (VANILLA SILQ) 450 ML PO ONE; +D5W 500 ML IV (CANCER CTR) 500 ML IV SCH; +DOXORUBICIN LIPOSOMAL INJECT IV SCH; +FAMOTIDINE 20MG/2ML IV (CANCER CTR) IV SCH; -HOLD METFORMIN - RECEIVED CONTRAST 20 ML VIAL IV SCH; -IOHEXOL 350 MG/ML 100 ML (OMNIPAQUE 350) VIAL IV ONE; -NS 100 ML (IVPB) BAG IV ONE; +ZOLEDRONIC ACID (CANCER CTR) 3.5 MG in NS (IVPB) CANCER CENTER 100 ML IV SCH; +[UNRECOGNIZED DRUG - OTHER] IV SCH; +diphenhydrAMINE 50 MG/ML INJ (CANCER CENTER) IV PRN
== END 2020-10-12 | disposition home or self-care (01) ==
LOC: ONC 09:47
PROVIDERS: ATTEND Internal Medicine Hematology & Oncology
DX: C50.519 Malignant neoplasm of lower-outer quadrant of unspecified female breast (principal); C79.51 Secondary malignant neoplasm of bone; C78.7 Secondary malignant neoplasm of liver and intrahepatic bile duct; C78.02 Secondary malignant neoplasm of left lung; C78.01 Secondary malignant neoplasm of right lung; E66.9 Obesity, unspecified; J44.9 Chronic obstructive pulmonary disease, unspecified; E55.9 Vitamin D deficiency, unspecified; Z90.11 Acquired absence of right breast and nipple; Z92.3 Personal history of irradiation; Z92.21 Personal history of antineoplastic chemotherapy; Z79.899 Other long term (current) drug therapy; Z68.32 Body mass index [BMI] 32.0-32.9, adult; Z72.0 Tobacco use; Z79.891 Long term (current) use of opiate analgesic
CPT/HCPCS: 36593; 80048; 80053; 82306; 85025; 96367; 96374; 96375; 96413; 96523; 99213

== ENCOUNTER → 2021-01-04 | Outpatient (CLI) | payer MEDICAID ==
[~2021-01-04] MED LIST changes: -ALTEPLASE 2 MG (CATHFLO) CANCER CENTER IV ONE; -D5W 500 ML IV (CANCER CTR) 500 ML IV SCH; -DOXORUBICIN LIPOSOMAL INJECT IV SCH; -FAMOTIDINE 20MG/2ML IV (CANCER CTR) IV SCH; -ZOLEDRONIC ACID (CANCER CTR) 3.5 MG in NS (IVPB) CANCER CENTER 100 ML IV SCH; -[UNRECOGNIZED DRUG - OTHER] IV SCH; -diphenhydrAMINE 50 MG/ML INJ (CANCER CENTER) IV PRN
--- NOTE | 2021-01-04 12:01 | Diagnostic Imaging Report ---
INDICATION: Dyspnea. FINDINGS: The heart size is normal. [id number] catheter overlies left hemithorax. Tip is likely in the azygos vein. There are surgical clips in the right axilla. There are some pulmonary nodules on the right. There is no pneumothorax. Mediastinum is unremarkable. IMPRESSION: Persistent pulmonary nodules in the right lung as described. Dictated by: Dictated on workstation # [id number]
== END ==
LOC: RAD 09:35
PROVIDERS: ATTEND Nurse Practitioner Adult Health
DX: R91.8 Other nonspecific abnormal finding of lung field (principal); R06.00 Dyspnea, unspecified
CPT/HCPCS: 71046

== ENCOUNTER → 2021-01-08 | Outpatient (CLI) | payer MEDICAID ==
[~2021-01-08] MED LIST changes: +CATHETER FLUSH 10 ML SYR IV PRN; +HOLD METFORMIN - RECEIVED CONTRAST 20 ML VIAL IV SCH; +IOHEXOL 350 MG/ML 100 ML (OMNIPAQUE 350) VIAL IV ONE; +NS 100 ML (IVPB) BAG IV ONE
--- NOTE | 2021-01-08 12:34 | Diagnostic Imaging Report ---
PROCEDURE: CT chest with contrast, CT abdomen and pelvis with and without contrast. TECHNIQUE: Pre and post intravenous contrast axial imaging of the abdomen and pelvis and post contrast axial imaging of the chest were performed. Auto Exposure Controls were utilized during the CT exam to meet ALARA standards for radiation dose reduction. INDICATION: Breast carcinoma with liver and lung metastases. Correlation is made with prior CT from 09/21/2020. CT CHEST: A left chest wall port is in place. There are postoperative changes from right mastectomy and right axillary lymph node dissection. No definite axillary lymphadenopathy is seen. No internal mammary lymphadenopathy is identified. The enlarged lymph node and a right paratracheal location at the level of liliana does appear to be smaller in size measuring 14 mm x 11 mm compared with 18 mm x 11 mm on prior. No hilar lymphadenopathy is seen. No pericardial fluid is identified. There is trace right pleural effusion, similar to prior. Numerous bilateral pulmonary nodules are again noted consistent with pulmonary metastatic disease. The marker lesion in the anterior right upper lobe appears increased at 18 mm x 15 mm compared with 15 mm x 11 mm on prior. The marker right middle lobe nodule is stable at 8 mm. Nodules do appear to be more numerous than prior study. Additional nodules also appear to be slightly larger. There is subpleural nodularity in the anterior right chest, similar to prior exam. Osteoblastic metastases involving the sternum as well as in the thoracic spine is seen. IMPRESSION: 1. Mixed findings. The mediastinal lymph node has slightly decreased in size since prior CT however pulmonary metastatic disease does appear to be worse when compared with prior study from September. Osteoblastic metastatic disease also noted. CT ABDOMEN AND PELVIS: Numerous low-density lesions throughout the liver again noted consistent with hepatic metastatic disease. A marker lesion in the inferior right lobe of the liver is somewhat difficult to measure but when measured by the same technique appears to be very similar. Lesions are not as defined on today's study as prior exam, therefore making the measurements difficult but in general the appearance of the lesions appear to be similar in size. Gallbladder is unremarkable. The pancreas and spleen are unremarkable. No adrenal mass is detected. Kidneys are unremarkable. Aorta is nonaneurysmal. No central retroperitoneal or mesenteric lymphadenopathy is seen. Small and large bowel loops are normal caliber. There is no ascites. The bladder is unremarkable. No definite pelvic lymphadenopathy is seen. Bony structures are unremarkable. IMPRESSION: Stable hepatic metastatic disease since exam from 09/21/2020. No new abnormalities detected. Dictated by: Dictated on workstation # [id number]
--- NOTE | 2021-01-08 15:51 | Diagnostic Imaging Report ---
INDICATION: Breast carcinoma. TECHNIQUE: Patient was administered 27 mCi technetium-99m MDP intravenously, and whole body imaging was performed after a three-hour delay. COMPARISON: Correlation is made with prior bone scan from 09/21/2020. FINDINGS: There is uptake of activity by the axial and appendicular skeleton. There is uptake by the kidneys with excretion into the urinary bladder. Abnormal uptake involving the sternum as well as right-sided ribs appears similar to prior exam. There is some mild probable degenerative uptake at the left shoulder. There is some mild uptake in the thoracic spine. Long bones are unremarkable. IMPRESSION: Findings of osseous metastatic disease. There appears to be slightly greater uptake involving posterior ribs on the posterior view when compared with prior exam. No other significant new abnormality is seen. Dictated by: Dictated on workstation # [id number]
== END ==
LOC: CARD 10:33
PROVIDERS: ATTEND Nurse Practitioner Adult Health
DX: C50.519 Malignant neoplasm of lower-outer quadrant of unspecified female breast (principal); C79.51 Secondary malignant neoplasm of bone; C78.7 Secondary malignant neoplasm of liver and intrahepatic bile duct
CPT/HCPCS: 71260; 74178; 78306; A9503

== ENCOUNTER → 2021-01-11 | Outpatient (RCR) | payer MEDICAID ==
[2020-10-13 11:00] LABS: BASOPHILS # (AUTO) 0.1 10^3/uL (0.0-0.1); BASOPHILS % (AUTO) 1 % (0-10); EOSINOPHILS # (AUTO) 0.2 10^3/uL (0.0-0.3); EOSINOPHILS % (AUTO) 3 % (0-10); HEMATOCRIT 45 % (35-52); HEMOGLOBIN 14.6 g/dL (11.5-16.0); LYMPHOCYTES # (AUTO) 1.8 10^3/uL (1.0-4.0); LYMPHOCYTES % (AUTO) 27 % (12-44); MEAN CORPUSCULAR HEMOGLOBIN 34 pg (25-34); MEAN CORPUSCULAR HGB CONC 33 g/dL (32-36); MEAN CORPUSCULAR VOLUME 102 fL (80-99); MEAN PLATELET VOLUME 9.2 fL (9.0-12.2); MONOCYTES # (AUTO) 0.5 10^3/uL (0.0-1.0); MONOCYTES % (AUTO) 8 % (0-12); NEUTROPHILS # (AUTO) 4.1 10^3/uL (1.8-7.8); NEUTROPHILS % (AUTO) 62 % (42-75); PLATELET COUNT 234 10^3/uL (130-400); WHITE BLOOD COUNT 6.6 10^3/uL (4.3-11.0)
[2020-10-13 11:31] LABS: BUN/CREATININE RATIO 15; CALCIUM 8.9 MG/DL (8.5-10.1); CARBON DIOXIDE 25 MMOL/L (21-32); CHLORIDE 107 MMOL/L (98-107); CREATININE SERUM 0.84 MG/DL (0.60-1.30); GFR ESTIMATED > 60; GLUCOSE 144 MG/DL (70-105); POTASSIUM 3.9 MMOL/L (3.6-5.0); SODIUM 141 MMOL/L (135-145)
[2020-11-10 13:37] LABS: BASOPHILS # (AUTO) 0.1 10^3/uL (0.0-0.1); BASOPHILS % (AUTO) 1 % (0-10); EOSINOPHILS # (AUTO) 0.1 10^3/uL (0.0-0.3); EOSINOPHILS % (AUTO) 2 % (0-10); HEMATOCRIT 44 % (35-52); HEMOGLOBIN 14.6 g/dL (11.5-16.0); LYMPHOCYTES # (AUTO) 1.8 10^3/uL (1.0-4.0); LYMPHOCYTES % (AUTO) 26 % (12-44); MEAN CORPUSCULAR HEMOGLOBIN 34 pg (25-34); MEAN CORPUSCULAR HGB CONC 33 g/dL (32-36); MEAN CORPUSCULAR VOLUME 103 fL (80-99); MEAN PLATELET VOLUME 9.5 fL (9.0-12.2); MONOCYTES # (AUTO) 0.6 10^3/uL (0.0-1.0); MONOCYTES % (AUTO) 9 % (0-12); NEUTROPHILS # (AUTO) 4.2 10^3/uL (1.8-7.8); NEUTROPHILS % (AUTO) 62 % (42-75); PLATELET COUNT 221 10^3/uL (130-400); WHITE BLOOD COUNT 6.8 10^3/uL (4.3-11.0)
[2020-11-10 13:57] LABS: ALBUMIN 3.7 GM/DL (3.2-4.5); BILIRUBIN,TOTAL 0.9 MG/DL (0.1-1.0); CALCIUM 8.9 MG/DL (8.5-10.1); CREATININE SERUM 0.82 MG/DL (0.60-1.30); POTASSIUM 3.9 MMOL/L (3.6-5.0); TOTAL PROTEIN 6.9 GM/DL (6.4-8.2)
[2020-11-17 10:32] LABS: BASOPHILS # (AUTO) 0.1 10^3/uL (0.0-0.1); BASOPHILS % (AUTO) 1 % (0-10); EOSINOPHILS # (AUTO) 0.2 10^3/uL (0.0-0.3); EOSINOPHILS % (AUTO) 3 % (0-10); HEMATOCRIT 44 % (35-52); HEMOGLOBIN 14.3 g/dL (11.5-16.0); LYMPHOCYTES # (AUTO) 1.8 10^3/uL (1.0-4.0); LYMPHOCYTES % (AUTO) 28 % (12-44); MEAN CORPUSCULAR HEMOGLOBIN 34 pg (25-34); MEAN CORPUSCULAR HGB CONC 32 g/dL (32-36); MEAN CORPUSCULAR VOLUME 106 fL (80-99); MEAN PLATELET VOLUME 9.3 fL (9.0-12.2); MONOCYTES # (AUTO) 0.9 10^3/uL (0.0-1.0); MONOCYTES % (AUTO) 14 % (0-12); NEUTROPHILS # (AUTO) 3.5 10^3/uL (1.8-7.8); NEUTROPHILS % (AUTO) 54 % (42-75); PLATELET COUNT 252 10^3/uL (130-400); WHITE BLOOD COUNT 6.4 10^3/uL (4.3-11.0)
[2020-11-17 10:52] LABS: ALBUMIN 3.6 GM/DL (3.2-4.5); BILIRUBIN,TOTAL 0.9 MG/DL (0.1-1.0); CALCIUM 8.8 MG/DL (8.5-10.1); CREATININE SERUM 0.8 MG/DL (0.60-1.30); POTASSIUM 4.3 MMOL/L (3.6-5.0)
[2020-11-24 11:37] LABS: BASOPHILS # (AUTO) 0.1 10^3/uL (0.0-0.1); BASOPHILS % (AUTO) 1 % (0-10); EOSINOPHILS # (AUTO) 0.2 10^3/uL (0.0-0.3); EOSINOPHILS % (AUTO) 2 % (0-10); HEMATOCRIT 41 % (35-52); HEMOGLOBIN 13.6 g/dL (11.5-16.0); LYMPHOCYTES # (AUTO) 2.1 10^3/uL (1.0-4.0); LYMPHOCYTES % (AUTO) 26 % (12-44); MEAN CORPUSCULAR HEMOGLOBIN 35 pg (25-34); MEAN CORPUSCULAR HGB CONC 33 g/dL (32-36); MEAN CORPUSCULAR VOLUME 106 fL (80-99); MEAN PLATELET VOLUME 8.9 fL (9.0-12.2); MONOCYTES # (AUTO) 0.8 10^3/uL (0.0-1.0); MONOCYTES % (AUTO) 10 % (0-12); NEUTROPHILS # (AUTO) 4.7 10^3/uL (1.8-7.8); NEUTROPHILS % (AUTO) 60 % (42-75); PLATELET COUNT 201 10^3/uL (130-400); WHITE BLOOD COUNT 7.8 10^3/uL (4.3-11.0)
[2020-11-24 11:56] LABS: ALBUMIN 3.8 GM/DL (3.2-4.5); BILIRUBIN,TOTAL 0.8 MG/DL (0.1-1.0); CALCIUM 8.8 MG/DL (8.5-10.1); CREATININE SERUM 0.81 MG/DL (0.60-1.30); POTASSIUM 4.3 MMOL/L (3.6-5.0); TOTAL PROTEIN 6.8 GM/DL (6.4-8.2)
[2020-12-01 11:25] LABS: BASOPHILS # (AUTO) 0.1 10^3/uL (0.0-0.1); BASOPHILS % (AUTO) 1 % (0-10); EOSINOPHILS # (AUTO) 0.1 10^3/uL (0.0-0.3); EOSINOPHILS % (AUTO) 2 % (0-10); HEMATOCRIT 40 % (35-52); HEMOGLOBIN 13.2 g/dL (11.5-16.0); LYMPHOCYTES # (AUTO) 1.7 10^3/uL (1.0-4.0); LYMPHOCYTES % (AUTO) 28 % (12-44); MEAN CORPUSCULAR HEMOGLOBIN 35 pg (25-34); MEAN CORPUSCULAR HGB CONC 33 g/dL (32-36); MEAN CORPUSCULAR VOLUME 106 fL (80-99); MEAN PLATELET VOLUME 9.5 fL (9.0-12.2); MONOCYTES # (AUTO) 0.7 10^3/uL (0.0-1.0); MONOCYTES % (AUTO) 12 % (0-12); NEUTROPHILS # (AUTO) 3.6 10^3/uL (1.8-7.8); NEUTROPHILS % (AUTO) 58 % (42-75); PLATELET COUNT 170 10^3/uL (130-400); WHITE BLOOD COUNT 6.3 10^3/uL (4.3-11.0)
[2020-12-01 11:44] LABS: ALBUMIN 3.8 GM/DL (3.2-4.5); BILIRUBIN,TOTAL 0.8 MG/DL (0.1-1.0); CALCIUM 9.4 MG/DL (8.5-10.1); CREATININE SERUM 0.77 MG/DL (0.60-1.30); POTASSIUM 4.3 MMOL/L (3.6-5.0); TOTAL PROTEIN 6.7 GM/DL (6.4-8.2)
[2020-12-08 10:10] LABS: BASOPHILS # (AUTO) 0.1 10^3/uL (0.0-0.1); BASOPHILS % (AUTO) 1 % (0-10); EOSINOPHILS # (AUTO) 0.1 10^3/uL (0.0-0.3); EOSINOPHILS % (AUTO) 2 % (0-10); HEMATOCRIT 40 % (35-52); HEMOGLOBIN 13.2 g/dL (11.5-16.0); LYMPHOCYTES # (AUTO) 1.6 10^3/uL (1.0-4.0); LYMPHOCYTES % (AUTO) 30 % (12-44); MEAN CORPUSCULAR HEMOGLOBIN 36 pg (25-34); MEAN CORPUSCULAR HGB CONC 33 g/dL (32-36); MEAN CORPUSCULAR VOLUME 109 fL (80-99); MEAN PLATELET VOLUME 9.8 fL (9.0-12.2); MONOCYTES # (AUTO) 0.6 10^3/uL (0.0-1.0); MONOCYTES % (AUTO) 12 % (0-12); NEUTROPHILS # (AUTO) 2.8 10^3/uL (1.8-7.8); NEUTROPHILS % (AUTO) 55 % (42-75); PLATELET COUNT 165 10^3/uL (130-400); WHITE BLOOD COUNT 5.2 10^3/uL (4.3-11.0)
[2020-12-08 10:28] LABS: CALCIUM 8.9 MG/DL (8.5-10.1); CREATININE SERUM 0.79 MG/DL (0.60-1.30)
[2020-12-15 12:37] LABS: BASOPHILS # (AUTO) 0.1 10^3/uL (0.0-0.1); BASOPHILS % (AUTO) 1 % (0-10); EOSINOPHILS # (AUTO) 0.1 10^3/uL (0.0-0.3); EOSINOPHILS % (AUTO) 1 % (0-10); HEMATOCRIT 43 % (35-52); HEMOGLOBIN 14.5 g/dL (11.5-16.0); LYMPHOCYTES # (AUTO) 1.8 10^3/uL (1.0-4.0); LYMPHOCYTES % (AUTO) 28 % (12-44); MEAN CORPUSCULAR HEMOGLOBIN 37 pg (25-34); MEAN CORPUSCULAR HGB CONC 34 g/dL (32-36); MEAN CORPUSCULAR VOLUME 109 fL (80-99); MEAN PLATELET VOLUME 9.4 fL (9.0-12.2); MONOCYTES # (AUTO) 0.6 10^3/uL (0.0-1.0); MONOCYTES % (AUTO) 10 % (0-12); NEUTROPHILS # (AUTO) 3.9 10^3/uL (1.8-7.8); NEUTROPHILS % (AUTO) 60 % (42-75); PLATELET COUNT 200 10^3/uL (130-400); WHITE BLOOD COUNT 6.5 10^3/uL (4.3-11.0)
[2020-12-15 13:00] LABS: CALCIUM 9.1 MG/DL (8.5-10.1); CREATININE SERUM 0.84 MG/DL (0.60-1.30); POTASSIUM 3.6 MMOL/L (3.6-5.0)
[2020-12-22 13:21] LABS: BASOPHILS # (AUTO) 0.1 10^3/uL (0.0-0.1); BASOPHILS % (AUTO) 1 % (0-10); EOSINOPHILS # (AUTO) 0.1 10^3/uL (0.0-0.3); EOSINOPHILS % (AUTO) 2 % (0-10); HEMATOCRIT 41 % (35-52); HEMOGLOBIN 13.4 g/dL (11.5-16.0); LYMPHOCYTES # (AUTO) 1.6 10^3/uL (1.0-4.0); LYMPHOCYTES % (AUTO) 26 % (12-44); MEAN CORPUSCULAR HEMOGLOBIN 36 pg (25-34); MEAN CORPUSCULAR HGB CONC 33 g/dL (32-36); MEAN CORPUSCULAR VOLUME 109 fL (80-99); MEAN PLATELET VOLUME 9.8 fL (9.0-12.2); MONOCYTES # (AUTO) 0.8 10^3/uL (0.0-1.0); MONOCYTES % (AUTO) 13 % (0-12); NEUTROPHILS # (AUTO) 3.5 10^3/uL (1.8-7.8); NEUTROPHILS % (AUTO) 58 % (42-75); PLATELET COUNT 171 10^3/uL (130-400); WHITE BLOOD COUNT 6.1 10^3/uL (4.3-11.0)
[2020-12-22 13:45] LABS: ALBUMIN 3.6 GM/DL (3.2-4.5); BILIRUBIN,TOTAL 0.8 MG/DL (0.1-1.0); CALCIUM 9.5 MG/DL (8.5-10.1); CREATININE SERUM 0.86 MG/DL (0.60-1.30); POTASSIUM 4.1 MMOL/L (3.6-5.0); TOTAL PROTEIN 6.4 GM/DL (6.4-8.2)
[2020-12-29 09:45] LABS: CREATININE SERUM 0.76 MG/DL (0.60-1.30); POTASSIUM 4.1 MMOL/L (3.6-5.0)
[2020-12-29 09:47] LABS: BASOPHILS # (AUTO) 0.1 10^3/uL (0.0-0.1); BASOPHILS % (AUTO) 1 % (0-10); EOSINOPHILS # (AUTO) 0.1 10^3/uL (0.0-0.3); EOSINOPHILS % (AUTO) 1 % (0-10); HEMATOCRIT 44 % (35-52); HEMOGLOBIN 14.6 g/dL (11.5-16.0); LYMPHOCYTES # (AUTO) 1.7 10^3/uL (1.0-4.0); LYMPHOCYTES % (AUTO) 20 % (12-44); MEAN CORPUSCULAR HEMOGLOBIN 36 pg (25-34); MEAN CORPUSCULAR HGB CONC 33 g/dL (32-36); MEAN CORPUSCULAR VOLUME 110 fL (80-99); MEAN PLATELET VOLUME 9.6 fL (9.0-12.2); MONOCYTES % (AUTO) 12 % (0-12); NEUTROPHILS # (AUTO) 5.6 10^3/uL (1.8-7.8); NEUTROPHILS % (AUTO) 67 % (42-75); PLATELET COUNT 170 10^3/uL (130-400); WHITE BLOOD COUNT 8.5 10^3/uL (4.3-11.0)
[2021-01-05 10:27] LABS: BASOPHILS # (AUTO) 0.1 10^3/uL (0.0-0.1); BASOPHILS % (AUTO) 1 % (0-10); EOSINOPHILS # (AUTO) 0.1 10^3/uL (0.0-0.3); EOSINOPHILS % (AUTO) 1 % (0-10); HEMATOCRIT 45 % (35-52); HEMOGLOBIN 14.6 g/dL (11.5-16.0); LYMPHOCYTES # (AUTO) 1.8 10^3/uL (1.0-4.0); LYMPHOCYTES % (AUTO) 25 % (12-44); MEAN CORPUSCULAR HEMOGLOBIN 37 pg (25-34); MEAN CORPUSCULAR HGB CONC 33 g/dL (32-36); MEAN CORPUSCULAR VOLUME 112 fL (80-99); MEAN PLATELET VOLUME 9.5 fL (9.0-12.2); MONOCYTES # (AUTO) 0.8 10^3/uL (0.0-1.0); MONOCYTES % (AUTO) 11 % (0-12); NEUTROPHILS # (AUTO) 4.6 10^3/uL (1.8-7.8); NEUTROPHILS % (AUTO) 62 % (42-75); PLATELET COUNT 202 10^3/uL (130-400); WHITE BLOOD COUNT 7.4 10^3/uL (4.3-11.0)
[2021-01-05 10:49] LABS: CALCIUM 9.2 MG/DL (8.5-10.1); CREATININE SERUM 0.82 MG/DL (0.60-1.30); POTASSIUM 4.3 MMOL/L (3.6-5.0)
[~2021-01-11] MED LIST changes: -CATHETER FLUSH 10 ML SYR IV PRN; -HOLD METFORMIN - RECEIVED CONTRAST 20 ML VIAL IV SCH; -IOHEXOL 350 MG/ML 100 ML (OMNIPAQUE 350) VIAL IV ONE; -NS 100 ML (IVPB) BAG IV ONE; +ZOLEDRONIC ACID (CANCER CTR) 3.5 MG in NS (IVPB) CANCER CENTER 100 ML IV SCH
[2021-01-11 10:01] LABS: BASOPHILS # (AUTO) 0.1 10^3/uL (0.0-0.1); BASOPHILS % (AUTO) 1 % (0-10); EOSINOPHILS # (AUTO) 0.1 10^3/uL (0.0-0.3); EOSINOPHILS % (AUTO) 1 % (0-10); HEMATOCRIT 41 % (35-52); HEMOGLOBIN 14.2 g/dL (11.5-16.0); LYMPHOCYTES # (AUTO) 1.4 10^3/uL (1.0-4.0); LYMPHOCYTES % (AUTO) 23 % (12-44); MEAN CORPUSCULAR HEMOGLOBIN 38 pg (25-34); MEAN CORPUSCULAR HGB CONC 34 g/dL (32-36); MEAN CORPUSCULAR VOLUME 110 fL (80-99); MEAN PLATELET VOLUME 9.7 fL (9.0-12.2); MONOCYTES # (AUTO) 0.7 10^3/uL (0.0-1.0); MONOCYTES % (AUTO) 10 % (0-12); NEUTROPHILS % (AUTO) 64 % (42-75); PLATELET COUNT 173 10^3/uL (130-400); WHITE BLOOD COUNT 6.3 10^3/uL (4.3-11.0)
[2021-01-11 10:19] LABS: ALBUMIN 3.6 GM/DL (3.2-4.5); BILIRUBIN,TOTAL 0.9 MG/DL (0.1-1.0); CREATININE SERUM 0.77 MG/DL (0.60-1.30); POTASSIUM 3.9 MMOL/L (3.6-5.0); TOTAL PROTEIN 6.8 GM/DL (6.4-8.2)
== END | disposition home or self-care (01) ==
LOC: ONC 10-13 10:53
PROVIDERS: ATTEND Internal Medicine Hematology & Oncology
DX: C50.411 Malignant neoplasm of upper-outer quadrant of right female breast (principal); C79.51 Secondary malignant neoplasm of bone; C78.7 Secondary malignant neoplasm of liver and intrahepatic bile duct; C78.02 Secondary malignant neoplasm of left lung; C78.01 Secondary malignant neoplasm of right lung; E66.9 Obesity, unspecified; E55.9 Vitamin D deficiency, unspecified; M84.58XA Pathological fracture in neoplastic disease, other specified site, initial encounter for fracture; Z90.11 Acquired absence of right breast and nipple; Z92.3 Personal history of irradiation; Z92.21 Personal history of antineoplastic chemotherapy; Z79.899 Other long term (current) drug therapy; Z68.32 Body mass index [BMI] 32.0-32.9, adult; Z17.0 Estrogen receptor positive status [ER+]; Z87.891 Personal history of nicotine dependence
CPT/HCPCS: 36591; 80048; 80053; 85025; 96365; 99213

== ENCOUNTER 2021-01-22 10:01 | Emergency (ER) | payer MEDICAID ==
[~2021-01-22] VITALS: Ht 167.7 cm; Wt 83.9 kg
[~2021-01-22 10:01] MED LIST changes: -ZOLEDRONIC ACID (CANCER CTR) 3.5 MG in NS (IVPB) CANCER CENTER 100 ML IV SCH
--- NOTE | 2021-01-22 10:44 | ED Chest Pain ---
General Chief Complaint: Chest Wall Stated Complaint: RUQ PAIN Source: patient Exam Limitations: no limitations (STELLA LEIGH APRN) History of Present Illness Date Seen by Provider: Jan 22, 2021 Time Seen by Provider: 10:42 Initial Comments To ER by private vehicle with reports of right-sided chest pain quite severe started yesterday and has gotten progressively worse. She is short of breath. She has breast cancer s/p remote right mastectomy and is currently on chemo with Dr Steel. Cancer has metastasized to liver and bone. She Timing/Duration: 24 hours Severity/Quality: severe Location: other (right chest) Radiation: no radiation Activities at Onset: none ASA po STUDENT SUPPORT ADVISOR: No NTG SL STUDENT SUPPORT ADVISOR: No (STELLA LEIGH APRN) Allergies and Home Medications Allergies Coded Allergies: No Known Drug Allergies (Unverified , 07/09/19) Patient Home Medication List Home Medication List Reviewed: Yes (STELLA LEIGH APRN) Docusate Sodium (Colace) 100 Mg Capsule, 100 MG PO DAILY Prescribed by: BLUE SANTOYO on 07/09/19 1312 Oxycodone HCl (Oxycodone HCl) 10 Mg Tablet, 10 MG PO Q6H PRN for PAIN-SEVERE (8- 10) Prescribed by: STELLA LEIGH on 01/22/21 1255 Oxycodone HCl/Acetaminophen (Percocet 5-325 mg Tablet) 1 Each Tablet, 1 TAB PO Q4H PRN for PAIN-MODERATE (5-7) Prescribed by: BLUE SANTOYO on 07/09/19 1313 Review of Systems Review of Systems Constitutional: see HPI EENTM: No Symptoms Reported Respiratory: See HPI; Denies Cough; SOA at Rest Cardiovascular: See HPI, Chest Pain Gastrointestinal: No Symptoms Reported Genitourinary: No Symptoms Reported Musculoskeletal: no symptoms reported Skin: no symptoms reported Psychiatric/Neurological: No Symptoms Reported Endocrine: No Symptoms Reported (STELLA LEIGH APRN) Past Slhfszu-Uqjdse-Bvdiib Hx Immunizations Up To Date Tetanus Booster (TDap): Unknown (STELLA LEIGH APRN) Seasonal Allergies Seasonal Allergies: No (STELLA LEIGH APRN) Past Medical History Surgeries: Yes (partial mastectomy, thumb sx) Breast Respiratory: No Currently Using CPAP: No Currently Using BIPAP: No Cardiac: No Neurological: No Genitourinary: No Gastrointestinal: No Musculoskeletal: No Endocrine: No HEENT: No Cancer: Yes Breast Did You Recieve Any Treatments: Yes What Type of Treatment Did You: Surgical Intervention Psychosocial: No Integumentary: No Blood Disorders: No Adverse Reaction/Blood Tranf: No (STELLA LEIGH APRN) Physical Exam Vital Signs Vital Signs - First Documented 01/22/21 01/22/21 10:35 11:14 Pulse 91 Resp 17 B/P (MAP) 163/94 (117) Pulse Ox 93 O2 Delivery Room Air O2 Flow Rate 2.00 (TRISTIN JOHNSON DO) Vital Signs Capillary Refill : (STELLA LEIGH APRN) Height, Weight, BMI Height: '" Weight: lbs. oz. kg; 30.19 BMI Method: General Appearance: No Apparent Distress, WD/WN Respiratory: Lungs Clear, Normal Breath Sounds, No Accessory Muscle Use, No Respiratory Distress, Other (Chest wall is status postmastectomy. There is some superficial venous congestion at the site. No erythema no ulceration no rash.) Cardiovascular: Regular Rate, Rhythm, Normal Peripheral Pulses Gastrointestinal: Non Tender, Soft Extremity: Normal Capillary Refill, Normal Inspection Neurologic/Psychiatric: Alert, Oriented x3 Skin: Normal Color, Warm/Dry (STELLA LEIGH APRN) Progress/Results/Core Measures Results/Orders Lab Results Laboratory Tests Test 01/22/21 10:54 Range/Units White Blood Count 8.3 4.3-11.0 10^3/uL Red Blood Count 4.14 3.80-5.11 10^6/uL Hemoglobin 15.3 11.5-16.0 g/dL Hematocrit 46 35-52 % Mean Corpuscular Volume 110 H 80-99 fL Mean Corpuscular Hemoglobin 37 H 25-34 pg Mean Corpuscular Hemoglobin Concent 34 32-36 g/dL Red Cell Distribution Width 17.2 H 10.0-14.5 % Platelet Count 160 130-400 10^3/uL Mean Platelet Volume 9.9 9.0-12.2 fL Immature Granulocyte % (Auto) 0 % Neutrophils (%) (Auto) 68 42-75 % Lymphocytes (%) (Auto) 18 12-44 % Monocytes (%) (Auto) 12 0-12 % Eosinophils (%) (Auto) 1 0-10 % Basophils (%) (Auto) 1 0-10 % Neutrophils # (Auto) 5.6 1.8-7.8 10^3/uL Lymphocytes # (Auto) 1.5 1.0-4.0 10^3/uL Monocytes # (Auto) 1.0 0.0-1.0 10^3/uL Eosinophils # (Auto) 0.1 0.0-0.3 10^3/uL Basophils # (Auto) 0.1 0.0-0.1 10^3/uL Immature Granulocyte # (Auto) 0.0 0.0-0.1 10^3/uL D-Dimer 1.66 H 0.00-0.49 UG/ML Sodium Level 137 135-145 MMOL/L Potassium Level 4.1 3.6-5.0 MMOL/L Chloride Level 102 98-107 MMOL/L Carbon Dioxide Level 22 21-32 MMOL/L Anion Gap 13 5-14 MMOL/L Blood Urea Nitrogen 11 7-18 MG/DL Creatinine 0.78 0.60-1.30 MG/DL Estimat Glomerular Filtration Rate 75 BUN/Creatinine Ratio 14 Glucose Level 92 70-105 MG/DL Calcium Level 9.3 8.5-10.1 MG/DL Corrected Calcium 9.4 8.5-10.1 MG/DL Total Bilirubin 1.9 H 0.1-1.0 MG/DL Aspartate Amino Transf (AST/SGOT) 117 H 5-34 U/L Alanine Aminotransferase (ALT/SGPT) 112 H 0-55 U/L Alkaline Phosphatase 269 H 40-136 U/L B-Type Natriuretic Peptide < 10.0 <100.0 PG/ML Total Protein 7.5 6.4-8.2 GM/DL Albumin 3.9 3.2-4.5 GM/DL (TRISTIN JOHNSON DO) Vital Signs/I&O 01/22/21 01/22/21 01/22/21 10:35 11:14 13:47 Pulse 91 71 Resp 17 18 B/P (MAP) 163/94 (117) 132/89 Pulse Ox 93 95 96 O2 Delivery Room Air Nasal Cannula Room Air O2 Flow Rate 2.00 (TRISTIN JOHNSON DO) Departure Communication (Admissions) Family Conversation 1250-She is on oxycodone 5mg tabs 1 every 6 hours. She has 4 left. Ill increase to 10mg every 6 hours. Her pain is well controlled here after 1mg IV dilaudid. She states that her oxygen saturation at home is around 87% at times on room air. This was confirmed here as she desaturates at rest to 88% on room air and up to 96% on 2 liters. Will dc to home on supplemental oxygen. NAME: SANDY MCCALL [facility] REC#: [id number] PT STATUS: REG ER : 1960 PHYSICIAN: STELLA LEIGH INFORMATION TECHNOLOGY OFFICER ADMIT DATE: 01/22/21/ER Draft Date of Exam:01/22/21 CT ANGIO CHEST W PROCEDURE: CT angiography of the chest with contrast. TECHNIQUE: Multiple contiguous axial images were obtained through the chest after uneventful bolus administration of intravenous contrast. 3D reconstructed CTA MIP acquisitions were also performed. Auto Exposure Controls were utilized during the CT exam to meet ALARA standards for radiation dose reduction. INDICATION: Breast cancer with lung, liver and bone metastases. Patient has right-sided chest pain and shortness of breath. COMPARISON is made with prior chest from 01/08/2021. Evaluation of the pulmonary arterial system is without evidence of thromboembolism. No filling defects are seen within central, lobar and segmental branches. Thoracic aorta is normal caliber. There is no dissection. No pericardial fluid is seen. There is a small right pleural effusion. There is a left chest wall port. Postoperative changes from right mastectomy and right axillary lymph node dissection are noted. Lymph nodes in the right axilla are stable. No left axillary lymphadenopathy is seen. No supraclavicular lymphadenopathy is seen. A right paratracheal lymph node is stable since the prior study. No hilar lymphadenopathy is detected. Innumerable pulmonary nodules consistent with pulmonary metastatic disease are again noted. The dominant lesion in the anterior right upper lobe measures 19 x 16 mm as compared with 18 x 15 mm. Nodule in the medial right middle lobe is stable at 8 to 9 mm. There is some infiltrate or atelectasis in the posterior right lower lobe. 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 IMPRESSION: 1. No evidence of pulmonary emboli or acute aortic disease. 2. Small right-sided pleural effusion. 3. Diffuse pulmonary metastatic disease, similar to prior. 4. Osteoblastic metastatic disease. 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 Decision time for Depature: 12:46 (STELLA LEIGH APRN) Referrals: NO,LOCAL PHYSICIAN (PCP/Family) Primary Care Physician Patient Instructions: Bone Cancer Add. Discharge Instructions: 1. Increase your pain medication FROM oxycodone 5mg every 6 hours TO 10mg every 6 hours. All discharge instructions reviewed with patient and/or family. Voiced unde rstanding. Scripts Oxycodone HCl (Oxycodone HCl) 10 Mg Tablet 10 MG PO Q6H PRN for PAIN-SEVERE (8-10) for 7 Days, #30 TAB Prov: STELLA LEIGH APRN 01/22/21 ATTENDING PHYSICIAN NOTE: I WAS PHYSICALLY PRESENT ER PHYSICIAN WHEN THIS PATIENT WAS IN ER, BUT I WAS NOT INVOLVED IN DECISION MAKING OR ANY CARE OF THIS PATIENT. (TRISTIN JOHNSON DO) Copy Copies To 1: VERNON STEEL PETER J APRN Jan 22, 2021 10:44 TRISTIN JOHNSON DO Jan 24, 2021 20:19
[2021-01-22] MEDS ORDERED: HYDROmorphone 2 MG/ML VIAL (DILAUDID) IV ONE (10:45)
[2021-01-22 11:06] LABS: BASOPHILS # (AUTO) 0.1 10^3/uL (0.0-0.1); BASOPHILS % (AUTO) 1 % (0-10); EOSINOPHILS # (AUTO) 0.1 10^3/uL (0.0-0.3); EOSINOPHILS % (AUTO) 1 % (0-10); HEMATOCRIT 46 % (35-52); HEMOGLOBIN 15.3 g/dL (11.5-16.0); LYMPHOCYTES # (AUTO) 1.5 10^3/uL (1.0-4.0); LYMPHOCYTES % (AUTO) 18 % (12-44); MEAN CORPUSCULAR HEMOGLOBIN 37 pg (25-34); MEAN CORPUSCULAR HGB CONC 34 g/dL (32-36); MEAN CORPUSCULAR VOLUME 110 fL (80-99); MEAN PLATELET VOLUME 9.9 fL (9.0-12.2); MONOCYTES % (AUTO) 12 % (0-12); NEUTROPHILS # (AUTO) 5.6 10^3/uL (1.8-7.8); NEUTROPHILS % (AUTO) 68 % (42-75); PLATELET COUNT 160 10^3/uL (130-400); WHITE BLOOD COUNT 8.3 10^3/uL (4.3-11.0)
[2021-01-22 11:25] LABS: ALBUMIN 3.9 GM/DL (3.2-4.5); BILIRUBIN,TOTAL 1.9 MG/DL (0.1-1.0); CALCIUM 9.3 MG/DL (8.5-10.1); CREATININE SERUM 0.78 MG/DL (0.60-1.30); POTASSIUM 4.1 MMOL/L (3.6-5.0); TOTAL PROTEIN 7.5 GM/DL (6.4-8.2)
--- NOTE | 2021-01-22 11:27 | Diagnostic Imaging Report ---
EXAMINATION: Chest 1 view HISTORY: Right chest pain COMPARISON: Chest radiograph 01/04/2021 FINDINGS: Heart size and pulmonary vasculature are normal. Left-sided port catheter is unchanged. Right axillary surgical clips are unchanged. Increasing bibasilar interstitial opacities. Stable trace right pleural effusion or pleural thickening. No pneumothorax. The osseous structures are intact. IMPRESSION: 1. Mildly increased bibasilar interstitial atelectasis or consolidation. Dictated by: Dictated on workstation # [id number]
[2021-01-22] MEDS ORDERED: IOHEXOL 350 MG/ML 100 ML (OMNIPAQUE 350) VIAL IV ONE (12:00)
[2021-01-22] MEDS ORDERED: HOLD METFORMIN - RECEIVED CONTRAST 20 ML VIAL IV SCH (12:00)
[2021-01-22] MEDS ORDERED: NS 100 ML (IVPB) BAG IV ONE (12:00)
--- NOTE | 2021-01-22 12:43 | Diagnostic Imaging Report ---
PROCEDURE: CT angiography of the chest with contrast. TECHNIQUE: Multiple contiguous axial images were obtained through the chest after uneventful bolus administration of intravenous contrast. 3D reconstructed CTA MIP acquisitions were also performed. Auto Exposure Controls were utilized during the CT exam to meet ALARA standards for radiation dose reduction. INDICATION: Breast cancer with lung, liver and bone metastases. Patient has right-sided chest pain and shortness of breath. COMPARISON is made with prior chest from 01/08/2021. Evaluation of the pulmonary arterial system is without evidence of thromboembolism. No filling defects are seen within central, lobar and segmental branches. Thoracic aorta is normal caliber. There is no dissection. No pericardial fluid is seen. There is a small right pleural effusion. There is a left chest wall port. Postoperative changes from right mastectomy and right axillary lymph node dissection are noted. Lymph nodes in the right axilla are stable. No left axillary lymphadenopathy is seen. No supraclavicular lymphadenopathy is seen. A right paratracheal lymph node is stable since the prior study. No hilar lymphadenopathy is detected. Innumerable pulmonary nodules consistent with pulmonary metastatic disease are again noted. The dominant lesion in the anterior right upper lobe measures 19 x 16 mm as compared with 18 x 15 mm. Nodule in the medial right middle lobe is stable at 8 to 9 mm. There is some infiltrate or atelectasis in the posterior right lower lobe. 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 IMPRESSION: 1. No evidence of pulmonary emboli or acute aortic disease. 2. Small right-sided pleural effusion. 3. Diffuse pulmonary metastatic disease, similar to prior. 4. Osteoblastic metastatic disease. Dictated by: Dictated on workstation # [id number]
[2021-01-22] MEDS ORDERED: OXYC10TA7 PO (12:54)
[2021-01-22] MEDS ORDERED: fentaNYL INJ 100 MCG/2 ML AMP IVP ONE (13:15)
[2021-01-22] MEDS ORDERED: KETOROLAC 30 MG/ML VIAL IVP ONE (13:15)
[2021-01-22] MEDS ORDERED: ONDANSETRON 4 MG/2 ML (SDV) Z0FRAN ONE (13:26)
[2021-01-22] MEDS ORDERED: ONDANSETRON 4 MG/2 ML (SDV) Z0FRAN IVP ONE (13:30)
[2021-01-22 13:47] VITALS: BP 132/89
== END 2021-01-22 13:47 | disposition home or self-care (01) ==
LOC: EDUNIT# 10:01 → ER 10:03
DX: C79.51 Secondary malignant neoplasm of bone (principal); C78.00 Secondary malignant neoplasm of unspecified lung; R09.02 Hypoxemia; Z90.11 Acquired absence of right breast and nipple
CPT/HCPCS: 36415; 71045; 71275; 80053; 83880; 85025; 85379; 93005

== ENCOUNTER 2021-02-01 08:52 | Outpatient (CLI) | payer MEDICAID ==
[~2021-02-01] VITALS: Ht 167.7 cm; Wt 84.0 kg
[2021-02-01] VITALS (13 sets, daily range): BP systolic 106–137; BP diastolic 56–98
[~2021-02-01 08:52] MED LIST changes: +OXYC10TA7 PO
[2021-02-01] MEDS ORDERED: NS IV 1000 ML 1,000 ML IV STA (08:54)
[2021-02-01] MEDS ORDERED: MIDAZOLAM 2 MG/2 ML (VERSED) VIAL IVP ONE (09:00)
[2021-02-01] MEDS ORDERED: fentaNYL INJ 100 MCG/2 ML AMP IVP ONE (09:00)
[2021-02-01] MEDS ORDERED: LIDOCAINE 1% INJ 20 ML 20 ML VIAL INJ ONE (09:00)
[2021-02-01 09:44] LABS: HEMATOCRIT 44 % (35-52); HEMOGLOBIN 15.2 g/dL (11.5-16.0); MEAN CORPUSCULAR HEMOGLOBIN 37 pg (25-34); MEAN CORPUSCULAR HGB CONC 34 g/dL (32-36); MEAN CORPUSCULAR VOLUME 108 fL (80-99); MEAN PLATELET VOLUME 10.4 fL (9.0-12.2); PLATELET COUNT 151 10^3/uL (130-400); WHITE BLOOD COUNT 9.6 10^3/uL (4.3-11.0)
[2021-02-01 10:00] LABS: INR 1.1 (0.8-1.4); PROTHROMBIN TIME PATIENT 14.7 SEC (12.2-14.7)
--- NOTE | 2021-02-01 11:56 | Pre-Op Note & Conscious Sedat ---
Pre-Operative Progress Note H&P Reviewed The H&P was reviewed, patient examined and no changes noted. Date H&P Reviewed: Feb 01, 2021 Time H&P Reviewed: 09:00 Pre-Op Diagnosis: Liver mass Conscious Sedation Pre-Proced Time 09:00 ASA Score 2 For ASA 3 and 4: Consider anesthesia and medical clearance. Also, for patients with a history of failed moderate sedation consider anesthesia. Airway Lungs Heart ASA score ASA 1: a normal healthy patient ASA 2: a patient with a mild systemic disease (mid diabetes, controlled hypertension, obesity ASA 3: a patient with a severe systemic disease that limits activity (angina, COPD, prior Myocardial infarction) ASA 4: a patient with an incapacitating disease that is a constant threat to life (CHF, renal failure) ASA 5: a moribund patient not expected to survive 24 hrs. (ruptured aneurysm) ASA 6: a declared brain- patient whose organs are being harvested. For emergent operations, add the letter E after the classification Mallampati Classification Grade 2 Sedation Plan Analgesia, Amnesia, Plan communicated to team members, Discussed options with patient/fam, Discussed risks with patient/fam The patient is an appropriate candidate to undergo the planned procedure, sedation, and anesthesia. The patient immediately re-assessed prior to indication. RONALD CHINCHILLA MD Feb 01, 2021 11:56
[2021-02-01] MEDS ORDERED: oxyCODONE/APAP 5/325MG (PERCOCET 5) TABLET PO ONE (12:15)
--- NOTE | 2021-02-01 14:18 | Diagnostic Imaging Report ---
INDICATION: SECONDARY MALIGNANT NEOPLASM OF LIVER TECHNIQUE: All CT scans use one or more of the following dose optimizing techniques: automated exposure control, MA and/or KvP adjustment based on patient size and exam type or iterative reconstruction. Patient brought to the CT suite placed on table in the supine position. Axial imaging through the abdomen is performed to evaluate appropriate entry site. Procedure was performed utilizing conscious sedation with radiology nursing and constant patient monitoring. Patient was given a total of 100 mg of fentanyl intravenously and 1 mg of Versed intravenously. Total procedure time 11 minutes. Right abdomen was prepped and draped in usual sterile fashion. Small amount 1% lidocaine was utilized for local anesthesia. 18-gauge coaxial Temno needle was advanced into the right lobe of the liver into the region of a low density. Multiple core biopsies were obtained. The needle was removed during injection of a blood patch. Followup imaging shows no complicating features. Patient tolerated procedure well and left the department in stable condition. IMPRESSION: CT-guided core biopsy of an area of low density right lobe of the liver utilizing conscious sedation. Pathology results are currently pending. Dictated by: Dictated on workstation # [id number]
== END 2021-02-01 14:10 | disposition home or self-care (01) ==
LOC: SDC 08:52
PROVIDERS: ATTEND Internal Medicine Hematology & Oncology
DX: C50.511 Malignant neoplasm of lower-outer quadrant of right female breast (principal); C78.7 Secondary malignant neoplasm of liver and intrahepatic bile duct
CPT/HCPCS: 36415; 77012; 85027; 85610; 85730; 99156

== ENCOUNTER 2021-02-24 12:39 | Outpatient (RCR) | payer MEDICAID ==
[2021-01-19 11:32] LABS: BASOPHILS # (AUTO) 0.1 10^3/uL (0.0-0.1); BASOPHILS % (AUTO) 1 % (0-10); EOSINOPHILS # (AUTO) 0.1 10^3/uL (0.0-0.3); EOSINOPHILS % (AUTO) 1 % (0-10); HEMATOCRIT 42 % (35-52); HEMOGLOBIN 14.1 g/dL (11.5-16.0); LYMPHOCYTES # (AUTO) 1.4 10^3/uL (1.0-4.0); LYMPHOCYTES % (AUTO) 20 % (12-44); MEAN CORPUSCULAR HEMOGLOBIN 37 pg (25-34); MEAN CORPUSCULAR HGB CONC 33 g/dL (32-36); MEAN CORPUSCULAR VOLUME 110 fL (80-99); MEAN PLATELET VOLUME 10.3 fL (9.0-12.2); MONOCYTES # (AUTO) 0.9 10^3/uL (0.0-1.0); MONOCYTES % (AUTO) 12 % (0-12); NEUTROPHILS # (AUTO) 4.7 10^3/uL (1.8-7.8); NEUTROPHILS % (AUTO) 65 % (42-75); PLATELET COUNT 141 10^3/uL (130-400); WHITE BLOOD COUNT 7.2 10^3/uL (4.3-11.0)
[2021-01-19 11:59] LABS: CALCIUM 9.4 MG/DL (8.5-10.1); CREATININE SERUM 0.79 MG/DL (0.60-1.30); POTASSIUM 3.9 MMOL/L (3.6-5.0)
[2021-01-27 10:05] LABS: BASOPHILS # (AUTO) 0.1 10^3/uL (0.0-0.1); BASOPHILS % (AUTO) 2 % (0-10); EOSINOPHILS % (AUTO) 1 % (0-10); HEMATOCRIT 45 % (35-52); HEMOGLOBIN 15.3 g/dL (11.5-16.0); LYMPHOCYTES # (AUTO) 1.1 10^3/uL (1.0-4.0); LYMPHOCYTES % (AUTO) 19 % (12-44); MEAN CORPUSCULAR HEMOGLOBIN 37 pg (25-34); MEAN CORPUSCULAR HGB CONC 34 g/dL (32-36); MEAN CORPUSCULAR VOLUME 109 fL (80-99); MEAN PLATELET VOLUME 9.8 fL (9.0-12.2); MONOCYTES # (AUTO) 0.7 10^3/uL (0.0-1.0); MONOCYTES % (AUTO) 12 % (0-12); NEUTROPHILS # (AUTO) 3.9 10^3/uL (1.8-7.8); NEUTROPHILS % (AUTO) 67 % (42-75); PLATELET COUNT 191 10^3/uL (130-400); WHITE BLOOD COUNT 5.8 10^3/uL (4.3-11.0)
[2021-01-27 10:27] LABS: ALBUMIN 3.4 GM/DL (3.2-4.5); BILIRUBIN,TOTAL 1.7 MG/DL (0.1-1.0); CALCIUM 9.1 MG/DL (8.5-10.1); CREATININE SERUM 0.74 MG/DL (0.60-1.30); POTASSIUM 4.1 MMOL/L (3.6-5.0); TOTAL PROTEIN 6.9 GM/DL (6.4-8.2)
[2021-02-24 13:04] LABS: BASOPHILS # (AUTO) 0.1 10^3/uL (0.0-0.1); BASOPHILS % (AUTO) 1 % (0-10); EOSINOPHILS % (AUTO) 1 % (0-10); HEMATOCRIT 48 % (35-52); HEMOGLOBIN 16.8 g/dL (11.5-16.0); LYMPHOCYTES # (AUTO) 1.4 10^3/uL (1.0-4.0); LYMPHOCYTES % (AUTO) 18 % (12-44); MEAN CORPUSCULAR HEMOGLOBIN 36 pg (25-34); MEAN CORPUSCULAR HGB CONC 35 g/dL (32-36); MEAN CORPUSCULAR VOLUME 102 fL (80-99); MEAN PLATELET VOLUME 10.1 fL (9.0-12.2); MONOCYTES # (AUTO) 1.1 10^3/uL (0.0-1.0); MONOCYTES % (AUTO) 14 % (0-12); NEUTROPHILS # (AUTO) 5.3 10^3/uL (1.8-7.8); NEUTROPHILS % (AUTO) 66 % (42-75); PLATELET COUNT 146 10^3/uL (130-400)
[2021-02-24 13:25] LABS: ALBUMIN 3.2 GM/DL (3.2-4.5); BILIRUBIN,TOTAL 7.3 MG/DL (0.1-1.0); CALCIUM 9.8 MG/DL (8.5-10.1); CREATININE SERUM 0.76 MG/DL (0.60-1.30); POTASSIUM 4.1 MMOL/L (3.6-5.0)
[2021-03-03] MEDS ORDERED: FURO-125 PO (16:00)
[2021-03-03] MEDS ORDERED: POTA10CA43 PO (16:00)
[2021-03-03] MEDS ORDERED: LACT20SO2 PO (16:00)
== END 2021-04-09 | disposition home or self-care (01) ==
LOC: ONC 12:39
PROVIDERS: ATTEND Internal Medicine Hematology & Oncology
DX: C50.519 Malignant neoplasm of lower-outer quadrant of unspecified female breast (principal); C79.51 Secondary malignant neoplasm of bone; C78.7 Secondary malignant neoplasm of liver and intrahepatic bile duct; C78.02 Secondary malignant neoplasm of left lung; C78.01 Secondary malignant neoplasm of right lung; E66.9 Obesity, unspecified; Z90.11 Acquired absence of right breast and nipple; Z92.3 Personal history of irradiation; Z92.21 Personal history of antineoplastic chemotherapy; Z79.899 Other long term (current) drug therapy; Z68.32 Body mass index [BMI] 32.0-32.9, adult; Z72.0 Tobacco use
CPT/HCPCS: 80048; 80053; 85025; 99213

== ENCOUNTER 2021-03-03 09:55 | Emergency (ER) | payer MEDICAID ==
[~2021-03-03] VITALS: Ht 170 cm; Wt 84.0 kg
[2021-03-03 10:29] LABS: BASOPHILS % (AUTO) 0 % (0-10); EOSINOPHILS % (AUTO) 0 % (0-10); HEMATOCRIT 46 % (35-52); HEMOGLOBIN 16.9 g/dL (11.5-16.0); LYMPHOCYTES # (AUTO) 0.8 10^3/uL (1.0-4.0); LYMPHOCYTES % (AUTO) 7 % (12-44); MEAN CORPUSCULAR HEMOGLOBIN 36 pg (25-34); MEAN CORPUSCULAR HGB CONC 37 g/dL (32-36); MEAN CORPUSCULAR VOLUME 98 fL (80-99); MEAN PLATELET VOLUME 9.8 fL (9.0-12.2); MONOCYTES # (AUTO) 1.4 10^3/uL (0.0-1.0); MONOCYTES % (AUTO) 13 % (0-12); NEUTROPHILS # (AUTO) 8.4 10^3/uL (1.8-7.8); NEUTROPHILS % (AUTO) 79 % (42-75); PLATELET COUNT 142 10^3/uL (130-400); WHITE BLOOD COUNT 10.6 10^3/uL (4.3-11.0)
[2021-03-03 10:38] LABS: ALBUMIN 3.3 GM/DL (3.2-4.5)
[2021-03-03 10:40] LABS: CALCIUM 10.6 MG/DL (8.5-10.1)
[2021-03-03 10:41] LABS: TOTAL PROTEIN 6.6 GM/DL (6.4-8.2)
[2021-03-03 10:43] LABS: INR 1.3 (0.8-1.4); PROTHROMBIN TIME PATIENT 16.6 SEC (12.2-14.7)
[2021-03-03 10:45] LABS: CREATININE SERUM 1.24 MG/DL (0.60-1.30)
[2021-03-03] MEDS ORDERED: ONDANSETRON 4 MG/2 ML (SDV) Z0FRAN IVP ONE (10:45)
[2021-03-03 10:47] LABS: MAGNESIUM 2.9 MG/DL (1.6-2.4)
[2021-03-03 10:52] LABS: BILIRUBIN,TOTAL 12.8 MG/DL (0.1-1.0)
[2021-03-03 11:20] LABS: ANISOCYTOSIS SLIGHT; BAND NEUTROPHILS 0 %; BASOPHILS % (MANUAL) 0 %; EOSINOPHILS % (MANUAL) 0 %; LYMPHOCYTES % (MANUAL) 6 %; MONOCYTES % (MANUAL) 11 %; NEUTROPHILS % (MANUAL) 83 %
--- NOTE | 2021-03-03 11:27 | ED General ---
General Chief Complaint: General Problems/Pain Stated Complaint: SWOLLEN LEGS NUMB FEET DELIRIOUS Nursing Triage Note: TO ED PER W/C FROM HOME, PATIENT AND FAMLY REPORT HAS HAD STAGE 4 BREAST CANCER NOW WITH METS EVERWHERE. HAD LIVER BIOSPY 1 WEEK AGO. PATIENT SKIN COLOR YELLOW. LEG'S SWOLLEN TRIED TO WALK TODAY AND FELL. DENIES ANY INJURY FROM FALL. HAS NOT HAD CHEMO FOR 2 MONTH'S IS ON O2 AT HOME SA02 ON ADMIT 88% ROOM AIR PLACED ON O2 2 L ON ADMIT. SA02 UP TO 94% WAS COVID POS IN NOV. Source of Information: Patient, Family, Old Records, Other (Dr. Steel) Exam Limitations: No Limitations History of Present Illness Date Seen by Provider: Mar 03, 2021 Time Seen by Provider: 10:05 Initial Comments This 60-year-old woman with metastatic breast cancer to the liver and elsewhere presents to the emergency room with primary complaint of progressive swelling in her lower extremities now causing pain and numbness. She noted this to be much worse this morning. She has also had confusion and jaundice with scleral icterus developing over the past few days. She also comments on some minor difficulty with swallowing over the past 2 to 3 days. She is fairly weak and is brought to the emergency room by her sister. I discussed her case with Dr. Steel, her oncologist. He reports that she has noncurative cancer but a recent biopsy did demonstrate mutation that is treatable with a couple types of targeted therapy which may extend her life by months to possibly a couple of years. They are awaiting procurement of these medications. Patient has not yet entertained the option of hospice. She has some abdominal pain that is not significantly worse than usual. She has some new nausea this morning. She is afebrile. Allergies and Home Medications Allergies Coded Allergies: No Known Drug Allergies (Unverified , 07/09/19) Patient Home Medication List Home Medication List Reviewed: Yes Docusate Sodium (Colace) 100 Mg Capsule, 100 MG PO DAILY Prescribed by: BLUE SANTOYO on 07/09/19 1312 Furosemide (Lasix) 20 Mg Tablet, 20 MG PO DAILY PRN for edema Prescribed by: BLUE SANTOYO on 03/03/21 1600 Lactulose (Lactulose) 20 Gm/30 Ml Solution, 20 GM PO BID PRN for CONSTIPATION- 1ST LINE Prescribed by: BLUE SANTOYO on 03/03/21 1600 Oxycodone HCl (Oxycodone HCl) 10 Mg Tablet, 10 MG PO Q6H PRN for PAIN-SEVERE (8- 10) Prescribed by: STELLA LEIGH on 01/22/21 1255 Oxycodone HCl/Acetaminophen (Percocet 5-325 mg Tablet) 1 Each Tablet, 1 TAB PO Q4H PRN for PAIN-MODERATE (5-7) Prescribed by: BLUE SANTOYO on 07/09/19 1313 Potassium Chloride (Potassium Chloride) 10 Meq Capsule.er, 10 MEQ PO DAILY PRN for edema Prescribed by: BLUE SANTOYO on 03/03/21 1600 Review of Systems Review of Systems Constitutional: see HPI, weakness EENTM: no symptoms reported Respiratory: no symptoms reported Cardiovascular: see HPI, edema Gastrointestinal: see HPI Genitourinary: no symptoms reported : No Musculoskeletal: no symptoms reported Skin: see HPI (Jaundiced) Psychiatric/Neurological: See HPI, Weakness, Other (Confusion) Hematologic/Lymphatic: No Symptoms Reported Immunological/Allergic: no symptoms reported Past Menotjf-Qmevpz-Ijtduu Hx Patient Social History Tobacco Use?: Yes Substance use?: No Alcohol Use?: No Immunizations Up To Date Tetanus Booster (TDap): Unknown Seasonal Allergies Seasonal Allergies: No Past Medical History Surgeries: Yes (partial mastectomy, thumb sx) Breast Respiratory: No Currently Using CPAP: No Currently Using BIPAP: No Cardiac: No Neurological: No : No Reproductive Disorders: No Genitourinary: No Gastrointestinal: Yes (liver mets) Musculoskeletal: No Endocrine: No HEENT: No Cancer: Yes Breast Did You Recieve Any Treatments: Yes What Type of Treatment Did You: Chemotherapy, Surgical Intervention Psychosocial: No Integumentary: No Blood Disorders: No Adverse Reaction/Blood Tranf: No Physical Exam Vital Signs Vital Signs - First Documented 03/03/21 03/03/21 10:14 13:27 Temp 36.1 Pulse 95 Resp 18 B/P (MAP) 118/80 (93) Pulse Ox 88 O2 Delivery Room Air O2 Flow Rate 2.00 Capillary Refill : Less Than 3 Seconds Height, Weight, BMI Height: '" Weight: lbs. oz. kg; 29.00 BMI Method: General Appearance: No Apparent Distress, WD/WN HEENT: PERRL/EOMI, Normal ENT Inspection, Scleral Icterus (L), Scleral Icterus (R), Other (Mucous membranes somewhat dry) Neck: Normal Inspection; No JVD Respiratory: Lungs Clear, Normal Breath Sounds, No Accessory Muscle Use, No Respiratory Distress Cardiovascular: Regular Rate, Rhythm, No Murmur, Other (Rather severe lower extremity pitting edema) Gastrointestinal: Soft, Distended (Mild), Mass (Right upper quadrant), Tenderness (Right upper quad) Extremity: Pedal Edema, Swelling, Other (Rather severe pitting lower extremity edema bilaterally with palpable pedal pulses. Feet are cool to the touch. Toes are dusky with sluggish capillary refill about 6 seconds.) Neurologic/Psychiatric: Alert, No Motor/Sensory Deficits, Normal Mood/Affect, Other (Slight confusion) Skin: Normal Color, Warm/Dry Progress/Results/Core Measures Suspected Sepsis SIRS Temperature: Pulse: 95 Respiratory Rate: 18 Laboratory Tests 03/03/21 10:20: White Blood Count 10.6 Blood Pressure 118 /80 Mean: 93 Laboratory Tests 03/03/21 10:20: Creatinine 1.24, INR Comment 1.3, Platelet Count 142, Total Bilirubin 12.8*H Results/Orders Lab Results Laboratory Tests Test 03/03/21 10:20 03/03/21 14:27 Range/Units White Blood Count 10.6 4.3-11.0 10^3/uL Red Blood Count 4.73 3.80-5.11 10^6/uL Hemoglobin 16.9 H 11.5-16.0 g/dL Hematocrit 46 35-52 % Mean Corpuscular Volume 98 80-99 fL Mean Corpuscular Hemoglobin 36 H 25-34 pg Mean Corpuscular Hemoglobin Concent 37 H 32-36 g/dL Red Cell Distribution Width 17.8 H 10.0-14.5 % Platelet Count 142 130-400 10^3/uL Mean Platelet Volume 9.8 9.0-12.2 fL Immature Granulocyte % (Auto) 1 % Neutrophils (%) (Auto) 79 H 42-75 % Lymphocytes (%) (Auto) 7 L 12-44 % Monocytes (%) (Auto) 13 H 0-12 % Eosinophils (%) (Auto) 0 0-10 % Basophils (%) (Auto) 0 0-10 % Neutrophils # (Auto) 8.4 H 1.8-7.8 10^3/uL Lymphocytes # (Auto) 0.8 L 1.0-4.0 10^3/uL Monocytes # (Auto) 1.4 H 0.0-1.0 10^3/uL Eosinophils # (Auto) 0.0 0.0-0.3 10^3/uL Basophils # (Auto) 0.0 0.0-0.1 10^3/uL Immature Granulocyte # (Auto) 0.1 0.0-0.1 10^3/uL Neutrophils % (Manual) 83 % Lymphocytes % (Manual) 6 % Monocytes % (Manual) 11 % Eosinophils % (Manual) 0 % Basophils % (Manual) 0 % Band Neutrophils 0 % Anisocytosis SLIGHT Prothrombin Time 16.6 H 12.2-14.7 SEC INR Comment 1.3 0.8-1.4 Sodium Level 127 L 135-145 MMOL/L Potassium Level 5.0 3.6-5.0 MMOL/L Chloride Level 90 L 98-107 MMOL/L Carbon Dioxide Level 22 21-32 MMOL/L Anion Gap 15 H 5-14 MMOL/L Blood Urea Nitrogen 35 H 7-18 MG/DL Creatinine 1.24 0.60-1.30 MG/DL Estimat Glomerular Filtration Rate 44 BUN/Creatinine Ratio 28 Glucose Level 83 70-105 MG/DL Calcium Level 10.6 H 8.5-10.1 MG/DL Corrected Calcium 11.2 H 8.5-10.1 MG/DL Magnesium Level 2.9 H 1.6-2.4 MG/DL Total Bilirubin 12.8 *H 0.1-1.0 MG/DL Aspartate Amino Transf (AST/SGOT) 323 H 5-34 U/L Alanine Aminotransferase (ALT/SGPT) 148 H 0-55 U/L Alkaline Phosphatase 497 H 40-136 U/L Ammonia 39 H 11-32 UMOL/L B-Type Natriuretic Peptide 90.4 <100.0 PG/ML Total Protein 6.6 6.4-8.2 GM/DL Albumin 3.3 3.2-4.5 GM/DL Lipase 17 8-78 U/L Urine Color ACE H Urine Clarity CLEAR Urine pH 5.5 5-9 Urine Specific [place] 1.025 H 1.016-1.022 Urine Protein TRACE H NEGATIVE Urine Glucose (UA) TRACE H NEGATIVE Urine Ketones TRACE H NEGATIVE Urine Nitrite NEGATIVE NEGATIVE Urine Bilirubin 3+ H NEGATIVE Urine Urobilinogen 2.0 < = 1.0 MG/DL Urine Leukocyte Esterase NEGATIVE NEGATIVE Urine RBC (Auto) NEGATIVE NEGATIVE Urine RBC NONE /HPF Urine WBC RARE /HPF Urine Squamous Epithelial Cells NONE /HPF Urine Crystals NONE /LPF Urine Bacteria NEGATIVE /HPF Urine Casts PRESENT /LPF Urine Hyaline Casts 0-2 H /LPF Urine Mucus NEGATIVE /LPF Urine Culture Indicated NO My Orders Orders - BLUE RUDOLPH MD Ammonia (03/03/21 10:20) BNP (03/03/21 10:20) Cbc With Automated Diff (03/03/21 10:20) Comprehensive Metabolic Panel (03/03/21 10:20) Magnesium (03/03/21 10:20) Ua Culture If Indicated (03/03/21 10:20) Implanted Port: Access (03/03/21 10:20) Protime With Inr (03/03/21 10:22) Manual Differential (03/03/21 10:20) Ondansetron Injection (Zofran Injectio (03/03/21 10:45) Lipase (03/03/21 10:31) Us Gallbladder 11242 (03/03/21 11:04) Ns Iv 500 Ml (Sodium Chloride 0.9%) (03/03/21 12:00) Ct Neck/Chest/Abdomen/Pelvis W (03/03/21 11:45) Ct Head W Wo (03/03/21 12:22) Iohexol Injection (Omnipaque 350 Mg/Ml 1 (03/03/21 13:00) Received Contrast (Hold Metformin- Contr (03/03/21 13:00) Ns (Ivpb) (Sodium Chloride 0.9% Ivpb Bag (03/03/21 13:00) Ed Iv/Invasive Line Start (03/03/21 15:44) Ns Iv 1000 Ml (Sodium Chloride 0.9%) (03/03/21 15:45) Medications Given in ED Current Medications Medications Dose Ordered Sig/Ramona Route Start Time Stop Time Status Last Admin Dose Admin Iohexol 100 ml ONCE ONCE IV 03/03/21 13:00 03/03/21 13:01 DC 03/03/21 12:58 100 ML Ondansetron HCl 8 mg ONCE ONCE IVP 03/03/21 10:45 03/03/21 10:46 DC 03/03/21 10:44 8 MG Sodium Chloride 100 ml ONCE ONCE IV 03/03/21 13:00 03/03/21 13:01 DC 03/03/21 12:58 80 ML Sodium Chloride 500 ml @ 0 mls/hr Q0M ONCE IV 03/03/21 12:00 03/03/21 12:01 DC 03/03/21 12:11 500 MLS/HR Vital Signs/I&O 03/03/21 03/03/21 03/03/21 10:14 13:27 17:10 Temp 36.1 Pulse 95 83 75 Resp 18 18 18 B/P (MAP) 118/80 (93) 107/55 106/66 Pulse Ox 88 96 98 O2 Delivery Room Air Nasal Cannula Nasal Cannula O2 Flow Rate 2.00 2.00 Capillary Refill : Less Than 3 Seconds Blood Pressure Mean: 93 Progress Note #1: Time: 12:37 Progress Note Zofran was given for nausea. Patient was found to have significant hyperbilirubinemia and elevated transaminases which are trending up from her prior labs. Gallbladder ultrasound was obtained to evaluate for obstruction. No obstruction was identified. We are following the ultrasound with CT. We are including the head and neck due to the confusion and dysphagia and obtaining CT of the chest, abdomen and pelvis as well. I have discussed the initial presentation with Dr. Steel as well. Progress Note #2: Progress Note CT imaging demonstrated progression of metastatic disease including new mets to the brain. Prognosis seems rather poor at this point. Patient did develop some hypotension and an additional liter of normal saline was infused. Fluids resolved the hypotension. Imaging studies did not reveal any pathology requiring surgical intervention. I discussed findings with patient and her sister. We again revisited the possibility of enrolling in hospice as patient may decompensate rapidly while waiting for her targeted therapeutics to arrive. At their request, I contacted [facility] to start a consultation. Patient was provided with a prescription for lactulose to treat constipation and/or hepatic encephalopathy as well as a prescription for Lasix to help manage edema if needed. See discharge instructions. Patient demonstrated ability to drink water safely prior to discharge. Diagnostic Imaging Diagonstic Imaging: Ultrasound Plain Films/CT/US/NM/MRI: abdomen Comments NAME: SANDY MCCALL MED REC#: [id number] PT STATUS: REG ER : 1960 PHYSICIAN: BLUE RUDOLPH MD ADMIT DATE: 03/03/21/ER Draft Date of Exam:03/03/21 US GALLBLADDER [id number] PROCEDURE: US Gallbladder. TECHNIQUE: Multiple real-time grayscale images were obtained over the right upper quadrant in various projections. INDICATION: Elevated bilirubin. The liver demonstrates a markedly heterogeneous parenchymal pattern consistent with widespread metastatic disease. The liver does have a nodular contour. No definite intrahepatic biliary ductal dilatation is seen. Extrahepatic bile duct measures 7 mm. No definite gallstones are identified. Gallbladder wall is approximately 3 mm in thickness. Trace pericholecystic fluid is noted. Pancreas is poorly visualized. Aorta is nonaneurysmal. IVC is patent. The right kidney is without calculi or hydronephrosis. No significant ascites is identified. IMPRESSION: Markedly heterogeneous liver consistent with diffuse metastatic disease. No significant biliary ductal dilatation is seen. Dictated on workstation # [id number] Dict: 03/03/21 1146 Trans: 03/03/21 1151 [facility] [id number] Interpreted by: RONALD CHINCHILLA MD Diagonstic Imaging: CT Plain Films/CT/US/NM/MRI: chest, abdomen, pelvis, head Comments CT scans reviewed by me and report reviewed. See reports below: NAME: SANDY MCCALL [facility] REC#: [id number] PT STATUS: REG ER : 1960 PHYSICIAN: BLUE RUDOLPH MD ADMIT DATE: 03/03/21/ER Signed Date of Exam:03/03/21 CT NECK/CHEST/ABDOMEN/PELVIS W EXAMINATION: CT neck, chest, abdomen and pelvis with intravenous contrast. TECHNIQUE: Multiple contiguous axial images were obtained through the neck, chest, abdomen and pelvis after the uneventful administration of intravenous contrast. All CT scans use one or more of the following dose optimizing techniques: automated exposure control, MA and/or KvP adjustment based on patient size and exam type or iterative reconstruction. HISTORY: Metastatic breast cancer COMPARISON: 01/22/2021, 01/08/2021 FINDINGS: Neck CT: No pathologically enlarged lymphadenopathy. Vessels of the neck demonstrate normal course and caliber. Fascial planes are preserved and the deep spaces of the neck are normal. The visualized airway is widely patent. Please see same day CT head for intracranial findings. Degenerative changes of the spine without suspicious osseous lesion or compression fracture. Chest CT: Thyroid: The visualized thyroid gland is normal. Mediastinum: Heart size is normal without significant pericardial effusion. Calcifications of the aorta and coronary vessels. Thoracic aorta is normal in caliber. Left-sided portacatheter is present. Mildly decreased size of the prominent mediastinal lymph node measuring up to 0.8 cm short axis. Lungs and airways: There are innumerable bilateral pulmonary nodules measuring up to 1.8 cm in the right upper lobe. There are a few of these nodules have mildly increased in size from prior exam (hospital sales representative 1.0 cm left upper lobe pulmonary nodule, series 2 image 29). There is a small right pleural effusion. No pneumothorax. The airways are normal. Abdomen and Pelvis CT: Solid organs: Diffuse heterogeneous attenuation throughout the liver compatible with diffuse metastatic disease, significantly progressed from 01/22/2021. The gallbladder is normal. There is no biliary ductal dilation. Pancreas is normal. Spleen is normal. Adrenal glands are normal. The kidneys are normal without hydronephrosis. Bowel: The stomach and small bowel are normal without obstruction. The colon and appendix are normal. Peritoneum: There is mild abdominal and pelvic ascites. No suspicious lymphadenopathy. Vasculature: Calcification of the aorta without aneurysm. Musculoskeletal: Stable multilevel degenerative changes of the spine with stable chronic appearing metastases within the ribs, sternum, and thoracic spine. Multiple right rib fractures are unchanged. Pelvis: The uterus and adnexa are normal. The urinary bladder is normal. IMPRESSION: 1. Progressive pulmonary and hepatic metastatic disease compared to 01/08/2021. 2. Small right pleural effusion and mild ascites likely related to metastatic disease. 3. Stable osseous metastatic disease. Dictated by: Dictated on workstation # [id number] Dict: 03/03/21 1318 Trans: 03/03/21 1506 [facility] [id number] Interpreted by: EMERY HUGHES DO Electronically signed by: EMERY HUGHES DO 03/03/21 1506 NAME: SANDY MCCALL [facility] REC#: [id number] PT STATUS: REG ER : 1960 PHYSICIAN: BLUE RUDOLPH MD ADMIT DATE: 03/03/21/ER Signed Date of Exam:03/03/21 CT HEAD W WO EXAMINATION: CT head with and without contrast. TECHNIQUE: Multiple contiguous axial images were obtained through the brain with and without the use of intravenous contrast. All CT scans use one or more of the following dose optimizing techniques: automated exposure control, MA and/or KvP adjustment based on a patient size and exam type, or iterative reconstruction. HISTORY: Metastatic breast cancer. COMPARISON: None available. FINDINGS: The ventricles and sulci are normal. No abnormal attenuation of brain parenchyma is present. No acute intracranial hemorrhage or abnormal extra-axial fluid collections are present. There are two enhancing lesions seen within the right frontal lobe and left thalamus measuring up to 0.7 cm. No hyperdense vessel. The calvarium is intact. The mastoid air cells are clear. The visualized paranasal sinuses are clear. The orbits are normal. IMPRESSION: 1. Two enhancing lesions within the right frontal lobe and left thalamus measuring up to 0.7 cm concerning for intracranial metastases. 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 Decision time for Depature: 15:54 Referrals: NO,LOCAL PHYSICIAN (PCP/Family) Primary Care Physician Patient Instructions: Liver Failure Diet Add. Discharge Instructions: Drink plenty of clear liquids to stay well-hydrated. For confusion related to liver failure or for constipation you may use the lactulose as prescribed. Continue to use the Zofran (ondansetron) as prescribed for nausea and vomiting. A hospital sales representative from [facility] should be contacting you at the phone number you provided for an informative consultation. A prescription for Lasix (furosemide) is being provided to help manage swelling if needed. Elevating the legs above the level of the heart should also be very helpful. If you use the Lasix, please also give a dose of potassium. Call with questions or concerns. If you have issues that require urgent care that cannot be managed by hospice, you may return to the emergency room. All discharge instructions reviewed with patient and/or family. Voiced understanding. Scripts Potassium Chloride (Potassium Chloride) 10 Meq Capsule.er 10 MEQ PO DAILY PRN for edema, #10 CAP Take only if taking lasix (furosemide) Prov: BULE RUDOLPH MD 03/03/21 Furosemide (Lasix) 20 Mg Tablet 20 MG PO DAILY PRN for edema, #10 TAB Prov: BLUE RUDOLPH MD 03/03/21 Lactulose (Lactulose) 20 Gm/30 Ml Solution 20 GM PO BID PRN for CONSTIPATION-1ST LINE, #300 ML Use for hepatic encephalopathy (confusion) and/or constipation Prov: BLUE RUDOLPH MD 03/03/21 Copy Copies To 1: VERNON STEEL JOSHUA T MD Mar 03, 2021 11:27
--- NOTE | 2021-03-03 11:52 | Diagnostic Imaging Report ---
PROCEDURE: US Gallbladder. TECHNIQUE: Multiple real-time grayscale images were obtained over the right upper quadrant in various projections. INDICATION: Elevated bilirubin. The liver demonstrates a markedly heterogeneous parenchymal pattern consistent with widespread metastatic disease. The liver does have a nodular contour. No definite intrahepatic biliary ductal dilatation is seen. Extrahepatic bile duct measures 7 mm. No definite gallstones are identified. Gallbladder wall is approximately 3 mm in thickness. Trace pericholecystic fluid is noted. Pancreas is poorly visualized. Aorta is nonaneurysmal. IVC is patent. The right kidney is without calculi or hydronephrosis. No significant ascites is identified. IMPRESSION: Markedly heterogeneous liver consistent with diffuse metastatic disease. No significant biliary ductal dilatation is seen. Dictated by: Dictated on workstation # [id number]
[2021-03-03] MEDS ORDERED: NS IV 500 ML 500 ML IV ONE (12:00)
[2021-03-03] MEDS ORDERED: IOHEXOL 350 MG/ML 100 ML (OMNIPAQUE 350) VIAL IV ONE (13:00)
[2021-03-03] MEDS ORDERED: NS 100 ML (IVPB) BAG IV ONE (13:00)
[2021-03-03] MEDS ORDERED: HOLD METFORMIN - RECEIVED CONTRAST 20 ML VIAL IV SCH (13:00)
--- NOTE | 2021-03-03 13:31 | Diagnostic Imaging Report ---
EXAMINATION: CT neck, chest, abdomen and pelvis with intravenous contrast. TECHNIQUE: Multiple contiguous axial images were obtained through the neck, chest, abdomen and pelvis after the uneventful administration of intravenous contrast. All CT scans use one or more of the following dose optimizing techniques: automated exposure control, MA and/or KvP adjustment based on patient size and exam type or iterative reconstruction. HISTORY: Metastatic breast cancer COMPARISON: 01/22/2021, 01/08/2021 FINDINGS: Neck CT: No pathologically enlarged lymphadenopathy. Vessels of the neck demonstrate normal course and caliber. Fascial planes are preserved and the deep spaces of the neck are normal. The visualized airway is widely patent. Please see same day CT head for intracranial findings. Degenerative changes of the spine without suspicious osseous lesion or compression fracture. Chest CT: Thyroid: The visualized thyroid gland is normal. Mediastinum: Heart size is normal without significant pericardial effusion. Calcifications of the aorta and coronary vessels. Thoracic aorta is normal in caliber. Left-sided portacatheter is present. Mildly decreased size of the prominent mediastinal lymph node measuring up to 0.8 cm short axis. Lungs and airways: There are innumerable bilateral pulmonary nodules measuring up to 1.8 cm in the right upper lobe. There are a few of these nodules have mildly increased in size from prior exam (personal financial representative 1.0 cm left upper lobe pulmonary nodule, series 2 image 29). There is a small right pleural effusion. No pneumothorax. The airways are normal. Abdomen and Pelvis CT: Solid organs: Diffuse heterogeneous attenuation throughout the liver compatible with diffuse metastatic disease, significantly progressed from 01/22/2021. The gallbladder is normal. There is no biliary ductal dilation. Pancreas is normal. Spleen is normal. Adrenal glands are normal. The kidneys are normal without hydronephrosis. Bowel: The stomach and small bowel are normal without obstruction. The colon and appendix are normal. Peritoneum: There is mild abdominal and pelvic ascites. No suspicious lymphadenopathy. Vasculature: Calcification of the aorta without aneurysm. Musculoskeletal: Stable multilevel degenerative changes of the spine with stable chronic appearing metastases within the ribs, sternum, and thoracic spine. Multiple right rib fractures are unchanged. Pelvis: The uterus and adnexa are normal. The urinary bladder is normal. IMPRESSION: 1. Progressive pulmonary and hepatic metastatic disease compared to 01/08/2021. 2. Small right pleural effusion and mild ascites likely related to metastatic disease. 3. Stable osseous metastatic disease. Dictated by: Dictated on workstation # [id number]
--- NOTE | 2021-03-03 13:39 | Diagnostic Imaging Report ---
EXAMINATION: CT head with and without contrast. TECHNIQUE: Multiple contiguous axial images were obtained through the brain with and without the use of intravenous contrast. All CT scans use one or more of the following dose optimizing techniques: automated exposure control, MA and/or KvP adjustment based on a patient size and exam type, or iterative reconstruction. HISTORY: Metastatic breast cancer. COMPARISON: None available. FINDINGS: The ventricles and sulci are normal. No abnormal attenuation of brain parenchyma is present. No acute intracranial hemorrhage or abnormal extra-axial fluid collections are present. There are two enhancing lesions seen within the right frontal lobe and left thalamus measuring up to 0.7 cm. No hyperdense vessel. The calvarium is intact. The mastoid air cells are clear. The visualized paranasal sinuses are clear. The orbits are normal. IMPRESSION: 1. Two enhancing lesions within the right frontal lobe and left thalamus measuring up to 0.7 cm concerning for intracranial metastases. Dictated by: Dictated on workstation # [id number]
[2021-03-03 14:33] LABS: CLARITY,URINE CLEAR; COLOR,URINE AMBER; GLUCOSE, URINE (UA) TRACE (NEGATIVE); KETONES,URINE TRACE (NEGATIVE); LEUKOCYTE ESTERASE ,URINE NEGATIVE (NEGATIVE); NITRITE,URINE NEGATIVE (NEGATIVE); PH,URINE 5.5 (5-9); PROTEIN,URINE TRACE (NEGATIVE)
[2021-03-03 14:51] LABS: BACTERIA,URINE NEGATIVE /HPF; BILIRUBIN,URINE 3+ (NEGATIVE); HYALINE CASTS, URINE 0-2 /LPF; WBC,URINE RARE /HPF
[2021-03-03] MEDS ORDERED: NS IV 1000 ML 1,000 ML IV SCH (15:45)
[2021-03-03] MEDS ORDERED: FURO-125 PO (16:00)
[2021-03-03] MEDS ORDERED: LACT20SO2 PO (16:00)
[2021-03-03] MEDS ORDERED: POTA10CA43 PO (16:00)
[2021-03-03 17:10] VITALS: BP 106/66
== END 2021-03-03 17:21 | disposition home or self-care (01) ==
LOC: EDUNIT# 09:55 → ER 09:59
DX: C78.7 Secondary malignant neoplasm of liver and intrahepatic bile duct (principal); C79.31 Secondary malignant neoplasm of brain; R41.82 Altered mental status, unspecified; K72.90 Hepatic failure, unspecified without coma; E80.6 Other disorders of bilirubin metabolism; R18.8 Other ascites; R13.10 Dysphagia, unspecified; Z72.0 Tobacco use
CPT/HCPCS: 36415; 51701; 70470; 70491; 71260; 74176; 76705; 80053; 81000; 82140; 83690; 83735; 83880; 85007; 85027; 85610